=== PATIENT | male | born 1945 | race Caucasian/White ===

== ENCOUNTER → 2020-02-23 08:26 | Outpatient (BNVA) | payer OTHER, SELFPAY | PROVIDERS: Family Provider Family Medicine; PCP Family Medicine; Visit Provider Urology | DX: N13.5 Crossing vessel and stricture of ureter without hydronephrosis (principal); N52.1 Erectile dysfunction due to diseases classified elsewhere; N40.1 Benign prostatic hyperplasia with lower urinary tract symptoms | CPT/HCPCS: 81001 ==

== ENCOUNTER → 2020-06-21 15:55 | Outpatient (BNVA) | payer OTHER, SELFPAY | PROVIDERS: Family Provider Family Medicine; PCP Family Medicine; Visit Provider Dermatology | DX: D48.9 Neoplasm of uncertain behavior, unspecified (principal) | CPT/HCPCS: 88304 ==

== ENCOUNTER 2020-12-21 12:11 | Emergency (ER) | payer OTHER, SELFPAY ==
[2020-12-21 12:17] VITALS: BP 138/82; PULSE 61; RESP 16; TEMP 36.4; O2SAT 95; BMI 33.0
--- NOTE | 2020-12-21 13:33 | ECG_ITS ---
[facility] Test Date: 2020-12-21 Pat Name: Roverto Crawley Department: Room: Gender: Male Manager Medicare: : 1945 Requested By: Chandler Cheema Order Number: [id number] Rogelio MD: Francisco Carroll M.D. Measurements Intervals [place] Rate: 64 P: [place]: QRS: -39 QRSD: 97 T: 40 QT: 400 QTc: 413 Interpretive Statements Sinus bradycardia with a demand AV pacing ELECTRONIC VENTRICULAR PACEMAKER -- CONTOUR ANALYSIS BASED ON INTRINSIC RHYTHM MARKED LEFT AXIS DEVIATION [QRS AXIS < -30] Compared to ECG 02/02/2019 18:08:53 Sinus rhythm no longer present Electronically Signed On 12-22-2020 10:10:21 CDT by Francisco Carroll M.D. [id number]
[2020-12-21 13:59] LABS: Basophils % 0.3 %; Eosinophils # 0.1 10^3/uL (0.0-0.8); Eosinophils % 1.1 %; Hematocrit 44.4 % (42.0-52.0); Hemoglobin 14.8 g/dL (11.7-16.6); Lymphocytes # 2.7 10^3/uL (0.8-4.8); Lymphocytes % 29.1 %; Mean Corpuscular HGB Conc 33.3 g/dL (30.0-36.0); Mean Corpuscular Hemoglobin 30.6 pg (28.0-34.0); Mean Corpuscular Volume 91.9 fL (80-94); Mean Platelet Volume 10.1 fL (7.4-10.4); Monocytes # 1.1 10^3/uL (0.2-0.9); Monocytes % 11.9 %; Neutrophils # 5.37 10^3/uL (1.8-7.7); Neutrophils % 57.1 %; Nucleated Red Blood Cells % 0 %; Platelet Count 222 10^3/cmm (130-400); Red Blood Count 4.83 10^6/uL (4.1-5.3); White Blood Count 9.4 10^3/uL (4.0-10.0)
--- NOTE | 2020-12-21 14:12 | CT_ITS ---
WS: [id number] CT scan of the head, 12/21/2020 Clinical Data: leg weakness, dizziness Comparison: None. DLP: 1003.[address] scans at [facility] use at least one of these dose optimization techniques: automat ed exposure control; mA and/or kV adjustment per patient size (includes targeted exams where dose is matched to clinical indication); or iterative reconstruction. Findings: The ventricular system is minimally dilated without shift. No recent infarct or hemorrhage is seen. T here are no abnormal intracerebral masses. The cerebellum and brainstem are not remarkable. Bony windows of the skull and skull base show no fractures or erosions. The mastoid air cells, customer operations intern al auditory canals, sella turcica, intraorbital contents, and paranasal sinuses are unremarkable. CT/CT head wo con* [id number] Impression: Negative CT scan of the head
--- NOTE | 2020-12-21 14:12 | XR_ITS ---
WS: [id number] Portable AP upright chest, 12/21/2020 Clinical Data: weakness Comparison: Portable chest, 11/19/2017. Findings: No nodules, masses or effusions are seen. The heart is normal. The pulmonary vascularity is not increased. No pneumonia or pneumothorax is seen. The aortic arch and descending aorta show tortu osity. There is a permanent pacemaker unchanged in position. XR/XR chest 1V portable [id number] Impression: Atherosclerosis and prominent cardiac pacemaker.
[2020-12-21 14:22] LABS: Alanine Aminotransferase 21 U/L (0-41); Albumin Level 4.4 g/dL (3.5-5.2); Alkaline Phosphatase 83 IU/L (40-130); Anion Gap 15.1 (5-19); Aspartate Amino Transferase 22 U/L (0-40); Blood Urea Nitrogen 17 mg/dL (8-23); Calcium 8.8 mg/dL (8.5-10.5); Carbon Dioxide 25 mmol/L (22-29); Chloride 104 mmol/L (98-107); Globulin 2.4 g/dL (1.3-4.6); Glucose 92 mg/dL (65-115); Osmolality Calculated 291 mOsm/kg (285-295); Potassium 4.1 mmol/L (3.5-5.1); Sodium 140 mmol/L (136-145); Total Bilirubin 0.3 mg/dL (0.15-1.2); Total Protein 6.8 g/dL (6.6-8.7)
[2020-12-21 14:24] LABS: Add Urine Microscopic? NO; Charge for UA Resulting for Rev
[2020-12-21 14:37] LABS: Blood Urine Neg (Negative); Glucose Urine UA Norm (Normal); Ketones Urine Negative (Negative); Protein Urine Neg (Negative); Urine Appearance Clear (CLEAR); Urine Color Yellow (Yellow); pH Urine 5 (5-7)
[2020-12-21 14:38] LABS: Bilirubin Urine Neg (Negative); Leukocyte Esterase Urine Negative (Negative); Nitrate Urine Negative (Negative); Urobilinogen Urine Norm (Negative)
[2020-12-21 15:29] VITALS: PULSE 64; RESP 20; O2SAT 93
--- NOTE | 2020-12-21 15:44 | W.ED.DIZZY ---
HPI - Dizziness General: Chief Complaint: Dizziness Stated Complaint: dizzy, weakness, R hand numbness Time Seen by Provider: 12/21/20 13:56 History of Present Illness: HPI Narrative: 75-year-old male presents with some dizziness, being off balance. Patient reports that he has had some issues for about a month. The he thought maybe had a little bit of right-handed numbness today so he presented to be evaluated. Patient's dizziness seems to be more related when he stands up or closes his eyes. Patient states is more of just being off balance than actual vertigo. Associated symptoms: Denies chest pain, chills, nausea, palpitations or vomiting Review of Systems Const: Denies: fever(s) or chills Eyes: Denies: change in vision or blurry vision ENMT: Denies: throat pain Card: Denies: chest pain or palpitations Resp: Denies: dyspnea or productive cough GI: Denies: abdominal pain, nausea or vomiting : Denies: flank pain or difficulty urinating Skin/Breast: Denies: rash or pruritus Neuro: Reports: other (Please see HPI) Psych: Denies: anxiety Endo: Denies: polyuria PFSH ED PFSH: Medical History Atrial fibrillation BPH NOS w ur obs/LUTS Diabetes mellitus Elevated PSA (~08/13/20) Erectile dysfunction History of nonmelanoma skin cancer Hyperlipidemia Hypertension 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 Ureteral stricture Surgical History H/O hernia repair H/O spinal fusion History of knee replacement Family History Other CAD (coronary artery disease) Cancer Diabetes Stroke Social History Smoking and tobacco status: former smoker Alcohol intake: never Marital status: Physical Exam Const: COMMON NORMALS: no acute distress, average body habitus, patient oriented x3 and healthy appearing HENMT: COMMON NORMALS: normocephalic and atraumatic HEAD & SCALP: normocephalic and atraumatic Eye: COMMON NORMALS: Equal, round and reactive pupils present and EOMs intact bilaterally PUPIL: Yes Equal, round and reactive pupils present Neck/C-Spine: COMMON NORMALS: full ROM and supple Resp: COMMON NORMALS: normal respiratory effort, No retractions and clear to auscultation bilaterally AUSCULTATION: clear to auscultation bilaterally Cardio: COMMON NORMALS: regular rate and regular rhythm RATE: regular rate RHYTHM: regular rhythm GI: COMMON NORMALS: Normal to inspection, nondistended, normoactive bowel sounds present, Soft to palpation and non-tender PALPATION: Yes Soft to palpation Neuro: COMMON NORMALS: patient oriented x3, CN's II-XII intact bilaterally, moves all extremities and no focal motor deficits SPEECH: speech normal GAIT: Yes Normal gait present MOTOR EXAM: 5/5 motor strength present throughout Psych: COMMON NORMALS: Normal thought process present, cooperative, normal affect and speech normal SPEECH: Yes normal speech THOUGHT PROCESS: Normal thought process present Skin: COMMON NORMALS: no rashes or lesions noted GENERAL SKIN EXAM: no rashes or lesions noted Course Vital Signs: Vital signs: Vital Signs Temperature 97.5 F L 12/21/20 12:17 Pulse Rate 64 12/21/20 15:29 Respiratory Rate 20 H 12/21/20 15:29 Blood Pressure 138/82 12/21/20 12:17 Pulse Oximetry 93 12/21/20 15:29 MDM - Dizziness MDM Narrative: Medical decision making narrative: Patient symptoms have been going on for at least a month. He has no acute physical findings. Patient symptoms seem to be more with lack of proprioception versus actual vertigo. Discussed with him that need to follow-up with his primary care provider for further outpatient evaluation. Lab Data: Attestation: I reviewed the patient's lab results. Labs: Lab Results 12/21/20 12/21/20 12/21/20 Range/Units 13:42 13:42 13:42 WBC 9.4 (4.0-10.0) 10^3/ uL RBC 4.83 (4.1-5.3) 10^6/u L Hgb 14.8 (11.7-16.6) g/dL Hct 44.4 (42.0-52.0) % MCV 91.9 (80-94) fL MCH 30.6 (28.0-34.0) pg MCHC 33.3 (30.0-36.0) g/dL RDW 13.0 (12.1-15.1) % Plt Count 222 (130-400) 10^3/c mm MPV 10.1 (7.4-10.4) fL Neut % (Auto) 57.1 % Lymph % (Auto) 29.1 % [place] % (Auto) 11.9 % Eos % (Auto) 1.1 % Baso % (Auto) 0.3 % Neut # (Auto) 5.37 (1.8-7.7) 10^3/u L Lymph # (Auto) 2.7 (0.8-4.8) 10^3/u L [place] # (Auto) 1.1 H (0.2-0.9) 10^3/u L Eos # (Auto) 0.1 (0.0-0.8) 10^3/u L Baso # (Auto) 0.0 (0.0-0.1) 10^3/u L Nucleated RBC % (a uto) 0 % Nucleated RBCs # 0.0 /100WBC Sodium 140 (136-145) mmol/L Potassium 4.1 (3.5-5.1) mmol/L Chloride 104 (98-107) mmol/L Carbon Dioxide 25 (22-29) mmol/L Anion Gap 15.1 (5-19) BUN 17 (8-23) mg/dL Creatinine 1.0 (0.7-1.2) mg/dL GFR Calculation Not Reportable Glucose 92 (65-115) mg/dL Calculated Osmolal ity 291 (285-295) mOsm/k g Calcium 8.8 (8.5-10.5) mg/dL Magnesium 2.1 (1.7-2.3) mg/dL Total Bilirubin 0.3 (0.15-1.2) mg/dL AST 22 (0-40) U/L ALT 21 (0-41) U/L Alkaline Phosphata se 83 (40-130) IU/L Total Protein 6.8 (6.6-8.7) g/dL Albumin 4.4 (3.5-5.2) g/dL Globulin 2.4 (1.3-4.6) g/dL Urine Color (Yellow) Urine Appearance (CLEAR) Urine pH (5-7) Ur Specific Gravit y (1.005-1.030) Urine Protein (Negative) Urine Glucose (UA) (Normal) Urine Ketones (Negative) Urine Blood (Negative) Urine Nitrate (Negative) Urine Bilirubin (Negative) Urine Urobilinogen (Negative) mg/dL Ur Leukocyte Xenia ase (Negative) 12/21/20 Range/Units 14:17 WBC (4.0-10.0) 10^3/ uL RBC (4.1-5.3) 10^6/u L Hgb (11.7-16.6) g/dL Hct (42.0-52.0) % MCV (80-94) fL MCH (28.0-34.0) pg MCHC (30.0-36.0) g/dL RDW (12.1-15.1) % Plt Count (130-400) 10^3/c mm MPV (7.4-10.4) fL Neut % (Auto) % Lymph % (Auto) % [place] % (Auto) % Eos % (Auto) % Baso % (Auto) % Neut # (Auto) (1.8-7.7) 10^3/u L Lymph # (Auto) (0.8-4.8) 10^3/u L [place] # (Auto) (0.2-0.9) 10^3/u L Eos # (Auto) (0.0-0.8) 10^3/u L Baso # (Auto) (0.0-0.1) 10^3/u L Nucleated RBC % (a uto) % Nucleated RBCs # /100WBC Sodium (136-145) mmol/L Potassium (3.5-5.1) mmol/L Chloride (98-107) mmol/L Carbon Dioxide (22-29) mmol/L Anion Gap (5-19) BUN (8-23) mg/dL Creatinine (0.7-1.2) mg/dL GFR Calculation Glucose (65-115) mg/dL Calculated Osmolal ity (285-295) mOsm/k g Calcium (8.5-10.5) mg/dL Magnesium (1.7-2.3) mg/dL Total Bilirubin (0.15-1.2) mg/dL AST (0-40) U/L ALT (0-41) U/L Alkaline Phosphata se (40-130) IU/L Total Protein (6.6-8.7) g/dL Albumin (3.5-5.2) g/dL Globulin (1.3-4.6) g/dL Urine Color Yellow (Yellow) Urine Appearance Clear (CLEAR) Urine pH 5 (5-7) Ur Specific Gravit y 1.020 (1.005-1.030) Urine Protein Neg (Negative) Urine Glucose (UA) Norm (Normal) Urine Ketones Negative (Negative) Urine Blood Neg (Negative) Urine Nitrate Negative (Negative) Urine Bilirubin Neg (Negative) Urine Urobilinogen Norm (Negative) mg/dL Ur Leukocyte Xenia ase Negative (Negative) Imaging Data^: CXR: Attestation: I personally reviewed and interpreted this imaging study as follows: My impression: No acute findings Radiologist's impression: Negative chest x-ray CT Head: Radiologist's impression: Negative head CT EKG Data^: EKG 1: Attestation: I personally reviewed and interpreted this EKG as follows: EKG interpretation date: 12/21/20 EKG interpretation time: 13:53 Interpretation: Paced , no acute findins HR 64, non specific changes Discharge Plan Discharge Condition: Stable Prescriptions: No Action gabapentin 300 mg capsule 300 mg PO BEDTIME RF: 0 alendronate 70 mg tablet 70 mg PO Q7D RF: 0 apixaban 5 mg tablet 5 mg PO BID RF: 0 cholecalciferol (vitamin D3) 25 mcg (1,000 unit) capsule 1,000 unit PO DAILY RF: 0 rosuvastatin 20 mg tablet 10 mg PO DAILY RF: 0 tamsulosin 0.4 mg capsule 0.4 mg PO DAILY RF: 0 hydrochlorothiazide 25 mg tablet 25 mg PO DAILY RF: 0 valsartan 160 mg tablet 80 mg PO DAILY RF: 0 metformin 500 mg tablet 250 mg PO BID RF: 0 diltiazem HCl 120 mg capsule,extended release 24hr 120 mg PO DAILY RF: 0 furosemide 20 mg tablet 20 mg PO DAILY RF: 0 potassium chloride 20 mEq tablet,ER particles/crystals 10 meq PO DAILY RF: 0 metoprolol succinate 50 mg tablet extended release 24 hr 75 mg PO DAILY RF: 0 hydrocortisone 2.5 % Cream 1 applic TOPICAL BID PRN (Reason: SCALING ON FACE OR EARS) RF: 0 hydroxyzine HCl 10 mg Tablet 10 mg PO BID RF: 0 sodium fluoride-pot nitrate 1.1-5 % Paste 1 applic DENTAL DAILY RF: 0 benzoyl peroxide 2.5 % Cream 1 applic TOPICAL TID PRN (Reason: Acne) RF: 0 Discharge Orders: Discharge ED (Routine); Ordered 12/21/20 Ordered By: Chandler Cheema Referrals: Catrina Snyder [Primary Care Provider] - Discharge Diet: Usual diet Discharge Activity: Resume usual activity Patient Instructions: Dizziness (ED), Vertigo (ED) Activity Restrictions/Additional Instructions: Follow-up with your primary care provider for further evaluation and recheck of todays symptoms Coding Level of Care Code ED Recordings Librarian for Pily Aguirre
[2020-12-21 15:54] LABS: Magnesium 2.1 mg/dL (1.7-2.3)
[2020-12-21 16:25] VITALS: BP 104/71; PULSE 61; RESP 20; O2SAT 94
== END 2020-12-21 16:27 | disposition home or self-care (01) ==
PROVIDERS: Emergency Provider Student in an Organized Health Care Education/Training Program; PCP Psychiatry & Neurology Neurology
DX: R42 Dizziness and giddiness (principal); I48.91 Unspecified atrial fibrillation; E11.9 Type 2 diabetes mellitus without complications; E78.5 Hyperlipidemia, unspecified; I10 Essential (primary) hypertension; Z95.0 Presence of cardiac pacemaker; Z87.891 Personal history of nicotine dependence
CPT/HCPCS: 70450; 71045; 80053; 81003; 83735; 85025; 93005; 99283

== ENCOUNTER 2021-01-11 09:13 | Outpatient (RCR) | payer OTHER, SELFPAY | END 2021-02-01 23:59 | disposition home or self-care (01) | LOC: SPT 09:13 | PROVIDERS: PCP Psychiatry & Neurology Neurology; Referring Provider Family Medicine; Visit Provider Family Medicine | DX: I69.90 Unspecified sequelae of unspecified cerebrovascular disease (principal) | CPT/HCPCS: 97110; 97112; 97161 ==

== ENCOUNTER 2021-02-02 06:00 | Outpatient (RCR) | payer OTHER, SELFPAY | END 2021-03-04 23:59 | disposition home or self-care (01) | LOC: SPT 06:00 | PROVIDERS: PCP Psychiatry & Neurology Neurology; Referring Provider Family Medicine; Visit Provider Family Medicine | DX: I69.90 Unspecified sequelae of unspecified cerebrovascular disease (principal) | CPT/HCPCS: 97110; 97112 ==

== ENCOUNTER 2021-02-10 13:03 | Outpatient (CLI) | payer OTHER, SELFPAY ==
--- NOTE | 2021-02-10 | CT_ITS ---
WS: [id number] CTA HEAD AND NECK TECHNIQUE: Contrast enhanced CTA of the head and neck with coronal and sagittal reformatted images an d maximum intensity projection (MIP) images. NASCET criteria utilized. CLINICAL INFORMATION: CVA COMPARISON: None. DLP: 1449.[address] scans at [facility] use at least one of these dose optimization techniques: automat ed exposure control; mA and/or kV adjustment per patient size (includes targeted exams where dose is matched to clinical indication); or iterative reconstruction. FINDINGS: RIGHT: Right common carotid artery is patent. Mild calcified atheromatous disease right proximal ICA. No significant right ICA stenosis. Right ICA is patent to the skull base. LEFT: Left common carotid artery is patent. No significant left ICA stenosis. Left ICA is patent to t he skull base. INTRACRANIAL CTA: Both vertebral arteries are patent. Codominant and patent vertebral arteries bilaterally. Basilar art olivia is patent. Normal vascularity to the TORPEDOMAN'S MATE territory bilaterally. Persistent right TORPEDOMAN'S MATE. Cavernous carotid calcification. Patent anterior communicating artery. Hypoplastic right A1 segment. Normal vascularity to the JIM and MCA territories bilaterally. No evidence of flow-limiting stenosis or aneurysm. Lung apices are well aerated. 2 right thyroid nodules measuring up to 17 mm. Normal posterior nasopha rynx. Advanced spondylitic changes cervical spine with ankylosis C5-C7. Anterior hypertrophic changes . Normal visualized dural venous sinuses. CT/CT angio headneck* [id number] IMPRESSION: 1. No significant ICA stenosis bilaterally. Mild calcified atheromatous plaque right carotid bulb. Both ICAs are patent to the skull base. 2. Mild cavernous carotid calcification. No flow-limiting intracranial stenosi s. 3. Normal variant hypoplastic right A1 segment. 4. Codominant and patent vertebral arteries bilaterally. Persistent right feta l TORPEDOMAN'S MATE. 5. No other significant findings. 6. Right thyroid nodules. This can be followed up with ultrasound.
--- NOTE | 2021-02-10 | CT_ITS ---
WS: [id number] CT HEAD TECHNIQUE: Noncontrast CT of the head obtained from the skullbase to the vertex. CLINICAL INFORMATION: CVA COMPARISON: CT December 21, 2020 DLP: 1058.[address] scans at [facility] use at least one of these dose optimization techniques: automat ed exposure control; mA and/or kV adjustment per patient size (includes targeted exams where dose is matched to clinical indication); or iterative reconstruction. FINDINGS: No evidence of intracranial hemorrhage or mass effect. Ventricular system and basal cisterns are dunaway nt. Mild small vessel changes with mild parenchymal volume loss. No extra-axial fluid collections. No evidence of mass or mass effect. Normal duggan-white differentiation. Paranasal sinuses and mastoid air cells are well aerated. .Normal visualized soft tissues. CT/CT head wo con* [id number] IMPRESSION: 1. No evidence of intracranial hemorrhage or mass effect. 2. Mild small vessel changes. Mild parenchymal volume loss. 3. No acute intracranial findings.
[2021-02-10] MEDS: iohexol 350 mg/mL 100 mL Btl IV (14:14)
== END 2021-02-10 13:04 | disposition home or self-care (01) ==
LOC: RADWPI 13:07
PROVIDERS: PCP Psychiatry & Neurology Neurology; Visit Provider Family Medicine
DX: I63.9 Cerebral infarction, unspecified (principal); E04.2 Nontoxic multinodular goiter; I65.23 Occlusion and stenosis of bilateral carotid arteries
CPT/HCPCS: 70450; 70496; 70498; Q9967

== ENCOUNTER 2021-05-24 06:00 | Outpatient (RCR) | payer OTHER, SELFPAY | END 2021-06-04 23:59 | disposition home or self-care (01) | LOC: SPT 06:00 | PROVIDERS: PCP Psychiatry & Neurology Neurology; Referring Provider Family Medicine; Visit Provider Family Medicine | DX: M54.16 Radiculopathy, lumbar region (principal) | CPT/HCPCS: 97110; 97161 ==

== ENCOUNTER 2021-05-25 12:21 | Outpatient (CLI) | payer OTHER, SELFPAY ==
--- NOTE | 2021-05-25 12:30 | US_ITS ---
WS: [id number] ULTRASOUND THYROID TECHNIQUE: Ultrasound of the thyroid. CLINICAL INFORMATION: NODULE COMPARISON: None. FINDINGS: Thyroid: Right and left thyroid lobes are normal in size and echotexture. Isoechoic right thyroid nod ule in the mid thyroid measuring 1.9 x 1.6 x 2.2 cm. Additional nodule in the thyroid isthmus measuri ng 2.0 x 0.9 x 2.4 cm. No nodules in the left thyroid. Right thyroid lobe: 4.0 cm x 2.1 cm x 2.5 cm Left thyroid lobe: 2.8 cm x 1.5 cm x 1.1 cm. Isthmus: 0.6 mm. Cervical lymphadenopathy: None. US/US thyroid [id number] IMPRESSION: Isoechoic right thyroid nodule in the mid thyroid measuring 1.9 x 1.6 x 2.2 cm. Additional nodule in the thyroid isthmus measuring 2.0 x 0.9 x 2.4 cm. Recommen d further evaluation of the above 2 solid nodules with FNA.
== END 2021-05-25 12:22 | disposition home or self-care (01) ==
LOC: RAD 12:22
PROVIDERS: PCP Psychiatry & Neurology Neurology; Visit Provider Family Medicine
DX: E04.2 Nontoxic multinodular goiter (principal)
CPT/HCPCS: 76536

== ENCOUNTER 2021-06-05 06:00 | Outpatient (RCR) | payer OTHER, SELFPAY | END 2021-07-04 23:59 | disposition home or self-care (01) | LOC: SPT 06:00 | PROVIDERS: PCP Psychiatry & Neurology Neurology; Visit Provider Family Medicine | DX: M54.16 Radiculopathy, lumbar region (principal) | CPT/HCPCS: 97110 ==

== ENCOUNTER 2021-07-05 06:00 | Outpatient (RCR) | payer OTHER, SELFPAY | END 2021-08-04 23:59 | disposition home or self-care (01) | LOC: SPT 06:00 | PROVIDERS: PCP Psychiatry & Neurology Neurology; Visit Provider Family Medicine | DX: M54.16 Radiculopathy, lumbar region (principal) | CPT/HCPCS: 97110 ==

== ENCOUNTER → 2021-11-03 08:46 | Outpatient (BNVA) | payer OTHER, SELFPAY | PROVIDERS: PCP Psychiatry & Neurology Neurology; Visit Provider Internal Medicine Cardiovascular Disease | DX: Z95.0 Presence of cardiac pacemaker (principal) ==

== ENCOUNTER → 2021-11-13 13:41 | Outpatient (BNVA) | payer OTHER, SELFPAY | PROVIDERS: PCP Psychiatry & Neurology Neurology; Visit Provider Nurse Practitioner Family | DX: I10 Essential (primary) hypertension (principal); I48.11 Longstanding persistent atrial fibrillation; Z95.0 Presence of cardiac pacemaker; Z87.891 Personal history of nicotine dependence | CPT/HCPCS: 99213; 99214 ==

== ENCOUNTER 2021-11-15 08:13 | Outpatient (CLI) | payer OTHER, SELFPAY ==
--- NOTE | 2021-11-15 08:32 | CT_ITS ---
WS: [id number] CT CERVICAL SPINE HISTORY: CERVICAL RADICULOPATHY, limited range of motion. Numbness in both hands. TECHNIQUE: Contiguous 2.5 mm axial imaging performed through the entire cervical spine. Sagittal and coronal reformats also performed. All CT scans at [facility] use at least one of these dose o ptimization techniques: automated exposure control; mA and/or kV adjustment per patient size (include s targeted exams where dose is matched to clinical indication); or iterative reconstruction. DLP: 281.47 mGy.cm COMPARISON: None available. Mild straightening and slight reversal of the normal cervical lordosis. There is fusion across the di sc spaces of C5-6 and C6-7. This is a bony fusion. No hardware is present. Mild narrowing of the C7-T 1 disc space. Osteophytes throughout the cervical spine. Craniocervical junction is normally aligned. The odontoid is intact. The lateral masses are aligned. Facet joints are narrowed and sclerotic. C2-C3: Degenerative changes surrounding the odontoid tip. No fracture. Mild osteophytic ridging small osteophyte encroaching upon the LEFT lateral thecal sac and LEFT foramen. Bilateral facet joint arth ritis. Mild LEFT foraminal stenosis. C3-C4: Marked osteophytic ridging and facet joint arthritis. Resulting in mild central and bilateral foraminal stenosis, RIGHT greater than LEFT. C4-C5: Very small central disc protrusion and mild osteophytic ridging. No high-grade stenosis. C5-C6: Diffuse osteophytic ridging asymmetric to the RIGHT. There is mild encroachment into the subar ticular recess and proximal foramen. Mild central and RIGHT foraminal stenosis. C6-C7: Mild osteophytic ridging and mild RIGHT foraminal narrowing due to osteophyte disease. C7-T1: Diffuse osteophytic ridging and facet joint arthritis. Mild encroachment into the foramina. Lung apices are clear. CT/CT cervical spin wo con* [id number] IMPRESSION: 1. 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 2. Mild straightening of the normal cervical lordosis. 3. No fracture. 4. Mild LEFT foraminal stenosis at C2-3. 5. Mild central and bilateral foraminal stenosis at C3-4. 6. Mild central and RIGHT foraminal stenosis at C5-6. 7. Mild RIGHT foraminal stenosis at C6-7.
== END 2021-11-15 08:14 | disposition home or self-care (01) ==
LOC: RAD 08:21
PROVIDERS: PCP Psychiatry & Neurology Neurology; Visit Provider Family Medicine
DX: M54.12 Radiculopathy, cervical region (principal); M48.02 Spinal stenosis, cervical region; Z98.1 Arthrodesis status
CPT/HCPCS: 72125

== ENCOUNTER 2022-03-27 18:16 | Emergency (ER) | payer OTHER, MEDICARE, SELFPAY ==
--- NOTE | 2022-03-27 18:26 | ECG_ITS ---
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 Measurements Intervals [place] Rate: 61 P: 83 [place]: 187 QRS: -10 QRSD: 97 T: 25 QT: 431 QTc: 437 Interpretive Statements ELECTRONIC ATRIAL PACEMAKER INCOMPLETE RIGHT BUNDLE BRANCH BLOCK [90+ ms QRS DURATION, TERMINAL R IN V1/V2, 40+ ms S IN I/aVL/V4/V5/V6] ABNORMAL RHYTHM ECG Compared to ECG 12/21/2020 13:53:01 Incomplete right bundle-branch block now present Sinus bradycardia no longer present AV dual-paced complex(es) or rhythm no longer present Ventricular-paced complex(es) or rhythm no longer present Left-axis deviation no longer present Electronically Signed On 03-28-2022 0:17:03 CDT by Jett Rod M.D. [id number]
[2022-03-27 18:27] VITALS: BP 146/76; PULSE 63; RESP 18; TEMP 36.8; O2SAT 95; BMI 33.6
--- NOTE | 2022-03-27 18:41 | PC.NURSE ---
chest pain for a couple hours and shortness of breath began just prior to arrival. has a pacemaker. pt reports he can feel his heart skipping a beat and his pacemaker kick in. pt reports chest pain began at rest, while watching the news. describes pain as tightness. denies nausea, vomiting, diarrhea, fever. Reports hx afib. lung sounds clear bilat. bowel sounds present. abdomen soft and nontender to palpation.
--- NOTE | 2022-03-27 18:56 | PC.NURSE ---
report given to MORGAN Morocho
[2022-03-27 19:15] LABS: Basophils % 0.4 %; Eosinophils # 0.2 10^3/uL (0.0-0.8); Eosinophils % 1.9 %; Hematocrit 42.7 % (42.0-52.0); Lymphocytes # 2.9 10^3/uL (0.8-4.8); Lymphocytes % 31.5 %; Mean Corpuscular HGB Conc 32.8 g/dL (30.0-36.0); Mean Corpuscular Hemoglobin 30.8 pg (28.0-34.0); Mean Corpuscular Volume 94.1 fl (80-94); Mean Platelet Volume 9.8 fL (7.4-10.4); Monocytes % 10.6 %; Neutrophils # 5.08 10^3/uL (1.8-7.7); Nucleated Red Blood Cells % 0 %; Platelet Count 244 10^3/cmm (130-400); Red Blood Count 4.54 10^6/uL (4.1-5.3); White Blood Count 9.3 10^3/uL (4.0-10.0)
[2022-03-27 19:18] VITALS: BP 152/86; RESP 22; O2SAT 91
[2022-03-27 19:29] LABS: D Dimer 0.32 ug/mIFEU (0-0.59)
[2022-03-27 19:39] LABS: Troponin(5th) Baseline 12 ng/L (0-15)
[2022-03-27 19:42] LABS: Alanine Aminotransferase 20 U/L (0-41); Albumin Level 4.3 g/dL (3.5-5.2); Alkaline Phosphatase 88 U/L (40-130); Anion Gap 16.6 (5-19); Aspartate Amino Transferase 20 U/L (0-40); Blood Urea Nitrogen 17 mg/dL (8-23); Calcium 9.3 mg/dL (8.5-10.5); Carbon Dioxide 26 mmol/L (22-29); Chloride 102 mmol/L (98-107); Globulin 2.1 g/dL (1.3-4.6); Glucose 93 mg/dL (65-115); Osmolality Calculated 293 mOsm/kg (285-295); Potassium 3.6 mmol/L (3.5-5.1); Sodium 141 mmol/L (136-145); Total Bilirubin 0.3 mg/dL (0.15-1.2); Total Protein 6.4 g/dL (6.6-8.7)
[2022-03-27] MEDS: sodium chloride 0.9% 1,000 ML 999 ML IV (20:00)
[2022-03-27 20:01] VITALS: BP 165/98; PULSE 63; RESP 25; O2SAT 93
[2022-03-27 20:38] VITALS: BP 163/80; PULSE 65; RESP 20; O2SAT 95
--- NOTE | 2022-03-27 21:12 | ECG_ITS ---
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 Measurements Intervals [place] Rate: 65 P: 99 [place]: 176 QRS: -86 QRSD: 162 T: 84 QT: 494 QTc: 515 Interpretive Statements ELECTRONIC ATRIAL PACEMAKER ELECTRONIC VENTRICULAR PACEMAKER Compared to ECG 03/27/2022 18:26:04 Incomplete right bundle-branch block no longer present Electronically Signed On 03-28-2022 0:18:16 CDT by Jett Rod M.D. [id number]
--- NOTE | 2022-03-27 21:15 | W.ED.CHESTPA ---
HPI - Chest Pain General: Chief Complaint: Chest Pain Stated Complaint: Chest Pains Time Seen by Provider: 03/27/22 18:34 History of Present Illness: 77-year-old male presenting today with left-sided chest pain. Patient notes onset of pain 2 hours for arrival. Pain has been consistent. Also with intermittent lightheadedness. No prior history of coronary artery disease. Does have a history of atrial fibrillation for which he has a pacemaker. He denies fevers or chills. He does note some shortness of breath. Has a history of COPD. But does not feel like it is acting up. He denies pain or swelling in his lower extremities. Denies history of blood clots. Denies recent travel or recent surgeries. Review of Systems General: Reports: 10 or more systems reviewed and unremarkable except in HPI and below PFSH ED PFSH: Medical History Atrial fibrillation BPH NOS w ur obs/LUTS Diabetes mellitus Elevated PSA (~08/13/20) Erectile dysfunction History of nonmelanoma skin cancer Hyperlipidemia Hypertension 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 Ureteral stricture Surgical History H/O hernia repair H/O spinal fusion History of knee replacement Family History Other CAD (coronary artery disease) Cancer Diabetes Stroke Social History Smoking and tobacco status: former smoker Alcohol intake: never Marital status: Physical Exam Const: COMMON NORMALS: no acute distress, patient oriented x3 and alert GENERAL APPEARANCE: cooperative ORIENTATION/CONSCIOUSNESS: Yes awake, Yes oriented to person, Yes oriented to place and Yes oriented to time HENMT: COMMON NORMALS: normocephalic, atraumatic, external ears normal, Normal external nose present and moist oral mucous membranes HEAD & SCALP: normal to inspection, normocephalic and atraumatic NOSE: Normal external nose present GENERAL EAR: hearing grossly impaired EXTERNAL EAR: Yes external ears normal Eye: COMMON NORMALS: Equal, round and reactive pupils present, EOMs intact bilaterally, conjunctivae normal and no scleral icterus GENERAL EYE: appearance normal, both eyes and all related structures EYELID: eyelids normal CONJUNCTIVA: Yes conjunctivae normal SCLERA: sclerae normal PUPIL: Yes Equal, round and reactive pupils present Neck/C-Spine: COMMON NORMALS: full ROM, supple and no JVD GENERAL: Yes normal visual inspection Lymph: LYMPHATIC: no lymphadenopathy noted and no lymphedema noted Chest: COMMONS NORMALS: normal inspection of the chest Resp: COMMON NORMALS: normal respiratory effort, No retractions and No use of accessory muscles Cardio: COMMON NORMALS: no JVD, regular rate and regular rhythm RATE: regular rate RHYTHM: regular rhythm GI: COMMON NORMALS: Normal to inspection, nondistended, normoactive bowel sounds present : COMMON NORMALS: Yes no CVA tenderness BLADDER/KIDNEY EXAM: Yes no CVA tenderness Back/Pelvis: COMMON NORMALS: no CVA tenderness and thoracic and lumbar spine normal to inspection Extremity: COMMON NORMALS: normal to inspection, full ROM and capillary refill normal GENERAL: Yes normal exam except as noted Neuro: COMMON NORMALS: patient oriented x3, CN's II-XII intact bilaterally, moves all extremities, no focal motor deficits, no sensory deficits noted and gait normal SENSORIUM/ORIENTATION: Yes alert, Yes oriented to person, Yes oriented to place and Yes oriented to time Psych: COMMON NORMALS: mental status grossly normal, Normal thought process present, cooperative and normal affect THOUGHT PROCESS: Normal thought process present Skin: COMMON NORMALS: no rashes or lesions noted and no wounds GENERAL SKIN EXAM: no rashes or lesions noted Course Vital Signs: Vital signs: Vital Signs Temperature 98.2 F 03/27/22 18:27 Pulse Rate 65 03/27/22 20:38 Respiratory Rate 20 H 03/27/22 20:38 Blood Pressure 163/80 03/27/22 20:38 Pulse Oximetry 95 03/27/22 20:38 Oxygen Delivery Me thod 03/27/22 20:38 MDM - Chest Pain Medical Decision Making 77-year-old male presenting today with chest pain. Initial EKG without evidence of ST wave changes. Repeat EKG with evidence of ventricular capture pacemaker. Patient noting almost complete resolution of symptoms. Initial troponin and repeat troponin are within normal range. CBC and CMP are unremarkable. Chest x-ray is unremarkable. Recommended routine follow-up with patient's inspector watch train. Patient was given return precautions and recommended routine outpatient follow-up Lab Data : 03/27/22 19:03/27/22 19: Laboratory Results WBC 9.3 10^3/uL (4.0-10.0) 03/27/22: RBC 4.54 10^6/uL (4.1-5.3) 03/27/22 19: Hgb 14.0 g/dL (11.7-16.6) 03/27/22: Hct 42.7 % (42.0-52.0) 03/27/22: MCV 94.1 fl (80-94) H 03/27/22: MCH 30.8 pg (28.0-34.0) 03/27/22: MCHC 32.8 g/dL (30.0-36.0) 03/27/22: RDW 13.0 % (12.1-15.1) 03/27/22: Plt Count 244 10^3/cmm (130-400) 03/27/22: MPV 9.8 fL (7.4-10.4) 03/27/22 19: Neut % (Auto) 55.0 % 03/27/22: Lymph % (Auto) 31.5 % 03/27/22: Stanley % (Auto) 10.6 % 03/27/22: Eos % (Auto) 1.9 % 03/27/22: Baso % (Auto) 0.4 % 03/27/22: Neut # (Auto) 5.08 10^3/uL (1.8-7.7) 03/27/22: Lymph # (Auto) 2.9 10^3/uL (0.8-4.8) 03/27/22 19: Stanley # (Auto) 1.0 10^3/uL (0.2-0.9) H 03/27/22: Eos # (Auto) 0.2 10^3/uL (0.0-0.8) 03/27/22: Baso # (Auto) 0.0 10^3/uL (0.0-0.1) 03/27/22: Nucleated RBC % (auto) 0 % 03/27/22:01 Nucleated RBCs # 0.0 /100WBC 03/27/22 19:01 D-Dimer 0.32 ug/mIFEU (0-0.59) 03/27/22 19:01 Sodium 141 mmol/L (136-145) 03/27/22 19:01 Potassium 3.6 mmol/L (3.5-5.1) 03/27/22 19:01 Chloride 102 mmol/L (98-107) 03/27/22 19:01 Carbon Dioxide 26 mmol/L (22-29) 03/27/22 19:01 Anion Gap 16.6 (5-19) 03/27/22 19:01 BUN 17 mg/dL (8-23) 03/27/22 19:01 Creatinine 0.8 mg/dL (0.7-1.2) 03/27/22 19:01 GFR Calculation Not Reportable 03/27/22 19: Glucose 93 mg/dL (65-115) 03/27/22 19:01 Calculated Osmolality 293 mOsm/kg (285-295) 03/27/22 19:01 Calcium 9.3 mg/dL (8.5-10.5) 03/27/22 19:01 Total Bilirubin 0.3 mg/dL (0.15-1.2) 03/27/22 19:01 AST 20 U/L (0-40) 03/27/22 19:01 ALT 20 U/L (0-41) 03/27/22 19:01 Alkaline Phosphatase 88 U/L (40-130) 03/27/22 19:01 Troponin T Baseline 12 ng/L (0-15) 03/27/22 19: Troponin T 120 Minute 12.57 ng/L (0-15) 03/27/22 21:23 Total Protein 6.4 g/dL (6.6-8.7) L 03/27/22 19:01 Albumin 4.3 g/dL (3.5-5.2) 03/27/22 19: Globulin 2.1 g/dL (1.3-4.6) 03/27/22 19:01 Discharge Plan Discharge Patient Disposition: Home Clinical Impression: Chest pain Condition: Stable Prescriptions: No Action gabapentin 300 mg capsule 300 mg PO BEDTIME alendronate 70 mg tablet 70 mg PO Q7D Rx Instructions: TAKE ON SATURDAY. apixaban 5 mg tablet 5 mg PO BID cholecalciferol (vitamin D3) 25 mcg (1,000 unit) capsule 1,000 unit PO DAILY rosuvastatin 20 mg tablet 10 mg PO DAILY tamsulosin 0.4 mg capsule 0.4 mg PO DAILY Rx Instructions: TAKE APPROXIMATELY 30 MINUTES AFTER THE SAME MEAL EACH DAY. hydrochlorothiazide 25 mg tablet 25 mg PO DAILY valsartan 160 mg tablet 80 mg PO DAILY Rx Instructions: TAKE 1/2 TABLET DAILY metformin 500 mg tablet 250 mg PO BID Rx Instructions: TAKE 1/2 TABLET 2 TIMES DAILY diltiazem HCl 120 mg capsule,extended release 24hr 120 mg PO DAILY furosemide 20 mg tablet 20 mg PO DAILY potassium chloride 20 mEq tablet,ER particles/crystals 10 meq PO DAILY Rx Instructions: TAKE 1/2 TABLET DAILY metoprolol succinate 50 mg tablet extended release 24 hr 100 mg PO DAILY tramadol 50 mg tablet 50 mg PO Q6H PRN hydrocortisone 2.5 % Cream 1 applic TOPICAL BID PRN (Reason: SCALING ON FACE OR EARS) hydroxyzine HCl 10 mg Tablet 10 mg PO BID sodium fluoride-pot nitrate 1.1-5 % Paste 1 applic DENTAL DAILY Rx Instructions: USE ONCE DAILY TOOTHPASTE benzoyl peroxide 2.5 % Cream 1 applic TOPICAL TID PRN (Reason: Acne) Discharge Orders: Discharge ED (Routine); Ordered 03/27/22 Ordered By: Gary Bauman Referrals: Catrina Snyder [Primary Care Provider] - Discharge Diet: Advance as tolerated Discharge Activity: Resume usual activity Patient Instructions: Chest Pain (ED) Coding Level of Care Code ED Hazardous Materials Waste Technician for Chg Fwd Exam Comprehensive
[2022-03-27 21:58] LABS: Troponin 5 2HR 12.57 ng/L (0-15)
[2022-03-27 22:18] VITALS: BP 145/90; PULSE 69; RESP 20; TEMP 36.3; O2SAT 94
--- NOTE | 2022-03-27 22:28 | PC.NURSE ---
Discharge instructions reviewed with patient including no changes to medications and when to return. No c/o at time of discharge, patient ambulated to POV/, int dc'd
[2022-03-27 23:53] LABS: Troponin 5 2HR Delta 0.57 ABS# (0-10)
== END 2022-03-27 22:29 | disposition home or self-care (01) ==
PROVIDERS: Emergency Provider Emergency Medicine; PCP Psychiatry & Neurology Neurology
DX: R07.9 Chest pain, unspecified (principal); Z79.84 Long term (current) use of oral hypoglycemic drugs; E11.9 Type 2 diabetes mellitus without complications; E78.5 Hyperlipidemia, unspecified; I10 Essential (primary) hypertension; Z95.0 Presence of cardiac pacemaker; Z87.891 Personal history of nicotine dependence
CPT/HCPCS: 80053; 84484; 85025; 85378; 93005; 96360; 99285; J7030

== ENCOUNTER → 2022-04-20 09:20 | Outpatient (BNVA) | payer OTHER, SELFPAY | PROVIDERS: PCP Psychiatry & Neurology Neurology; Visit Provider Internal Medicine Cardiovascular Disease | DX: Z45.010 Encounter for checking and testing of cardiac pacemaker pulse generator [battery] (principal) | CPT/HCPCS: 93280 ==

== ENCOUNTER → 2022-05-14 13:19 | Outpatient (BNVA) | payer OTHER, SELFPAY | PROVIDERS: PCP Psychiatry & Neurology Neurology; Visit Provider Internal Medicine Cardiovascular Disease | DX: I48.11 Longstanding persistent atrial fibrillation (principal); Z79.01 Long term (current) use of anticoagulants; R07.9 Chest pain, unspecified; Z95.0 Presence of cardiac pacemaker; I10 Essential (primary) hypertension; E78.5 Hyperlipidemia, unspecified; Z87.891 Personal history of nicotine dependence | CPT/HCPCS: 99214 ==

== ENCOUNTER 2022-06-11 16:49 | Emergency (ER) | payer OTHER, SELFPAY ==
[2022-06-11 17:21] VITALS: BP 160/91; PULSE 65; RESP 18; TEMP 36.9; O2SAT 94
--- NOTE | 2022-06-11 17:52 | ED_ITS ---
HPI - Back Pain/Injury General: Chief Complaint: Back Pain/Injury Stated Complaint: Back and hip pain Time Seen by Provider: 06/11/22 17:51 History of Present Illness: 77-year-old male patient comes in today with some low back pain for the last 2 weeks. This afternoon about 2 hours prior to arrival to the ER patient bent over and felt a slip/pop in his low back. Since then patient has had difficulty with standing due to pain in the low back. Patient does have osteoporosis in the back. Patient appears nontoxic. Patient appears in moderate pain. Patient denies any fever or systemic symptoms. Associated symptoms: Deny nausea or vomiting Review of Systems General: Reports: 10 or more systems reviewed and unremarkable except in HPI and below Card: Denies: chest pain Resp: Denies: dyspnea GI: Denies: nausea, vomiting, diarrhea or constipation : Denies: difficulty urinating Musc: Reports: back pain Skin/Breast: Denies: rash PFSH ED PFSH: Medical History Atrial fibrillation BPH NOS w ur obs/LUTS Diabetes mellitus Elevated PSA (~08/13/20) Erectile dysfunction History of nonmelanoma skin cancer Hyperlipidemia Hypertension 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 Ureteral stricture Surgical History H/O hernia repair H/O spinal fusion History of knee replacement Family History Other CAD (coronary artery disease) Cancer Diabetes Stroke Social History Smoking and tobacco status: former smoker Alcohol intake: never Marital status: Physical Exam Const: COMMON NORMALS: alert HENMT: COMMON NORMALS: atraumatic HEAD & SCALP: atraumatic Neck/C-Spine: COMMON NORMALS: full ROM Chest: COMMONS NORMALS: normal palpation of entire chest wall Resp: COMMON NORMALS: normal respiratory effort Cardio: COMMON NORMALS: regular rate RATE: regular rate GI: COMMON NORMALS: non-tender : COMMON NORMALS: Yes no CVA tenderness BLADDER/KIDNEY EXAM: Yes no CVA tenderness Back/Pelvis: COMMON NORMALS: no CVA tenderness THORACIC SPINE/UPPER BACK: No thoracic spinal tenderness LUMBAR SPINE/LOWER BACK: No lumbar spinal tenderness and Yes paraspinal muscle tenderness Extremity: COMMON NORMALS: normal to inspection Neuro: SENSORIUM/ORIENTATION: Yes alert Skin: COMMON NORMALS: turgor normal GENERAL SKIN EXAM: turgor normal Course Vital Signs: Vital signs: Vital Signs Temperature 98.4 F 06/11/22 17:21 Pulse Rate 65 06/11/22 17:21 Respiratory Rate 18 06/11/22 17:21 Blood Pressure 160/91 06/11/22 17:21 Pulse Oximetry 94 06/11/22 17:21 MDM - Back Pain/Injury Medical Decision Making 77-year-old male patient comes in today for complaints of low back pain. On exam patient has no spinal tenderness on palpation. Patient does have some muscle tenderness worse on the right than the left. Patient can stand but has increased pain with standing. Differential diagnosis includes but not limited to fracture, strain, intervertebral disc disease, facet arthropathy. X-ray of the lumbar spine we do note degenerative changes but no obvious acute fractures. Reviewed exam with patient with recommendations for treatment with Celebrex for the next 10 days for pain and inflammation. I did review patient to monitor for bleeding since he is on apixaban. Patient reported understanding and agreed to plan. Hydrocodone as needed for severe pain. Patient reported understanding of care plan need for follow-up or return to the ER for worsening symptoms. Labs Radiology Impressions Lumbar Spine X-Ray 06/11/22 17:58 IMPRESSION: 1. Multilevel moderate to severe disc space narrowing throughout the spine with productive degenerative endplate changes. 2. Scattered vascular calcifications. Discharge Plan Discharge Patient Disposition: Home Clinical Impression: Lumbar arthropathy Condition: Stable Prescriptions: New celecoxib 100 mg capsule 100 mg PO BID Qty: 20 0RF hydrocodone-acetaminophen 5-325 mg tablet 1 tab PO Q8H PRN (Reason: pain (scale score 7-10)) Qty: 10 0RF No Action gabapentin 300 mg capsule 300 mg PO BEDTIME alendronate 70 mg tablet 70 mg PO Q7D Rx Instructions: TAKE ON SATURDAY. apixaban 5 mg tablet 5 mg PO BID cholecalciferol (vitamin D3) 25 mcg (1,000 unit) capsule 1,000 unit PO DAILY rosuvastatin 20 mg tablet 10 mg PO DAILY tamsulosin 0.4 mg capsule 0.4 mg PO DAILY Rx Instructions: TAKE APPROXIMATELY 30 MINUTES AFTER THE SAME MEAL EACH DAY. hydrochlorothiazide 25 mg tablet 25 mg PO DAILY valsartan 160 mg tablet 80 mg PO DAILY Rx Instructions: TAKE 1/2 TABLET DAILY metformin 500 mg tablet 250 mg PO BID Rx Instructions: TAKE 1/2 TABLET 2 TIMES DAILY diltiazem HCl 120 mg capsule,extended release 24hr 120 mg PO DAILY metoprolol succinate 50 mg tablet extended release 24 hr 100 mg PO DAILY donepezil 5 mg tablet 5 mg PO DAILY hydrocortisone 2.5 % Cream 1 applic TOPICAL BID PRN (Reason: SCALING ON FACE OR EARS) hydroxyzine HCl 10 mg Tablet 10 mg PO BID sodium fluoride-pot nitrate 1.1-5 % Paste 1 applic DENTAL DAILY Rx Instructions: USE ONCE DAILY TOOTHPASTE benzoyl peroxide 2.5 % Cream 1 applic TOPICAL TID PRN (Reason: Acne) Discharge Orders: Discharge ED (Routine); Ordered 06/11/22 Ordered By: Damien Srinivasan Referrals: Catrina Snyder [Primary Care Provider] - Discharge Diet: Usual diet Discharge Activity: Increase activity as tolerated Patient Instructions: Back Pain (ED), Opioid Safety Activity Restrictions/Additional Instructions: Use medication as directed. Take Celebrex twice a day for pain and inflammation for the next 10 days. Use hydrocodone as needed for severe pain 1 tablet every 8 hours. Drink plenty of water with medication. Follow-up with primary care in 3 to 5 days for recheck. Use a walker for ambulation. Maintain activity to no rmal as much as possible. Return to ER for fever greater than 100.4, uncontrolled pain, loss of bowel or bladder control. Coding Level of Care Code ED Ground Products Director for Pily Fwd Exam Comprehensive
--- NOTE | 2022-06-11 17:58 | XRR_ITS ---
PROCEDURE INFORMATION: Exam: XR Lumbosacral Spine Exam date and time: 06/11/2022 6:28 PM Age: 77 years old Clinical indication: Low back pain; Additional info: Back pain, osteoporosis TECHNIQUE: Imaging protocol: Radiologic exam of the lumbosacral spine. Views: 2 or 3 views. COMPARISON: CT abdomen pelvis w con* [id number] 11/10/2018 9:25 AM FINDINGS: Bones/joints: Multilevel moderate to severe disc space narrowing throughout the spine with productive degenerative endplate changes. Soft tissues: Unremarkable. Vasculature: Scattered vascular calcifications. XR/XR lumbar spine 2-3V* [id number] IMPRESSION: 1. Multilevel moderate to severe disc space narrowing throughout the spine with productive degenerative endplate changes. 2. Scattered vascular calcifications.
[2022-06-11] MEDS: dexamethasone 10 mg/mL INJ IM (18:25)
[2022-06-11] MEDS: ketorolac 30 mg/mL INJ 15 MG IM (18:26)
[2022-06-11] MEDS: HYDROcodone-acetaminophen 5-325 mg Tablet 1 TAB PO (18:26)
== END 2022-06-11 19:02 | disposition home or self-care (01) ==
PROVIDERS: Emergency Provider Nurse Practitioner Family; PCP Psychiatry & Neurology Neurology
DX: M47.896 Other spondylosis, lumbar region (principal); Z79.01 Long term (current) use of anticoagulants
CPT/HCPCS: 72100; 96372; 99284; J1100; J1885

== ENCOUNTER → 2022-06-19 14:26 | Outpatient (BNVA) | payer OTHER, SELFPAY | PROVIDERS: PCP Family Medicine; Visit Provider Urology | DX: N40.1 Benign prostatic hyperplasia with lower urinary tract symptoms (principal); N13.5 Crossing vessel and stricture of ureter without hydronephrosis; N21.0 Calculus in bladder; N52.1 Erectile dysfunction due to diseases classified elsewhere; Z80.42 Family history of malignant neoplasm of prostate; R30.0 Dysuria | CPT/HCPCS: 51741; 51798; 52000; 81003; 99204 ==

== ENCOUNTER 2022-06-25 06:46 | Day surgery (SDC) | payer OTHER, SELFPAY ==
[2022-06-21 10:08] VITALS: BMI 33.2
--- NOTE | 2022-06-21 10:28 | P.ANESASSM_ITS ---
Pre-Anesthetic Assessment Height/Weight: Height 1.7 m Weight 96.162 kg Operation Date: 06/25/22 08:20 Proposed Procedures p Cystolitholapaxy 75801,N21.0(Not Applicable) - Samir Stein MD Familial anesthetic complications: None Social No alcohol and No tobacco Exam alert, oriented x 3, clear to auscultation bilaterally and regular rate & rhythm Airway Mallampati: Class III Dentition: partials Pulmonary Chronic Obstructive Pulmonary Disease CV/HEM Atrial Fibrillation, Arrythmia and Hypertension pacemaker Patient went to ER in March with chest pains. EKG and pacer were evaluated. He followed up with Dr. Carroll in May and Glen ordered a stress test/perfusion test. This test has not been completed. None reported Hepatic None reported GI None reported Metabolic Diabetes Mellitus and Hyperlipidemia Neuropsych Transient Ischemic Attack (2-3 years ago) Anesthetic Plan ASA status: 3 Anesthesia: General Risk of > 500 ml blood loss (7ml/kg in children): No Medications/Allergies Home Medications Medication Instructions Recorded Confirmed Last Taken Type alendronate 70 mg tablet 70 mg PO Q7D 11/04/19 06/21/22 06/20/22 07:00 History apixaban 5 mg tablet 5 mg PO BID 11/04/19 06/21/22 06/20/22 07:00 History cholecalciferol (vitamin D3) 25 1,000 unit PO DAILY 11/04/19 06/21/22 06/20/22 18:00 History mcg (1,000 unit) capsule diltiazem HCl 120 mg 120 mg PO DAILY 11/04/19 06/21/22 06/21/22 07:00 History capsule,extended release 24 hr gabapentin 300 mg capsule 300 mg PO BEDTIME 11/04/19 06/21/22 06/21/22 07:00 History hydrochlorothiazide 25 mg tablet 25 mg PO DAILY 11/04/19 06/21/22 06/20/22 18:30 History metformin 500 mg tablet 250 mg PO BID 11/04/19 06/21/22 06/21/22 07:00 History rosuvastatin 20 mg tablet 10 mg PO DAILY 11/04/19 06/21/22 06/20/22 18:00 History tamsulosin 0.4 mg capsule 0.4 mg PO DAILY 11/04/19 06/21/22 06/20/22 22:30 History valsartan 160 mg tablet 80 mg PO DAILY 11/04/19 06/21/22 06/20/22 18:30 History benzoyl peroxide 2.5 % topical 1 applic topical TID PRN Acne 12/21/20 06/21/22 12/21/20 History cream hydrocortisone 2.5 % topical cream 1 applic topical BID PRN SCALING 12/21/20 06/21/22 12/21/20 History ON FACE OR EARS hydroxyzine HCl 10 mg tablet 10 mg PO DAILY 12/21/20 06/21/22 06/20/22 22:30 History sodium fluoride 1.1 %-potassium 1 applic dental DAILY 12/21/20 06/21/22 06/20/22 22:00 History nitrate 5 % dental paste metoprolol succinate 50 mg 100 mg PO DAILY 11/13/21 06/21/22 06/21/22 07:00 History tablet,extended release 24 hr donepezil 5 mg tablet 10 mg PO DAILY 05/14/22 06/21/22 06/20/22 22:30 History hydrocodone 5 mg-acetaminophen 325 1 tab PO Q8H PRN pain (scale score 06/11/22 06/21/22 06/20/22 19:00 Rx mg tablet 7-10) #10 tabs Allergies Allergy/AdvReac Type Severity Reaction Status Date / Time No Known Allergies Allergy Verified 06/21/22 09:52 [facility] Anesthesia Medical History Atrial fibrillation BPH NOS w ur obs/LUTS Diabetes mellitus Elevated PSA (~08/13/20) Erectile dysfunction History of nonmelanoma skin cancer Hyperlipidemia Hypertension 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 Ureteral stricture Surgical History H/O hernia repair H/O spinal fusion History of knee replacement Family History Other CAD (coronary artery disease) Cancer Diabetes Stroke Social History Smoking and tobacco status: former smoker Alcohol intake: never Marital status: Data Anesthesia Cardiac Studies: No Data to Display
[2022-06-21 10:43] LABS: Basophils # 0.1 10^3/uL (0.0-0.1); Basophils % 0.6 %; Eosinophils # 0.1 10^3/uL (0.0-0.8); Eosinophils % 0.8 %; Hematocrit 47.9 % (42.0-52.0); Hemoglobin 16.1 g/dL (11.7-16.6); Lymphocytes # 3.3 10^3/uL (0.8-4.8); Lymphocytes % 23.1 %; Mean Corpuscular HGB Conc 33.6 g/dL (30.0-36.0); Mean Corpuscular Hemoglobin 30.9 pg (28.0-34.0); Mean Corpuscular Volume 91.9 fl (80-94); Mean Platelet Volume 9.9 fL (7.4-10.4); Monocytes # 1.8 10^3/uL (0.2-0.9); Neutrophils # 8.32 10^3/uL (1.8-7.7); Nucleated Red Blood Cells % 0 %; Platelet Count 230 10^3/cmm (130-400); Red Blood Count 5.21 10^6/uL (4.1-5.3); Red Cell Distribution Width 13.7 % (12.1-15.1); White Blood Count 14.1 10^3/uL (4.0-10.0)
[2022-06-21 11:03] LABS: Anion Gap 12.6 (5-19); Blood Urea Nitrogen 23 mg/dL (8-23); Calcium 9.5 mg/dL (8.5-10.5); Carbon Dioxide 30 mmol/L (22-29); Chloride 99 mmol/L (98-107); Glucose 99 mg/dL (65-115); Osmolality Calculated 290 mOsm/kg (285-295); Potassium 3.6 mmol/L (3.5-5.1); Sodium 138 mmol/L (136-145)
--- NOTE | 2022-06-25 04:21 | P.HPUD_ITS ---
Surgery/Procedure H&P Update DATE OF PROCEDURE: June 25, 2022 DATE H&P PERFORMED: 06/19/22 H&P UPDATE INFORMATION: I have reviewed H&P completed within last 30 days, I have examined patient prior to procedure, No changes to prior documentation and H&P is in [facility] EMR on date indicated PLANNED PROCEDURE: Operation Date: 06/25/22 08:20 Proposed Procedures p Cystolitholapaxy 25723,N21.0(Not Applicable) - Samir Stein MD
[2022-06-25 07:00] VITALS: BP 161/89; PULSE 90; RESP 18; TEMP 36.6; O2SAT 95
[2022-06-25] MEDS: sodium chloride 0.9% 1,000 ML 30 ML IV (07:12)
[2022-06-25 07:13] LABS: Glucose Point of Care 101 mg/dL (70-110)
--- NOTE | 2022-06-25 07:26 | P.OP_ITS ---
Operative Report Date of procedure: June 25, 2022 Pre-op diagnosis: Bladder stone Post-op diagnosis: Bladder stone Procedure done: 1. Cystolitholapaxy >2.5 cm Implants: None Specimens removed/disposition: Stone fragments Pathology: Stone fragments Surgeon: Sarita Estimated blood loss: Minimal Urine output: Not measured Complications: None Findings: Anesthesia: General Condition: Stable Disposition: PACU Intraoperative findings: * Stone measuring about 2 and half to 3 cm in size. Easily fragmented 365 ?m thulium superpulse laser fiber. * All fragments removed. * Bladder in good shape at the completion of the procedure Brief History: Mr. Crawley is a very pleasant 77-year-old white male who recently presented to the clinic with complaints of lower urinary tract symptoms including hesitancy, intermittency, dysuria primarily at the completion of voiding. No retention, RUTIs blood in the urine. Outpatient cystoscopy revealed a stone measuring about 2 and half to 3 cm in size that would explain all of his symptoms. He is admitted now for cystolitholapaxy. Procedure: After routine preoperative evaluation examination and obtaining of informed consent he was taken to the operating suite on 06/25/2022 where general anesthesia was administered without difficulty after appropriate timeout was performed, SCDs confirmed to be functioning, preoperative antibiotics adm inistered, beta-ember protocol confirmed. Prepped and draped in usual sterile fashion in dorsolithotomy position paying careful attention to avoiding pressure points. 20 [place] Citizen cystoscope with 30 degree lens was introduced into the urethra meatus and advanced into the bladder without difficulty. The bladder was systematically examined. The stone was confirmed. The stone was then fragmented with a 365 ?m thulium superpulse laser fiber into small enough fragments that were then flushed from the bladder with an Ellik evacuator. Final inspection revealed no significant bladder trauma, no remaining stones and the procedure was completed. The bladder was trained. He tolerated procedure well without complications and was awakened in the operating room and returned to the recovery room in stable condition. PLANS: 1. Anticipate discharge from outpatient surgery today 2. Confirm adequate emptying before discharge 3. Follow-up in 6 months with [facility]. I encouraged him to call if his preoperative symptoms had not dramatically improved. 4. He is to continue the TAMSULOSIN daily dose
[2022-06-25] MEDS: levofloxacin-dextrose 5 % 500 MG/100 ML PREMIX 100 MG IV (07:35)
[2022-06-25 08:07] VITALS: BP 131/84; PULSE 71; RESP 20; TEMP 36.7; O2SAT 93
[2022-06-25 08:12] VITALS: BP 124/93; PULSE 70; RESP 18; O2SAT 93
[2022-06-25 08:17] VITALS: BP 125/77; PULSE 71; RESP 18; TEMP 36.7; O2SAT 95
[2022-06-25 08:25] VITALS: BP 116/80; PULSE 72; RESP 18; TEMP 36.7; O2SAT 95
--- NOTE | 2022-06-25 08:28 | P.ANESUD_ITS ---
Pre-Anesthetic Update Pre-Anesthetic Assessment: Date of Surgery/Procedure: 06/25/22 Preop Brionna gnosis: Stone Proposed Procedure: Operation Date: 06/25/22 08:20 Proposed Procedures p Cystolitholapaxy 12844,N21.0(Not Applicable) - Samir Stein MD Any changes to Pre-Anesthetic Assessment?: No Last Intake: Intake Last Liquid Date 06/24/22 Last Liquid Time 22:00 Last Solid Date 06/24/22 Last Solid Time 22:00 Vitals: Temperature 98.1 F 06/25/22 08:17 Temperature Source Temporal Artery S can 06/25/22 08:17 Pulse Rate 71 06/25/22 08:17 Respiratory Rate 18 06/25/22 08:17 Blood Pressure 125/77 06/25/22 08:17 Blood Pressure Samira n 93 06/25/22 08:17 Pulse Oximetry 95 06/25/22 08:17 Oxygen Delivery Me thod 06/25/22 08:17 Oxygen Flow Rate 6 06/25/22 08:07 Exam: Pre-Anes Outpt Exam: alert, oriented x 3, clear to auscultation bilaterally and regular rate & rhythm Cardiac Studies: No Data to Display
[2022-06-25 08:42] VITALS: BP 112/73; PULSE 69; RESP 18; TEMP 36.7; O2SAT 95
--- NOTE | 2022-06-25 15:19 | ANE.PACU2 ---
Inpatient post-anesthesia follow up: Airway intact: Yes Vital signs: Temperature 98.1 F Pulse Rate 69 Respiratory Rate 18 Blood Pressure 112/73 Pulse Oximetry 95 Oxygen Delivery Me thod Room Air Oxygen Flow Rate 6 Fraction of Inspir ed Oxygen Hydration adequate: Yes Nausea and vomiting: No Pain level: 2 Mental status: Baseline
[2022-06-30 11:17] LABS: Stone Source BLADDER
== END 2022-06-25 08:52 | disposition home or self-care (01) ==
PROVIDERS: Anesthesiology; PCP Family Medicine; Visit Provider Urology
PROC: 0TCB8ZZ Extirpation of Matter from Bladder, Via Natural or Artificial Opening Endoscopic (ICD-10-PCS; CPT 52318; principal; 2022-06-25 08:10)
DX: N21.0 Calculus in bladder (principal); J44.9 Chronic obstructive pulmonary disease, unspecified; I48.91 Unspecified atrial fibrillation; I10 Essential (primary) hypertension; Z95.0 Presence of cardiac pacemaker; E11.9 Type 2 diabetes mellitus without complications; E78.5 Hyperlipidemia, unspecified; Z86.73 Personal history of transient ischemic attack (TIA), and cerebral infarction without residual deficits; N40.1 Benign prostatic hyperplasia with lower urinary tract symptoms; N13.8 Other obstructive and reflux uropathy; Z87.891 Personal history of nicotine dependence
CPT/HCPCS: 52318; 36416; 80048; 82365; 82962; 85025; 88300; 88305; J1100; J1956; J2405; J2704; J3010; J7030

== ENCOUNTER 2022-08-10 10:45 | Emergency (ER) | payer OTHER, SELFPAY ==
[2022-08-10 11:04] VITALS: TEMP 37.2; BMI 32.8
--- NOTE | 2022-08-10 11:13 | XR_ITS ---
WS: [id number] Portable AP upright chest, 08/10/2022 Clinical Data: cough Comparison: Portable chest, 12/21/2020 Findings: No nodules, masses or effusions are seen. The heart is normal. The pulmonary vascularity is not increased. No pneumonia or pneumothorax is seen. The aortic arch and descending thoracic aorta s how calcification and tortuosity. There is a slight dextroscoliosis. There is a permanent cardiac pac emaker unchanged. XR/XR chest 1V portable 10015 Impression: Atherosclerosis and permanent cardiac pacemaker.
--- NOTE | 2022-08-10 11:20 | ECG_ITS ---
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 Measurements Intervals [place] Rate: 66 P: 59 MN: 198 QRS: -6 QRSD: 101 T: 31 QT: 379 QTc: 398 Interpretive Statements SINUS RHYTHM INCOMPLETE RIGHT BUNDLE BRANCH BLOCK POSSIBLE ANTERIOR MYOCARDIAL INFARCTION , OF INDETERMINATE AGE Compared to ECG 03/27/2022 21:12:50 Incomplete right bundle-branch block now present Myocardial infarct finding now present Atrial-paced complex(es) or rhythm no longer present Ventricular-paced complex(es) or rhythm no longer present Electronically Signed On 08-10-2022 16:52:10 LEARNING AND DEVELOPMENT CONSULTANT by Rahel Issa M.D. [id number]
--- NOTE | 2022-08-10 12:04 | W.ED.URI ---
Documented by User: BELKIS Bush-C 08/10/22 12:17 HPI - URI/Sore Throat General: Chief Complaint: Upper Respiratory Infection Stated Complaint: congestion Time Seen by Provider: 08/10/22 10:50 History of Present Illness: Patient reports that approximately 10 days ago he started having nasal congestion and drainage worse on the left side nostril. He reports that he never had a fever or chills. He reports that he had a lot of postnasal drainage and was having a cough but he was coughing up clear sputum. He reports that this is persisted and now today his sputum is yellow looking and since he has COPD he wants to make sure that this is not worsening. He did take a home COVID test today which she said was negative. Associated symptoms: Reports nasal congestion; Deny abdominal pain, chills, chest pain, fever(s), nausea or vomiting Review of Systems Const: Denies: fever(s), chills or body aches ENMT: Reports: throat pain, nasal discharge, nasal congestion and post nasal drip Card: Reports: other (Some chest tightness with deep inspiration); Denies: chest pain, palpitations or irregular heart rhythm Resp: Reports: dyspnea (Some shortness of breath with activity) and productive cough (Yellow sputum) GI: Denies: abdominal pain, nausea or vomiting : Denies: flank pain, difficulty urinating, dysuria, urinary frequency, urinary urgency or urinary hesitancy PFSH ED PFSH: Medical History Atrial fibrillation BPH NOS w ur obs/LUTS Diabetes mellitus Elevated PSA (~08/13/20) Erectile dysfunction History of nonmelanoma skin cancer Hyperlipidemia Hypertension 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 Ureteral stricture Surgical History H/O hernia repair H/O spinal fusion History of knee replacement Family History Other CAD (coronary artery disease) Cancer Diabetes Stroke Social History Smoking and tobacco status: former smoker Alcohol intake: never Marital status: Physical Exam Const: COMMON NORMALS: no acute distress, patient oriented x3 and alert HENMT: FACE & SINUS: sinus tenderness maxillary NOSE: Normal nares present and Abnormal mucous membranes and turbinates present boggy TYMPANIC MEMBRANE: TM normal on the right and TM abnormal TM laterality: left Details: bulging and fluid behind TM THROAT: uvula midline and postnasal drainage Resp: COMMON NORMALS: normal respiratory effort, No use of accessory muscles and clear to auscultation bilaterally AUSCULTATION: clear to auscultation bilaterally Cardio: COMMON NORMALS: regular rate and regular rhythm RATE: regular rate RHYTHM: regular rhythm OTHER: Pacemaker Neuro: COMMON NORMALS: patient oriented x3, moves all extremities and no focal motor deficits SENSORIUM/ORIENTATION: Yes alert Course Vital Signs: Vital signs: Vital Signs Temperature 98.9 F 08/10/22 11:04 Pulse Rate 70 08/10/22 13:01 Respiratory Rate 16 08/10/22 13:01 Blood Pressure 128/81 08/10/22 13:01 Pulse Oximetry 95 08/10/22 13:01 MDM - URI/Sore Throat Medical Decision Making Consider differentials upper respiratory infection, pneumonia, COPD exacerbation, influenza, COVID-19 Given hat this has been going on for 10 days and patient is not febrile did not swab patient for influenza and he reports a negative COVID-19 home test. Chest x-ray does not show any acute cardiopulmonary changes. EKG done and reviewed with Dr. Rodriguez no acute changes. Patient physical exam is benign. Respirations are even and unlabored. His SPO2 is 97% on room air he is in no acute distress. Patient has had ongoing nasal congestion with postnasal drainage he has some pressure feeling behind his ears with fluid behind his left TM. We will go ahead and treat patient to cover for sinusitis, however this would also cover for an early developing pneumonia and this chronic COPD patient. Advised him of possible benefits and side effects of medications provided today. Follow-up with primary care provider next week. Return to the ER for new or worsening symptoms Lab Data Radiology Impressions Chest X-Ray 08/10/22 11:13 Impression: Atherosclerosis and permanent cardiac pacemaker. Discharge Plan Discharge Patient Disposition: Home Clinical Impression: Acute maxillary sinusitis Condition: Stable Prescriptions: New amoxicillin 875 mg tablet 875 mg PO BID 10 Days Qty: 20 0RF prednisone 20 mg tablet 40 mg PO DAILY 5 Days Qty: 10 0RF albuterol sulfate 90 mcg/actuation HFA aerosol inhaler 2 inh inhalation Q6H PRN (Reason: shortness of breath or wheezing) Qty: 6.7 0RF No Action gabapentin 300 mg capsule 300 mg PO BEDTIME alendronate [Fosamax] 70 mg tablet 70 mg PO Q7D Rx Instructions: TAKE ON SATURDAY. apixaban 5 mg tablet 5 mg PO BID cholecalciferol (vitamin D3) 25 mcg (1,000 unit) capsule 1,000 unit PO DAILY rosuvastatin 20 mg tablet 10 mg PO DAILY tamsulosin 0.4 mg capsule 0.4 mg PO DAILY Rx Instructions: TAKE APPROXIMATELY 30 MINUTES AFTER THE SAME MEAL EACH DAY. hydrochlorothiazide 25 mg tablet 25 mg PO DAILY valsartan 160 mg tablet 80 mg PO DAILY Rx Instructions: TAKE 1/2 TABLET DAILY metformin 500 mg tablet 250 mg PO BID Rx Instructions: TAKE 1/2 TABLET 2 TIMES DAILY diltiazem HCl [Cardizem CD] 120 mg capsule,extended release 24hr 120 mg PO DAILY metoprolol succinate 50 mg tablet extended release 24 hr 100 mg PO DAILY donepezil 5 mg tablet 10 mg PO DAILY hydrocortisone 2.5 % Cream 1 applic TOPICAL BID PRN (Reason: SCALING ON FACE OR EARS) hydroxyzine HCl 10 mg Tablet 10 mg PO DAILY sodium fluoride-pot nitrate 1.1-5 % Paste 1 applic DENTAL DAILY Rx Instructions: USE ONCE DAILY TOOTHPASTE benzoyl peroxide 2.5 % Cream 1 applic TOPICAL TID PRN (Reason: Acne) hydrocodone-acetaminophen 5-325 mg tablet 1 tab PO Q8H PRN (Reason: pain (scale score 7-10)) Qty: 10 0RF Discharge Orders: Discharge ED (Routine); Ordered 08/10/22 Ordered By: Loretta Almonte Referrals: Blanche Nelson MD [Primary Care Provider] - Discharge Diet: Usual diet Discharge Activity: Increase activity as tolerated Patient Instructions: Sinusitis (ED) Activity Restrictions/Additional Instructions: Take medications as prescribed. You may use the albuterol inhaler every 4-6 hours as needed for shortness of breath or wheezing. I recommend sinus rinses and gargling with warm salt water. Follow-up with your primary care provider next week. Return to the ER for any new or worsening symptoms. Coding Level of Care Code ED Level Vial Setter for g Fwd Exam Detailed Documented by User: Pastor Rodriguez DO 08/10/22 16:47 HPI - URI/Sore Throat General: Chief Complaint: Upper Respiratory Infection Stated Complaint: congestion Time Seen by Provider: 08/10/22 10:50 PFSH ED PFSH: Medical History Atrial fibrillation BPH NOS w ur obs/LUTS Diabetes mellitus Elevated PSA (~08/13/20) Erectile dysfunction History of nonmelanoma skin cancer Hyperlipidemia Hypertension 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 Ureteral stricture Surgical History H/O hernia repair H/O spinal fusion History of knee replacement Family History Other CAD (coronary artery disease) Cancer Diabetes Stroke Social History Smoking and tobacco status: former smoker Alcohol intake: never Marital status: Course Vital Signs: Vital signs: Vital Signs Temperature 98.9 F 08/10/22 11:04 Pulse Rate 70 08/10/22 13:01 Respiratory Rate 16 08/10/22 13:01 Blood Pressure 128/81 08/10/22 13:01 Pulse Oximetry 95 08/10/22 13:01 MDM - URI/Sore Throat Medical Decision Making Consider differentials upper respiratory infection, pneumonia, COPD exacerbation, influenza, COVID-19 Given hat this has been going on for 10 days and patient is not febrile did not swab patient for influenza and he reports a negative COVID-19 home test. Chest x-ray does not show any acute cardiopulmonary changes. EKG done and reviewed with Dr. Rodriguez no acute changes. Patient physical exam is benign. Respirations are even and unlabored. His SPO2 is 97% on room air he is in no acute distress. Patient has had ongoing nasal congestion with postnasal drainage he has some pressure feeling behind his ears with fluid behind his left TM. We will go ahead and treat patient to cover for sinusitis, however this would also cover for an early developing pneumonia and this chronic COPD patient. Advised him of possible benefits and side effects of medications provided today. Follow-up with primary care provider next week. Return to the ER for new or worsening symptoms Chart reviewed and patient discussed with midlevel. Agree with assessment and plan. Lab Data Radiology Impressions Chest X-Ray 08/10/22 11:13 Impression: Atherosclerosis and permanent cardiac pacemaker. Discharge Plan Discharge Patient Disposition: Home Clinical Impression: Acute maxillary sinusitis Condition: Stable Prescriptions: New amoxicillin 875 mg tablet 875 mg PO BID 10 Days Qty: 20 0RF prednisone 20 mg tablet 40 mg PO DAILY 5 Days Qty: 10 0RF albuterol sulfate 90 mcg/actuation HFA aerosol inhaler 2 inh inhalation Q6H PRN (Reason: shortness of breath or wheezing) Qty: 6.7 0RF No Action gabapentin 300 mg capsule 300 mg PO BEDTIME alendronate [Fosamax] 70 mg tablet 70 mg PO Q7D Rx Instructions: TAKE ON SATURDAY. apixaban 5 mg tablet 5 mg PO BID cholecalciferol (vitamin D3) 25 mcg (1,000 unit) capsule 1,000 unit PO DAILY rosuvastatin 20 mg tablet 10 mg PO DAILY tamsulosin 0.4 mg capsule 0.4 mg PO DAILY Rx Instructions: TAKE APPROXIMATELY 30 MINUTES AFTER THE SAME MEAL EACH DAY. hydrochlorothiazide 25 mg tablet 25 mg PO DAILY valsartan 160 mg tablet 80 mg PO DAILY Rx Instructions: TAKE 1/2 TABLET DAILY metformin 500 mg tablet 250 mg PO BID Rx Instructions: TAKE 1/2 TABLET 2 TIMES DAILY diltiazem HCl [Cardizem CD] 120 mg capsule,extended release 24hr 120 mg PO DAILY metoprolol succinate 50 mg tablet extended release 24 hr 100 mg PO DAILY donepezil 5 mg tablet 10 mg PO DAILY hydrocortisone 2.5 % Cream 1 applic TOPICAL BID PRN (Reason: SCALING ON FACE OR EARS) hydroxyzine HCl 10 mg Tablet 10 mg PO DAILY sodium fluoride-pot nitrate 1.1-5 % Paste 1 applic DENTAL DAILY Rx Instructions: USE ONCE DAILY TOOTHPASTE benzoyl peroxide 2.5 % Cream 1 applic TOPICAL TID PRN (Reason: Acne) hydrocodone-acetaminophen 5-325 mg tablet 1 tab PO Q8H PRN (Reason: pain (scale score 7-10)) Qty: 10 0RF Discharge Orders: Discharge ED (Routine); Ordered 08/10/22 Ordered By: Loretta Almonte Referrals: Blanche Nelson MD [Primary Care Provider] - Discharge Diet: Usual diet Discharge Activity: Increase activity as tolerated Patient Instructions: Sinusitis (ED) Activity Restrictions/Additional Instructions: Take medications as prescribed. You may use the albuterol inhaler every 4-6 hours as needed for shortness of breath or wheezing. I recommend sinus rinses and gargling with warm salt water. Follow-up with your primary care provider next week. Return to the ER for any new or worsening symptoms. Coding Level of Care Code ED Level Vial Setter for Pily Fwd Exam Detailed
[2022-08-10 13:01] VITALS: BP 128/81; PULSE 70; RESP 16; O2SAT 95
== END 2022-08-10 13:02 | disposition home or self-care (01) ==
PROVIDERS: Emergency Provider Nurse Practitioner Family; PCP Family Medicine
DX: J01.00 Acute maxillary sinusitis, unspecified (principal); Z79.84 Long term (current) use of oral hypoglycemic drugs; Z87.891 Personal history of nicotine dependence; E11.9 Type 2 diabetes mellitus without complications; E78.5 Hyperlipidemia, unspecified; I10 Essential (primary) hypertension; Z95.0 Presence of cardiac pacemaker
CPT/HCPCS: 71045; 93005; 99284

== ENCOUNTER → 2022-08-23 08:19 | Outpatient (BNVA) | payer OTHER, SELFPAY | PROVIDERS: PCP Family Medicine; Visit Provider Internal Medicine Cardiovascular Disease | DX: Z45.010 Encounter for checking and testing of cardiac pacemaker pulse generator [battery] (principal) | CPT/HCPCS: 93296 ==

== ENCOUNTER 2022-09-14 08:07 | Outpatient (CLI) | payer OTHER, SELFPAY ==
--- NOTE | 2022-09-14 | ECG_ITS ---
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 Interpretive Statements NAME OF STUDY: LEXISCAN SESTAMIBI STRESS TEST INDICATION: Chest Pain, PROCEDURE: At the baseline, the EKG revealed normal sinus rhythm with a poor R wave progression. The baseline heart was 2 5 bpm with a blood pressue of 142/82 mm of Hg Lexiscan was infused over a period of 20 seconds. A total of 0.4 milligrams of Lexiscan was infused. The stress phase was continued for a total of 5 minutes. Heart rate at the end of the stress phase was 63 bpm with a blood pressure 111/63 mm of Hg. The EKG at the peak infusion revealed no significant changes. Episodes of A sensed, V paced rhythm were noted during the stress and recovery phase Sestamibi was injected 20 seconds after the Lexiscan infusion. Heart rate at the end of the recovery phase was 63 bpm with a blood pressure of 127/64 mm of Hg. CONCLUSION: 1. No significant EKG changes with the LexiScan infusion 2. No LexiScan induced chest pain or cardiac arrhythmia 3. Normal blood pressure and heart rate response 4. Sestamibi/sestamibi perfusion scan pending; see separate report. Electronically Signed On 09-15-2022 14:20:46 QUALITY ASSURANCE ANALYST by Francisco Carroll M.D. [id number]
[2022-09-14 08:22] VITALS: BMI 32.8
--- NOTE | 2022-09-14 08:22 | NMCV_ITS ---
NM kiki perf SPECT r/s* [id number] Roverto Crawley Age: 77 Gender: M : 1945 Exam Date: 09/14/2022 08:52 Ordering Phys: Francisco Carroll MD ([email or web address]) Technologist: JEFFREY Cabrera Exam Location: [facility] Indications: CHEST PAIN STRESS TEST Please see separate stress test report in [facility] for full findings IMAGE PROTOCOL Rest/Stress 1 Lexiscan Day Radiopharmaceutical Dose (mCi) Administration Site Administered by Rest: Tc-99m 10.7 IV JEFFREY Cabrera Sestamibi Stress:Tc-99m 33.0 IV JEFFREY Nam Sestamibi Rest: 14-Sep-2022 60 Discovery 630 Stress: 14-Sep-2022 30 Discovery 630 0.4mg Lexiscan. Images obtained in supine and prone position. SPECT RESULTS Technical Quality: Excellent Raw Data Analysis: Normal Image Corrections: No attenuation or motion correction applied Summed Stress Score: 10 Summed Rest Score: 8 Summed Difference Score: 4 PERFUSION FINDINGS Moderate area of moderately decreased tracer uptake was noted in the mid and apical inferior, mid inferolateral, mid inferoseptal, apical lateral and mid anteroseptal regions. Subtle area of reversibility was noted in the inferolateral, apical and inferoseptal regions. FUNCTIONAL RESULTS (calculated via Gated SPECT) Stress Image LV EF (%): 76 Stress EDV (mL):86 TID: 1.04 Stress ESV (mL):21 FUNCTIONAL FINDINGS: Segmental wall motion analysis revealing no gross wall motion abnormalities Transient ischemic dilatation ratio was within normal limits IMPRESSIONS 1. Myocardial perfusion imaging revealing moderate area of moderately decreased persistent decreased tracer uptake in the inferior, inferolateral, inferoseptal and apical regions. Subtle area of reversibility was noted in the inferolateral, apical and inferoseptal regions suggesting myocardial scarring with possible bashir-infarction ischemia in the distribution of the left circumflex artery/right coronary artery, with the supine imaging. These findings were inconsistent with the prone imaging. The reliability of this finding is questionable. 2. Normal LV ejection fraction of 76%. 3. LV wall motion analysis revealing no gross wall motion abnormalities. 4. Normal LV volume Clinical correlation is recommended. No similar previous studies are available for comparison Dr Francisco Carroll MD FACC (Electronically Signed) Final Date: 14 September 2022 15:19 S
[2022-09-14] MEDS: regadenoson 0.4 Mg/5 ml Syringe IVP (09:39)
[2022-09-14 09:52] VITALS: BP 127/64; PULSE 62
== END 2022-09-14 08:08 | disposition home or self-care (01) ==
LOC: CDL 08:08
PROVIDERS: PCP Family Medicine; Visit Provider Internal Medicine Cardiovascular Disease
DX: R07.9 Chest pain, unspecified (principal)
CPT/HCPCS: 36415; 78452; 93017; 96374; A9500; J2785

== ENCOUNTER → 2022-11-19 13:30 | Outpatient (BNVA) | payer OTHER, SELFPAY | PROVIDERS: PCP Family Medicine; Visit Provider Internal Medicine Cardiovascular Disease | DX: R94.39 Abnormal result of other cardiovascular function study (principal); I48.11 Longstanding persistent atrial fibrillation; I10 Essential (primary) hypertension; E78.5 Hyperlipidemia, unspecified; Z95.0 Presence of cardiac pacemaker; Z87.891 Personal history of nicotine dependence; Z79.01 Long term (current) use of anticoagulants | CPT/HCPCS: 99214 ==

== ENCOUNTER 2022-12-04 05:54 | Outpatient (CLI) | payer OTHER, SELFPAY ==
[2022-12-04] VITALS (13 sets, daily range): BP systolic 107–155; BP diastolic 60–95; PULSE 60–65; RESP 16–18; TEMP 36.3; O2SAT 93–95; BMI 33.0
[2022-12-04] MEDS: diphenhydrAMINE 50 mg Capsule PO (06:13)
[2022-12-04] MEDS: aspirin 325 mg Tablet PO ×2 (06:13→10:32)
[2022-12-04 06:31] LABS: Basophils % 0.4 %; Eosinophils # 0.1 10^3/uL (0.0-0.8); Eosinophils % 1.5 %; Hematocrit 43.7 % (42.0-52.0); Hemoglobin 14.6 g/dL (11.7-16.6); Lymphocytes # 2.3 10^3/uL (0.8-4.8); Lymphocytes % 29.7 %; Mean Corpuscular HGB Conc 33.4 g/dL (30.0-36.0); Mean Corpuscular Hemoglobin 30.4 pg (28.0-34.0); Mean Platelet Volume 9.7 fL (7.4-10.4); Monocytes % 12.4 %; Neutrophils # 4.36 10^3/uL (1.8-7.7); Neutrophils % 55.6 %; Nucleated Red Blood Cells % 0 %; Platelet Count 196 10^3/cmm (130-400); Red Cell Distribution Width 13.6 % (12.1-15.1); White Blood Count 7.8 10^3/uL (4.0-10.0)
[2022-12-04 06:31] LABS: Glucose Point of Care 93 mg/dL (70-110)
[2022-12-04 06:56] LABS: Anion Gap 14.7 (5-19); Blood Urea Nitrogen 16 mg/dL (8-23); Calcium 9.6 mg/dL (8.5-10.5); Carbon Dioxide 27 mmol/L (22-29); Chloride 104 mmol/L (98-107); Glucose 103 mg/dL (65-115); Osmolality Calculated 295 mOsm/kg (285-295); Potassium 3.7 mmol/L (3.5-5.1); Sodium 142 mmol/L (136-145)
--- NOTE | 2022-12-04 06:58 | P.HPUD_ITS ---
Surgery/Procedure H&P Update DATE OF PROCEDURE: December 04, 2022 DATE H&P PERFORMED: 11/19/22 H&P UPDATE INFORMATION: I have reviewed H&P completed within last 30 days, I have examined patient prior to procedure and No changes to prior documentation PREOP DIAGNOSIS: ASHD PRIMARY INDICATION FOR PROCEDURE: Chest pain/abnormal Myocardial perfusion imaging/atrial fibrillation/hypertension/dyslipidemia PLANNED PROCEDURE: Operation Date: 12/04/22 07:00 Proposed Procedures p [facility] w/-w/o [id number],R94.39(Left) - Francisco Carroll MD PATIENT REASSESSED PRIOR TO SEDATION, WITH NO CHANGE NOTED: Yes PHYSICAL EXAM: alert, oriented x 3, clear to auscultation bilaterally and regula r rate & rhythm AIRWAY EVAL/ANESTHESIA PLAN: normal airway, see other exam findings, ASA III, Monitored Anesthesia, Local Anesthesia, Risks, benefits & alternatives of sedation and/or procedure discussed and Patient agrees to continue as planned
--- NOTE | 2022-12-04 07:00 | XACV_ITS ---
Exam Room: 2 Ht: 170 cm Wt: 96 kg BSA: 2.16 m2 Gender: Male : 1945 Any Known Allergies: No known allergies Exam Priority: Routine Procedure(s): Procedure Description: Diagnostic procedure Procedure Description: PCI procedure Procedure Description: Left Heart Catheterization Procedure Description: Left ventriculography Procedure Description: PTCA Procedure Description: Coronary Angiography [place] MASTERS; Diagnostic Cath Status: Elective Diagnostic Findings * The left main is a medium caliber vessel with no significant stenotic lesions. * The left anterior descending artery is a medium caliber vessel which was found to have mild diffuse intimal irregularities with no significant stenotic lesions. The artery appears to wrap around the LV apex minimally. It gives of a high diagonal branch which was found to have around 50% ostial narrowing. At the mid segment of this artery, there was a 80% segmental stenosis. The distal artery was found to have minimal intimal irregularities. * The left circumflex artery is a medium caliber vessel which was found to have minimal intimal irregularities proximally. The mid circumflex artery, right after the first obtuse marginal branch was found to have around 50% eccentric tubular narrowing. The distal artery appears to trifurcate and was found to have diffuse intimal irregularities with no significant stenotic lesions.. * The right coronary artery is a medium caliber vessel which there was found to have minimal intimal irregularities in the proximal and mid segment. No significant stenotic lesions were noted. PCI Status: Elective PCI LVEF Assessed: Yes PCI Indication: New Onset Angina <= 2 months Interventional Findings * Guide support was relatively poor. The first diagonal underwent plain old balloon angioplasty in the mid portion as well as the ostium. An adequate angiographic result was obtained. Stenting was not performed. Decision for PCI with Surgical Consult: No PCI for Multi-vessel Disease: No Conclusions 1. 77-year-old white male with multiple risk factors for coronary artery disease, presenting with increasing episodes of chest pain. He had a Myocardial perfusion imaging which revealed areas of fixed defects with very small areas of reversible defect. In view of the patient's ongoing symptoms and risk factors, in order to further evaluate the coronary status, a cardiac catheterization was recommended. Patient underwent left heart catheterization with left and right coronary angiogram and LV angiogram today. The findings are as follows.. 2. 1. Normal left main. 2. Mild diffuse intimal irregularities in the left and descending artery. High-grade lesion in the mid segment of the first diagonal branch. It appears to be a small to medium caliber vessel. 3. Moderate eccentric narrowing in the mid circumflex artery. 4. Mild diffuse disease in the other vessels. 5. Normal LV ejection fraction of 65%. LVEDP of 22 mmHg. 3. I reviewed the cardiac catheterization data with the Dr. Schmid. Considering the patient's ongoing symptoms it was thought to be appropriate to consider PCI of the diagonal artery lesion. At this point, Dr. Schmid took over further management of this patient. Diagnostic RX Recommendation: PCI w/o planned CABG Ventriculography Ejection Fraction: 65.0 % LV EDP: 22 mmHg Left Ventriculography Findings: * The LV gram was performed in the SALMON projection. The LV cavity appears to be of normal size. There is mild hypokinesia of the apical inferior wall segment. No filling defects are noted. No severe mitral valve prolapse. Mild mitral regurgitation was noted. The LVEDP was 22 mmHg. The LV ejection fraction was around 65%. Pressures Phase:Rest AO : 90 / 64 ( 78 ) @ 8:34:00 AM 100 / 56 ( 75 ) @ 8:36:00 AM 120 / 56 ( 84 ) @ 8:45:00 AM 120 / 56 ( 83 ) @ 8:45:00 AM 130 / 58 ( 83 ) @ 9:31:00 AM 97 / 63 ( 83 ) @ 9:45:00 AM LV : 134 / 0 / 22 @ 8:42:00 AM 119 / -7 / 15 @ 8:43:00 AM 121 / -8 / 12 @ 8:45:00 AM Valves Phase:DefaultPhase AV : 0.0 @ 8:56:10 AM 0.0 @ 8:56:10 AM AV Mean Gradient: 0.0 @ 8:56:10 AM Clinical Evaluation EBL: 5mL-10mL Procedural Details Procedure Consent Obtained. Admit Source: Out Patient. Pre-Procedure Time Out. Identified patient by full name and date of as verbalized by the patient/guarantor. Does the consent match the physician's order: Yes. Accurate & Complete Informed Consent: Yes. Inpatient/Outpatient History & Physical on Chart: Yes. If H&P is completed, is and addenduem needed: No; If yes, is the addendum complete: N/A. Visualize and Verify Site with Patient/Guarantor: N/A. Relevant Radiology Images available: Yes. The risks, benefits, and alternatives of sedation and/or procedure were discussed by physician. The patient agrees to continue. Procedure started. [facility] Clinical Fraility Score: 3: Managing Well. 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 Chest Pain Symptom Assessment: Typical Angina Symptoms. Correct patient, site and procedure confirmed by cath team. Current diagnosis: Chest Pain, Abnormal stress test. PERRLA. Strong, equal hand production potter bilaterally. Lungs clear x 5 lobes. IV Site on Arrival: 20 gauge in the right forearm. IV Fluids: 0.9% NaCl at 75ml/hr. 0 mL infused prior to equipment operator/laborer. Pre Procedural Pulses: bilateral radial was 3+. Pre Procedural Pulses: right dorsalis pedis was 1+. Pre Procedural Pulses: right posterior tibial was 1+. Pre Procedural Pulses: left posterior tibial was Doppled. Pre Procedural Pulses: left dorsalis pedis was Doppled. Oxygen started at 2liters/min via nasal canula. right radial was prepped with chloroprep then draped in the usual sterile fashion. right groin was prepped with chloroprep then draped in the usual sterile fashion. Physician notified. Baseline sample Acquired. HR: 90 BPM. Physician arrived. Physician scrubbed in. Immediate Pre-Procedure Time Out. Correct Patient: Yes; Correct Procedure: Yes; Correct Site: Yes; Correct Patient Position: Yes; Correct Supplies: Yes; Dried Flammable Prep: Yes; Blood Products Available: No;. Lidocaine 1% infiltrated to the right radial. Arterial access obtained. A 5 puerto rican Eliel catheter in over wire. Multiple views taken of left coronary artery. Catheter redirected to the RCA. Catheter removed over the exchange wire. A 5 puerto rican JR4 catheter in over wire. Multiple views taken of right coronary artery. Catheter removed over the exchange wire. A 5 pu[place]ican Angled Pig catheter in over wire. EDP Sample taken: LV 134/-1,22; HR: 67 BPM; SpO2: 92%. LV gram performed in SALMON @ 10 mL/second for a total of 30 mL. EDP Sample taken: LV 119/-8,15; HR: 63 BPM; SpO2: 94%. Pullback taken: LV 121/-9,12; AO 120/56(84); Mean: 0mmHg, Peak to Peak: 0mmHg, SEP: 14sec/min; HR: 66 BPM; SpO2: 94%. Dr. Schmid arrived to lab to review cine films. Physician scrubbed out. Dr. Schmid called back to lab to review cine films. Patient reprepped and redraped. Inventory: second radial pack, heparinized saline bags X 2, exchange wire, hand control. Dr. Schmid scrubbed in to perform intervention. 6fr radial sheath exchanged for new 6fr femoral sheath over access wire into right radial artery. 6 puerto [place]ican CLS 3 guide catheter was inserted over the wire. [place] guidewire was advanced through the guide catheter to lesion in the diaganol. Guidewire advanced across lesion. Balloon inserted to lesion in the mid 1st diaganol. Inflation number : 1 A AB MINI TREK 2.00X12 RX BALLOON was prepped and advanced across the 1st Diag , then inflated to 8 LAUREN for 0:32 seconds. Inflation number: 2 The AB MINI TREK 2.00X12 RX BALLOON was reinflated across the 1st Diag, to 8 LAUREN for 0:30 seconds. Inflation number: 3 The AB MINI TREK 2.00X12 RX BALLOON was reinflated across the 1st Diag, to 8 LAUREN for 0:31 seconds. Angiography performed, checking results. Balloon out. Guide catheter out. Post Procedure: Pulses reassessed and unchanged. PERRLA. Strong, equal hand production potter bilaterally. No VTE prophylaxis required. A TR Band was successful obtaining hemostatsis at the Right Radial artery insertion site. Post-op diagnosis: CAD. Complications: None. Estimated blood loss: 5mL-10mL. Responsiveness - Normal response to verbal stimuli; alert and oriented, PERRLA. Airway - Unaffected, no intervention required; spontaneous ventilation. Circulation: W/N/L, pulses unchanged. Nausea/Vomiting: No. Procedure completed. Medication's Wasted: Lidocaine 1% = 2 mL. Medication's Wasted: Nitro = 49.8 mg. Medication's Wasted: Heparin = 2000 units. Medication's Wasted: Other = Fentanyl 75 mcg. Medication's Wasted: Other = Versed 1 mg. Total IV fluids: 75 mL. Patient transferred by wheelchair to 1st floor. Vital chart was stopped. Access Site Site: Right Radial artery Sheath Size: 6 Fr Hemostasis Method: TR Band Hemostasis Success: Successful Procedure Medications Start: 7:16 AM Stop: 7:16 AM Medication: Versed 1 mg and Fentanyl 25 mcg Route: I.V. Start: 7:16 AM Stop: 7:16 AM Medication: Fentanyl Amount: 25 mcg Route: I.V. Start: 7:24 AM Stop: 7:24 AM Medication: Versed Amount: 1 mg Route: I.V. Start: 7:25 AM Stop: 7:25 AM Medication: Verapamil Amount: 5 mg Route: I.A. Start: 7:25 AM Stop: 7:25 AM Medication: Nitrogylcerin Amount: 200 mcg Route: I.A. Start: 7:36 AM Stop: 7:36 AM Medication: Heparin Amount: 5000 units Route: I.V. Start: 8:16 AM Stop: 8:16 AM Medication: Versed 1 mg and Fentanyl 25 mcg Route: I.V. Start: 8:27 AM Stop: 8:27 AM Medication: Versed Amount: 1 mg Route: I.V. Start: 8:45 AM Stop: 8:45 AM Medication: Versed Amount: 1 mg Route: I.V. I, the attending physician, have reviewed and verified all procedure medications. Yes, all medications given per verbal order History/Risk Factors Hypertension: Yes Dyslipidemia: Yes Peripheral Arterial Disease (PAD): No Myocardial Infarction (DE): No Obesity: No Renal Disease: No Tobacco Use: Former Prior Interventions PCI: No CABG: No Valve Surgery: No Report Signatures Diagnostic Workflow Finalized by Dr Francisco Carroll MD [facility] on 12/05/2022 01:30 AM Interventional Workflow Finalized by Dr. Martell Schmid MD on 12/04/2022 09:24 AM
[2022-12-04] MEDS: tamsulosin 0.4 mg Capsule PO (10:33)
[2022-12-04] MEDS: atorvastatin 40 mg Tablet PO (10:33)
[2022-12-04] MEDS: losartan 50 mg Tablet 25 MG PO (10:33)
[2022-12-04] MEDS: metoprolol succinate ER (24 HR) 50 mg Tablet 100 MG PO (10:34)
[2022-12-04] MEDS: dilTIAZem ER (24HR) 120 mg Capsule PO (10:34)
[2022-12-04] MEDS: hydroCHLOROthiazide 25 mg Tablet PO (10:34)
[2022-12-04] MEDS: donepezil 5 MG Tablet 10 MG PO (10:36)
[2022-12-04] MEDS: sodium chloride 0.9% 1,000 ML 100 ML IV (10:41)
[2022-12-04] MEDS: cyanocobalamin 1,000 mcg Tablet 1000 MCG PO (10:47)
--- NOTE | 2022-12-04 14:31 | PC.NURSE ---
TR band removed at 13:52. After TR band removal, small soft bruising approximately 3cm wide noted. Proximal to puncture site. light pressure held.
--- NOTE | 2022-12-04 19:06 | PC.NURSE ---
Received bedside report from MORGAN Barber. Patient resting in bed watching tv. S/p C with right radial access. Dressing in place remains c,d,i with no s/s of bleeding or hematoma formation observed. Patient denies pain to site. Discussed plan for tonight. Patient verbalized complete understanding. No distress observed. Will continue to monitor.
[2022-12-04] MEDS: gabapentin 300 mg Capsule PO (20:28)
[2022-12-05] VITALS (7 sets, daily range): BP systolic 129–142; BP diastolic 76–91; PULSE 60–70; RESP 16–22; TEMP 36.8; O2SAT 90–97
--- NOTE | 2022-12-05 08:40 | PM.PN ---
Subjective Subjective: This patient was admitted to the hospital the yesterday following the cardiac catheterization and PCI. His coronary angiogram revealed a high-grade lesion in the ostium and mid segment of the first diagonal artery. Patient underwent a plain old balloon angioplasty of these lesions by Dr. Schmid. He had an uneventful postprocedure course. Currently he is remaining stable with no specific complaints. Has not had any bleeding or hematoma at the radial arterial point of site. The vital signs remained stable. Medications: Medication Review Details: Current Medications Hydrocodone Bitart/Acetaminophen (Hydrocodone-Acetaminophen 5-325 Mg Tablet) 1 tab PO Q8H PRN PRN Reason: pain (scale score 7-10) Albuterol Sulfate (Albuterol 2.5 Mg/3 Ml Neb) 2.5 mg INHALATION Q6H.RESP PRN PRN Reason: shortness of breath or wheezing Aspirin (Aspirin 81 Mg Ec Tablet) 81 mg PO DAILY [facility] Atorvastatin Calcium (Atorvastatin 40 Mg Tablet) 40 mg PO DAILY [facility] Last Admin: 12/04/22 10:33 Dose: 40 mg Cyanocobalamin (Cyanocobalamin 1,000 Mcg Tablet) 1,000 mcg PO DAILY [facility] Last Admin: 12/04/22 10:47 Dose: 1,000 mcg Diltiazem HCl (Diltiazem Er (24hr) 120 Mg Capsule) 120 mg PO DAILY [facility] Last Admin: 12/04/22 10:34 Dose: 120 mg Donepezil HCl (Donepezil 5 Mg Tablet) 10 mg PO DAILY [facility] Last Admin: 12/04/22 10:36 Dose: 10 mg Gabapentin (Gabapentin 300 Mg Capsule) 300 mg PO BEDTIME [facility] Last Admin: 12/04/22 20:28 Dose: 300 mg Hydrochlorothiazide (Hydrochlorothiazide 25 Mg Tablet) 25 mg PO DAILY [facility] Last Admin: 12/04/22 10:34 Dose: 25 mg Hydrocortisone (Hydrocortisone 2.5% Cream 28 Gm) 1 applic TOPICAL BID PRN PRN Reason: SCALING ON FACE OR EARS Losartan Potassium (Losartan 50 Mg Tablet) 25 mg PO DAILY [facility] Last Admin: 12/04/22 10:33 Dose: 25 mg Metformin HCl (Metformin 500 Mg Tablet) 250 mg PO BID [facility] Last Admin: 12/04/22 16:27 Dose: Not Given Metoprolol Succinate (Metoprolol Succinate Er (24 Hr) 50 Mg Tablet) 100 mg PO DAILY [facility] Last Admin: 12/04/22 10:34 Dose: 100 mg Naloxone HCl (Naloxone 0.4 Mg/Ml Sdv) 0.1 mg IVP Q2M PRN PRN Reason: RESPIRATORY RATE < 8/MIN Nitroglycerin (Nitroglycerin 0.4 Mg Sublingual Tablet) 0.4 mg SUBLINGUAL Q5M PRN PRN Reason: CHEST PAIN Non-Formulary Medication (Alendronate [Fosamax]) 70 mg PO Q7D [facility] Last Admin: 12/04/22 10:40 Dose: Not Given Non-Formulary Medication (Benzoyl Peroxide) 1 applic TOPICAL TID PRN PRN Reason: Acne Non-Formulary Medication (Hydroxyzine Hcl) 10 mg PO DAILY [facility] Last Admin: 12/04/22 10:40 Dose: Not Given Non-Formulary Medication (Sodium Fluoride-Pot Nitrate) 1 applic DENTAL DAILY [facility] Last Admin: 12/04/22 10:39 Dose: Not Given Tamsulosin HCl (Tamsulosin 0.4 Mg Capsule) 0.4 mg PO DAILY [facility] Last Admin: 12/04/22 10:33 Dose: 0.4 mg Temazepam (Temazepam 15 Mg Capsule) 15 mg PO BEDTIME PRN PRN Reason: INSOMNIA Vitals/I&O/Wt Last Vital Signs Temp 98.2 F 12/05/22 07:18 Pulse 63 12/05/22 07:18 Resp 16 12/05/22 07:18 BP 135/89 12/05/22 07:18 Pulse Ox 94 12/05/22 07:18 O2 Del Method Room Air 12/05/22 07:18 12/04/22 12/05/22 12/05/22 22:59 06:59 14:59 Intake Total 1240 / 1480 Balance 1240 / 1480 Weight last 48 hrs Weight 211 lb Physical Exam Narrative: GENERAL: The patient is alert and oriented times three. Not in any acute distress. HEENT: No significant pallor, icterus or lymphadenopathy.Oral cavity: There are no mucous membrane lesions. NECK: Trachea appears to be central. No masses noted. No JVD or thyromegaly appreciated. RESPIRATORY: Chest is symmetrical. No intercostals muscle retraction or any accessory muscle activation. There is no chest wall tenderness. Breath sounds are heard bilaterally. No rales or rhonchi heard. No evidence of any consolidation. BREASTS: Deferred. HEART: The heart sounds are normal. No S3 or S4. No significant murmurs. No pericardial rub ABDOMEN: No vessel pulsations or distention. No tenderness. No organomegaly appreciated. Bowel sounds are normally heard. : Deferred. RECTAL: Deferred. LYMPHATIC: No lymphadenopathy noted in the neck. EXTREMITIES: No hematoma bleeding at the right radial arterial puncture site. Good distal pulses MUSCULOSKELETAL: No acute joint deformities or swelling SKIN: There are no significant rashes or ecchymosis NEUROPSYCHIATRIC: The patient is alert and oriented x3. Appears to be in a good mood. No tremors or rigidity noted. Data 12/04/22 06:24 12/04/22 06:24 A&P Assessment and plan (1) Atherosclerotic heart disease of [place] coronary artery with other forms of angina pectoris: The cardiac catheterization revealed high-grade lesions in the first diagonal branch of the left anterior descending artery, at its ostium and in the midsegment. There is an eccentric 50% tubular lesion in the mid circumflex. Mild disease noted in the other vessels. Patient underwent PCI of the diagonal lesions by plain old balloon angioplasty. Currently remaining stable. (2) Atrial fibrillation: Patient is intermittent atrial fibrillation. Eliquis is on hold. This may be restarted tomorrow. 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 (4) Hypertension: Blood pressure is under control. May continue on the current medications. Qualifiers: Hypertension type: essential hypertension Qualified Code(s): I10 - Essential (primary) hypertension (5) Hyperlipidemia: Continue the statin. (6) Pacemaker: The pacemaker function was found to be appropriate. Continue on the current treatment Plan We will do a BMP today to evaluate the kidney function. Patient may be discharged home today. [facility] within the next 1 to 2 weeks. Patient will be seen by in the office as scheduled Patient is advised to continue the medications as mentioned above. The importance of compliance to diet, medications and exercise were discussed. In the event of the patient developing chest pain ,unusual palpitations or any new symptoms, is advised to contact me or come to the hospital. Attestations Medical Necessity Statement*: Discharge home today Coding Level of Care Code 76654 Diagnoses Atherosclerotic heart disease of [place] coronary artery with other forms of angina pectoris I25.118 Atrial fibrillation I48.11 Atrial fibrillation type: longstanding persistent Tachy-brandon syndrome I49.5 Hypertension I10 Hypertension type: essential hypertension Hyperlipidemia E78.5 Pacemaker Z95.0
--- NOTE | 2022-12-05 08:54 | ECG_ITS ---
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 Measurements Intervals Fisher Rate: 65 P: 150 NH: 175 QRS: -23 QRSD: 106 T: -33 QT: 377 QTc: 393 Interpretive Statements ELECTRONIC ATRIAL PACEMAKER LOW QRS VOLTAGE [QRS DEFLECTION < 0.5/1.0 mV IN LIMB/CHEST LEADS] INCOMPLETE RIGHT BUNDLE BRANCH BLOCK [90+ ms QRS DURATION, TERMINAL R IN V1/V2, 40+ ms S IN I/aVL/V4/V5/V6] POSSIBLE ANTERIOR MYOCARDIAL INFARCTION , OF INDETERMINATE AGE [30 ms Q WAVE IN V3/V4, OR R < 0.2 mV IN V4] Compared to ECG 08/10/2022 11:20:13 Low QRS voltage now present Sinus rhythm no longer present Myocardial infarct finding still present Electronically Signed On 12-05-2022 14:25:32 CDT by Martell Schmid M.D. [id number]
[2022-12-05] MEDS: metoprolol succinate ER (24 HR) 50 mg Tablet 100 MG PO (09:13)
[2022-12-05] MEDS: tamsulosin 0.4 mg Capsule PO (09:13)
[2022-12-05] MEDS: dilTIAZem ER (24HR) 120 mg Capsule PO (09:13)
[2022-12-05] MEDS: hydroCHLOROthiazide 25 mg Tablet PO (09:14)
[2022-12-05] MEDS: donepezil 5 MG Tablet 10 MG PO (09:14)
[2022-12-05] MEDS: losartan 50 mg Tablet 25 MG PO (09:14)
[2022-12-05] MEDS: atorvastatin 40 mg Tablet PO (09:14)
[2022-12-05] MEDS: aspirin 81 mg EC Tablet PO (09:14)
[2022-12-05 09:48] LABS: Anion Gap 15.1 (5-19); Blood Urea Nitrogen 15 mg/dL (8-23); Calcium 9.3 mg/dL (8.5-10.5); Carbon Dioxide 27 mmol/L (22-29); Chloride 106 mmol/L (98-107); Glucose 197 mg/dL (65-115); Osmolality Calculated 304 mOsm/kg (285-295); Potassium 4.1 mmol/L (3.5-5.1); Sodium 144 mmol/L (136-145)
--- NOTE | 2022-12-05 10:35 | PC.CHAP ---
Pastoral Care Encounter/Spiritual Assessment Type of Contact [] Declined terrazzo tile setter visit [] Patient/Family/Request visit [] Outpatient visit [] Follow-up visit [] Physician referral [] Code/Alert [x] Routine visit [] Staff referral [] Actively dying [] Patient sleeping [x] Family support [] [] Out of room [] Palliative care [] [] Receiving care in room [] Pre-surgical visit [] Trauma [] Long length of stay [] ICU visit [] Other: Relational/Emotional Strength [x] Patient feels connected with others/family/visitors/staff [] Distress [] Loneliness/isolation [] Abandonment Spirituality of Patient x[x] Person of Patricia [] Attends Jain of their Patricia [x] Believes in Prayer [] Reads Bible or Mandaen materials [] There are Spiritual issues to be addressed Director Consumer Interventions [x] Prayer [x] Active listening [x] Non-anxious presence [] Spiritual/emotional support [] Crisis/trauma care [] Spiritual counseling [] Bereavement support [] Provided bereavement packet [] Provided Bible/devotional materials [] Provided toy/stuffed animal, coloring book to patient or family member [] Provided Communion [] Anointing/[place] [] Salvation [x] Completed spiritual assessment [] Other: Impact on Illness or Injury [] Angry [] Fearful [] Anxious [] Often cries [] Exhaustion [] Unable to work [] Unable to attend samaritan [] Unable to walk/stand [] Unable to read [] Unable to drive [] Unable to eat/drink [] Unable to sleep [] Unable to be with family [] Patient intubated [] Other: Summary Time spent with patient 10 min
[2022-12-05] MEDS: cyanocobalamin 1,000 mcg Tablet 1000 MCG PO (10:40)
== END 2022-12-05 12:50 | disposition home or self-care (01) ==
LOC: CCL 05:55 → CSU 12-05 08:39
PROVIDERS: Internal Medicine Cardiovascular Disease; PCP Family Medicine; Visit Provider Internal Medicine Cardiovascular Disease
DX: R94.39 Abnormal result of other cardiovascular function study (principal); I25.118 Atherosclerotic heart disease of native coronary artery with other forms of angina pectoris; I48.11 Longstanding persistent atrial fibrillation; I49.5 Sick sinus syndrome; Z95.0 Presence of cardiac pacemaker; I10 Essential (primary) hypertension; E78.5 Hyperlipidemia, unspecified
CPT/HCPCS: 36415; 36416; 80048; 82962; 85025; 92920; 93005; 93458; 96361; 96365; 96376; 99152; 99153; C1725; C1769; C1887; C1894; J1644; J2250; J3010; J3490; J7030; Q0163; Q9967

== ENCOUNTER → 2022-12-17 12:29 | Outpatient (BNVA) | payer OTHER, SELFPAY | PROVIDERS: PCP Family Medicine; Visit Provider Nurse Practitioner Family | DX: I25.118 Atherosclerotic heart disease of native coronary artery with other forms of angina pectoris (principal); Z87.891 Personal history of nicotine dependence; I10 Essential (primary) hypertension | CPT/HCPCS: 36415; 80048; 99214 ==

== ENCOUNTER 2023-01-01 11:53 | Outpatient (CLI) | payer OTHER, SELFPAY ==
--- NOTE | 2023-01-01 11:58 | XR_ITS ---
WS: [id number] Exam: XR KUB [id number] Date/Time of Exam: 01/01/2023 12:22 PM Reason For Exam: STONES Comparison 02/23/2019. No bowel obstruction or free air. No calcifications seen in the region of the kidneys. No sign of org an enlargement. Bilateral nonspecific pelvic calcifications. Degenerative change and spondylosis of t he lumbar spine. XR/XR KUB [id number] IMPRESSION: 1. No acute abdominal finding.
== END 2023-01-01 11:54 | disposition home or self-care (01) ==
LOC: RAD 11:54
PROVIDERS: PCP Family Medicine; Visit Provider Urology
DX: N21.0 Calculus in bladder (principal); N40.1 Benign prostatic hyperplasia with lower urinary tract symptoms; N13.8 Other obstructive and reflux uropathy; N13.5 Crossing vessel and stricture of ureter without hydronephrosis; N52.1 Erectile dysfunction due to diseases classified elsewhere; Z79.899 Other long term (current) drug therapy; Z80.42 Family history of malignant neoplasm of prostate
CPT/HCPCS: 51741; 51798; 74018; 99213

== ENCOUNTER → 2023-02-04 10:19 | Outpatient (BNVA) | payer OTHER, SELFPAY | PROVIDERS: PCP Family Medicine; Visit Provider Internal Medicine Cardiovascular Disease | DX: I25.118 Atherosclerotic heart disease of native coronary artery with other forms of angina pectoris (principal); I10 Essential (primary) hypertension; E78.5 Hyperlipidemia, unspecified; Z95.0 Presence of cardiac pacemaker; Z87.891 Personal history of nicotine dependence | CPT/HCPCS: 99214 ==

== ENCOUNTER → 2023-03-14 09:59 | Outpatient (BNVA) | payer OTHER, SELFPAY | PROVIDERS: PCP Family Medicine; Visit Provider Internal Medicine Cardiovascular Disease | DX: Z45.010 Encounter for checking and testing of cardiac pacemaker pulse generator [battery] (principal) | CPT/HCPCS: 93296 ==

== ENCOUNTER 2023-05-28 12:11 | Outpatient (RCR) | payer OTHER, SELFPAY | END 2023-06-04 23:59 | disposition home or self-care (01) | LOC: SPT 12:11 | PROVIDERS: PCP Family Medicine; Visit Provider Family Medicine | DX: R26.0 Ataxic gait (principal) | CPT/HCPCS: 97110; 97161; 97530 ==

== ENCOUNTER 2023-06-05 06:00 | Outpatient (RCR) | payer OTHER, SELFPAY | END 2023-07-04 23:59 | disposition home or self-care (01) | LOC: SPT 06:00 | PROVIDERS: PCP Family Medicine; Visit Provider Family Medicine | DX: R26.0 Ataxic gait (principal) | CPT/HCPCS: 97110; 97530 ==

== ENCOUNTER 2023-07-05 06:00 | Outpatient (RCR) | payer OTHER, SELFPAY | END 2023-07-23 23:59 | disposition home or self-care (01) | LOC: SPT 06:00 | PROVIDERS: PCP Family Medicine; Visit Provider Family Medicine | DX: R26.0 Ataxic gait (principal) | CPT/HCPCS: 97110 ==

== ENCOUNTER → 2023-09-18 15:57 | Outpatient (BNVA) | payer OTHER, SELFPAY | PROVIDERS: PCP Family Medicine; Visit Provider Internal Medicine | DX: Z45.010 Encounter for checking and testing of cardiac pacemaker pulse generator [battery] (principal) | CPT/HCPCS: 93296 ==

== ENCOUNTER → 2023-12-12 14:30 | Outpatient (BNVA) | payer OTHER, SELFPAY | PROVIDERS: PCP Family Medicine; Visit Provider Internal Medicine Cardiovascular Disease | DX: R07.9 Chest pain, unspecified (principal); R06.02 Shortness of breath; Z95.0 Presence of cardiac pacemaker; I48.11 Longstanding persistent atrial fibrillation; I25.118 Atherosclerotic heart disease of native coronary artery with other forms of angina pectoris; I10 Essential (primary) hypertension; E78.2 Mixed hyperlipidemia; Z87.891 Personal history of nicotine dependence | CPT/HCPCS: 93005; 99214 ==

== ENCOUNTER 2023-12-18 07:44 | Outpatient (CLI) | payer OTHER, SELFPAY ==
[2023-12-18 08:03] VITALS: BMI 29.7
--- NOTE | 2023-12-18 08:09 | ECG_ITS ---
[facility] Test Date: 2023-12-18 Pat Name: Roverto Crawley Department: Room: Gender: Male Hospital Staff Pharmacist: Milly Delarosa : 1945 Requested By: Francisco Carroll Order Number: [id number] Rogelio MD: Francisco Carroll M.D. Interpretive Statements NAME OF STUDY: LEXISCAN SESTAMIBI STRESS TEST INDICATION: Chest Pain, PROCEDURE: At the baseline, the EKG revealed normal sinus rhythm with a poor R wave progression. Some nonspecific T wave changes. The baseline heart was 60 bpm with a blood pressue of 137/74 mm of Hg Lexiscan was infused over a period of 20 seconds. A total of 0.4 milligrams of Lexiscan was infused. The stress phase was continued for a total of 5 minutes. Heart rate at the end of the stress phase was 66 bpm with a blood pressure 106/57 mm of Hg. The EKG at the peak infusion revealed no significant changes. Sestamibi was injected 20 seconds after the Lexiscan infusion. Heart rate at the end of the recovery phase was 60 bpm with a blood pressure of 103/59 mm of Hg. CONCLUSION: 1. No significant EKG changes with the LexiScan infusion 2. No LexiScan induced chest pain or cardiac arrhythmia 3. Normal blood pressure and heart rate response 4. Sestamibi/sestamibi perfusion scan pending; see separate report. Electronically Signed On 12-21-2023 13:19:43 CDT by Francisco Carroll M.D. [id number]
--- NOTE | 2023-12-18 08:10 | NMCV_ITS ---
NM kiki perf SPECT r/s* [id number] Roverto Crawley Age: 78 Gender: M : 1945 Exam Date: 12/18/2023 08:48 Ordering Phys: Francisco Carroll MD ([email or web address]) Technologist: JEFFREY Cabrera Exam Location: [facility] Indications: CORONARY ANGIOPLASTY STATUS STRESS TEST [facility] for [facility] IMAGE PROTOCOL Rest/Stress 1 Lexiscan Day Radiopharmaceutical Dose (mCi) Administration Site Administered by Rest: Tc-99m 10.7 IV JEFFREY Nam Sestamibi Stress:Tc-99m 32.5 IV JEFFREY Nam Sestamibi Rest: 18-Dec-2023 60 Discovery 630 Stress: 18-Dec-2023 30 Discovery 630 0.4mg Lexiscan. Images obtained in supine and prone position. SPECT RESULTS Technical Quality: Excellent Raw Data Analysis: Normal Image Corrections: No attenuation or motion correction applied Summed Stress Score: 7 Summed Rest Score: 2 Summed Difference Score: 5 PERFUSION FINDINGS Moderate area of minimal to moderately decreased tracer uptake involving the basal mid and apical inferior, mid inferolateral and mid inferoseptal regions. Some reversibility was noted in all this region FUNCTIONAL RESULTS (calculated via Gated SPECT) Stress Image LV EF (%): 90 Stress EDV (mL):78 TID: 1.16 Stress ESV (mL):8 FUNCTIONAL FINDINGS: Segmental wall motion analysis revealing no gross wall motion abnormalities. The transient ischemic dilatation ratio was very slightly elevated to 1.16 IMPRESSIONS 1. Myocardial perfusion imaging revealing moderate area of minimal to moderately decreased tracer uptake involving the inferior, inferolateral and inferoseptal regions with some reversibility, suggesting myocardial scarring with ischemia in the distribution of the right coronary artery/circumflex artery. The elevated transient ischemic dilatation ratio also may suggest endocardial ischemia. 2. Normal LV ejection fraction of 90%. 3. LV wall motion analysis revealing no gross wall motion abnormalities. 4. Normal LV volume 5. Comparison with the previous study from 09/14/2022 is difficult, because the differences in technical quality Dr Francisco Carroll MD [facility] (Electronically Signed) Final Date: 19 Dec 2023 17:55 S
[2023-12-18] MEDS: regadenoson 0.4 Mg/5 ml Syringe 0.400000000000000022 MG IVP (09:29)
[2023-12-18 09:38] VITALS: BP 103/59; PULSE 60
== END 2023-12-18 07:45 | disposition home or self-care (01) ==
LOC: CDL 07:45
PROVIDERS: PCP Family Medicine; Visit Provider Internal Medicine Cardiovascular Disease
DX: Z98.61 Coronary angioplasty status (principal)
CPT/HCPCS: 36415; 78452; 93017; 96374; A9500; J2785

== ENCOUNTER 2024-01-14 11:57 | Emergency (ER) | payer OTHER, MEDICARE, SELFPAY ==
[2024-01-14 12:04] VITALS: BP 97/58; PULSE 71; RESP 17; TEMP 36.4; O2SAT 92; BMI 28.6
--- NOTE | 2024-01-14 13:19 | XRR_ITS ---
PROCEDURE INFORMATION: Exam: XR Lumbosacral Spine Exam date and time: 01/14/2024 1:47 PM Age: 78 years old Clinical indication: Low back pain; Patient HX: Back pain, difficulty walking TECHNIQUE: Imaging protocol: Radiologic exam of the lumbosacral spine. Views: 2 or 3 views. COMPARISON: CR (PELVIS, ) 06/11/2022 6:28 PM FINDINGS: Bones/joints: There are moderate degenerative changes of the sacroiliac joints. Mild osteoarthritis of the right hip joint, as manifested by decreased joint space, subchondral sclerosis, and marginal osteophyte formation. Mild osteoarthritis of the left hip joint, as manifested by decreased joint space, subchondral sclerosis, and marginal osteophyte formation. Moderate multilevel degenerative changes of the spine, as manifested by multilevel anterior osteophytes and multilevel decrease in intervertebral disc space. The facet joints demonstrate moderate degenerative narrowing and sclerosis. The spinal canal is patent. There is no evidence of acutely displaced skeletal fractures. There is no evidence of joint dislocation. No aggressive osseous lesions. Soft tissues: No acute soft tissue findings. Gastrointestinal tract: Nonobstructive bowel gas pattern. XR/XR lumbar spine 2-3V* [id number] IMPRESSION: Moderate degenerative changes without acute skeletal pathology.
--- NOTE | 2024-01-14 13:33 | ED_ITS ---
HPI - Back Pain/Injury General: Chief Complaint: Extremity Injury, Lower Stated Complaint: Hip pains Time Seen by Provider: 01/14/24 13:02 Source: patient Mode of arrival: ambulatory (with help of a cane) Limitations: no limitations History of Present Illness: Patient is a nice 78-year-old male presents to ED today with complaint of lower back pain. He states pain has been present over the past 3 weeks or so however just a few days ago he was lifting something and immediately noticed worsening pain. He states pain is centered to his lower back without radiation into his buttocks or lower extremity. He is not complaining of numbness, tingling, loss of sensation to the extremities. He has not noticed any color or temperature changes. He is not having hip pain. He is ambulatory here with the help of a cane. Patient states he does have a history of osteoporosis and is concerned about a lumbar compression fracture. He is not complaining of saddle anesthesia. He is reporting normal urinary and bowel habits. MD elicited complaint: back pain Onset (ago): week(s) Timing: constant Severity: moderate Location: lumbar spine Radiation: none Exacerbating factors: walking Relieving factors: immobilization Associated symptoms: Reports difficulty walking (secondary to the pain in his back); Deny abdominal pain, chills, dysuria, fatigue, fever(s) or hematuria Work related injury: No Review of Systems Const: Denies: fever(s), chills, body aches, fatigue or malaise Card: Denies: chest pain Resp: Denies: dyspnea GI: Denies: abdominal pain : Denies: flank pain, dysuria or hematuria Musc: Reports: back pain; Denies: neck pain, extremity pain, extremity swelling or joint pain Skin/Breast: Denies: rash Neuro: Reports: difficulty walking (secondary to the pain in his back); Denies: headache(s), numbness in extremities, weakness in extremities or sensory changes PFSH ED PFSH: Medical History History of nonmelanoma skin cancer BPH NOS w ur obs/LUTS Diabetes mellitus Pacemaker Hyperlipidemia Type 2 diabetes mellitus Hypertension Ureteral stricture Elevated PSA (~08/13/20) Erectile dysfunction Tachy-brandon syndrome Atrial fibrillation Surgical History H/O hernia repair H/O spinal fusion History of knee replacement Family History Mother , 80's No problems noted. Father , 80's No problems noted. Other CAD (coronary artery disease) Cancer Diabetes Stroke Social History Smoking and tobacco/nicotine status: former use of tobacco/nicotine Alcohol intake: never Substance/Drug Use: never Household members: spouse Marital status: service: Yes Current occupational status: retired Physical Exam Const: COMMON NORMALS: no acute distress, patient oriented x3, no limitations, healthy appearing and alert Neck/C-Spine: COMMON NORMALS: no JVD Resp: COMMON NORMALS: normal respiratory effort and clear to auscultation bilaterally AUSCULTATION: clear to auscultation bilaterally Cardio: COMMON NORMALS: no JVD, regular rate and regular rhythm RATE: regular rate RHYTHM: regular rhythm GI: COMMON NORMALS: Normal to inspection, nondistended, normoactive bowel sounds present, Soft to palpation and no masses PALPATION: Yes Soft to palpation : COMMON NORMALS: Yes no CVA tenderness BLADDER/KIDNEY EXAM: Yes no CVA tenderness Back/Pelvis: COMMON NORMALS: no CVA tenderness THORACIC SPINE/UPPER BACK: No thoracic spinal tenderness LUMBAR SPINE/LOWER BACK: Yes lumbar spinal tenderness, No paraspinal muscle tenderness, No paraspinal muscle spasm and Yes straight leg raise negative bilaterally PELVIS: Yes buttocks normal and No sciatic notch tenderness SACRUM: no tenderness COCCYX: no tenderness Extremity: COMMON NORMALS: capillary refill normal, no clubbing, cyanosis or edema and no pedal edema NARRATIVE EXTREMITY EXAM: normal pedal pulses GENERAL: Yes normal exam except as noted Neuro: COMMON NORMALS: patient oriented x3, moves all extremities, no focal motor deficits and no sensory deficits noted SENSORIUM/ORIENTATION: Yes alert Skin: COMMON NORMALS: no rashes or lesions noted GENERAL SKIN EXAM: no rashes or lesions noted Course Vital Signs: Vital signs: Vital Signs Temperature 97.5 F L 01/14/24 12:04 Pulse Rate 71 01/14/24 12:04 Respiratory Rate 17 01/14/24 12:04 Blood Pressure 97/58 01/14/24 12:04 Pulse Oximetry 92 01/14/24 12:04 Oxygen Delivery Me thod Room Air 01/14/24 12:04 MDM - Back Pain/Injury Medical Decision Making Patient has no acute neurologic deficits. Lumbar XR is unremarkable and unchanged when compared to previous. Patient is requesting a prescription for Diclofenac as his significant other will sometimes take this with good relief of her pain. This is reasonable. He also has Tramadol at home. He states he normally only takes one tablet a day. Instructed he can take one tablet up to every 6 hours as needed for his discomfort. [facility]. Return ED precautions given. Differential Diagnosis Likely lumbar radiculopathy, sciatica, strain of lumbar region and AAA Medical Records I reviewed the patient's medical records. XR interpretation done by ED provider, pending radiology final review Discharge Plan Discharge Patient Disposition: Home Clinical Impression: Low back pain Qualifiers: Chronicity: acute Back pain laterality: midline Sciatica presence: without sciatica Qualified Code(s): M54.50 - Low back pain, unspecified Condition: Stable Prescriptions: New diclofenac sodium 50 mg tablet,delayed release (DR/EC) 50 mg PO Q12H PRN (Reason: pain) Qty: 20 0RF No Action gabapentin 300 mg capsule 300 mg PO BEDTIME alendronate [Fosamax] 70 mg tablet 70 mg PO Q7D Rx Instructions: TAKE ON SATURDAY. cholecalciferol (vitamin D3) 25 mcg (1,000 unit) capsule 1,000 unit PO DAILY rosuvastatin 20 mg tablet 10 mg PO DAILY tamsulosin 0.4 mg capsule 0.4 mg PO DAILY Rx Instructions: TAKE APPROXIMATELY 30 MINUTES AFTER THE SAME MEAL EACH DAY. hydrochlorothiazide 25 mg tablet 25 mg PO DAILY metformin 500 mg tablet 250 mg PO BID Rx Instructions: TAKE 1/2 TABLET 2 TIMES DAILY diltiazem HCl [Cardizem CD] 120 mg capsule,extended release 24hr 120 mg PO DAILY metoprolol succinate 50 mg tablet extended release 24 hr 100 mg PO DAILY donepezil 5 mg tablet 10 mg PO DAILY finasteride 5 mg tablet 5 mg PO DAILY Plavix 75 mg tablet 75 mg PO DAILY Qty: 30 3RF nitroglycerin 0.4 mg tablet, sublingual 0.4 mg sublingual Q5M PRN (Reason: chest pain) 30 Days Qty: 30 3RF Rx Instructions: until response; do not exceed 3 doses per episode isosorbide mononitrate 30 mg tablet extended release 24 hr 30 mg PO DAILY Qty: 90 3RF hydrocortisone 2.5 % Cream 1 applic TOPICAL BID PRN (Reason: SCALING ON FACE OR EARS) hydroxyzine HCl 10 mg Tablet 10 mg PO DAILY sodium fluoride-pot nitrate 1.1-5 % Paste 1 applic DENTAL DAILY Rx Instructions: USE ONCE DAILY TOOTHPASTE benzoyl peroxide 2.5 % Cream 1 applic TOPICAL TID PRN (Reason: Acne) hydrocodone-acetaminophen 5-325 mg tablet 1 tab PO Q8H PRN (Reason: pain (scale score 7-10)) Qty: 10 0RF Discharge Orders: Discharge ED (Routine); Ordered 01/14/24 Ordered By: Natalie Garcia Referrals: Blanche Nelson MD [Primary Care Provider] - Activity Restrictions/Additional Instructions: As we discussed I would like [facility] You may take the pre scribed medication as directed to see if this will help with your back discomfort. You may also begin taking your Tramadol up to every 6 hours as needed. Coding Level of Care Code ED Volunteer Recruiter for Pily Aguirre
== END 2024-01-14 14:19 | disposition home or self-care (01) ==
PROVIDERS: Emergency Provider Physician Assistant; PCP Family Medicine
DX: M54.50 Low back pain, unspecified (principal); Z79.02 Long term (current) use of antithrombotics/antiplatelets; Z79.84 Long term (current) use of oral hypoglycemic drugs; Z87.891 Personal history of nicotine dependence; E11.9 Type 2 diabetes mellitus without complications; Z95.0 Presence of cardiac pacemaker; E78.5 Hyperlipidemia, unspecified; I10 Essential (primary) hypertension
CPT/HCPCS: 72100; 99283

== ENCOUNTER 2024-04-22 11:27 | Emergency (ER) | payer OTHER, SELFPAY ==
[2024-04-22 11:30] VITALS: BP 155/95; PULSE 71; RESP 18; TEMP 36.8; O2SAT 96; BMI 30.2
--- NOTE | 2024-04-22 11:35 | XRR_ITS ---
PROCEDURE INFORMATION: Exam: XR Left Shoulder Exam date and time: 04/22/2024 11:48 AM Age: 79 years old Clinical indication: Injury or trauma; Fall; Blunt trauma (contusions or hematomas); Shoulder; Left TECHNIQUE: Imaging protocol: Radiologic exam of the left shoulder. Views: 2 or more views. COMPARISON: CR XR chest 1V portable [id number] 08/10/2022 11:35 AM FINDINGS: Bones/joints: The bones appear osteopenic. No obvious acute fracture identified. No traumatic subluxation is seen. There are mild chronic degenerative changes. Generated for cardiac pacemaker partially obscures the scapula. Soft tissues: No pathologic soft tissue calcifications are seen. XR/XR shoulder LT min 2V* [id number] IMPRESSION: No acute findings.
--- NOTE | 2024-04-22 11:35 | XRR_ITS ---
PROCEDURE INFORMATION: Exam: XR Left Knee Exam date and time: 04/22/2024 11:51 AM Age: 79 years old Clinical indication: Injury or trauma; Fall; Blunt trauma; Knee; Left TECHNIQUE: Imaging protocol: Radiologic exam of the left knee. Views: 3 views. COMPARISON: CR XR knee LT 3V* [id number] 10/02/2018 3:10 PM FINDINGS: Bones/joints: Status post left knee arthroplasty. Femoral and tibial components of left knee prosthesis are in satisfactory position. No acute osseous abnormality identified and no gross evidence of hardware loosening compared to the prior exam of 10/02/2018. Soft tissues: No soft tissue gas or radiodense soft tissue foreign body. XR/XR knee LT 3V* [id number] IMPRESSION: No acute abnormality detected.
--- NOTE | 2024-04-22 11:35 | CT_ITS ---
WS: [id number] CT HEAD NONCONTRAST HISTORY: fall, head injury TECHNIQUE: Contiguous axial imaging performed through the brain in 2.5 mm imaging. Bone and soft tiss ue windows. Sagittal and coronal reformats reviewed. All CT scans at [facility] use at least one of these dose optimization techniques: automated exposure control; mA and/or kV adjustment per pa tient size (includes targeted exams where dose is matched to clinical indication); or iterative recon struction. DLP: 1162.78 mGy.cm COMPARISON: 02/10/2021 No acute intracranial hemorrhage, midline shift or mass effect. Mild atrophy and small vessel disease. No progression since the study from 2020. No lacunar infarcts. Ventricles: Normal size with no hydrocephalus. No inferior displacement of the cerebellar tonsils. Paranasal sinuses: As visualized are clear. Mastoid air cells: Well pneumatized. Calvarium and scalp: No acute fracture. Mild soft tissue edema centered over the LEFT orbit. Mild subluxation of the LEFT mandibular condyle from the TM joint. No fracture identified. CT/CT head wo con* [id number] IMPRESSION: 1. No acute intracranial hemorrhage or edema. 2. Mild atrophy and small vessel ischemic disease. 3. Minimal soft tissue injury over the LEFT globe. 4. Mild subluxation of the LEFT mandibular head from the TM joint. May not be acute.
--- NOTE | 2024-04-22 11:35 | XRR_ITS ---
PROCEDURE INFORMATION: Exam: XR Left Hip Exam date and time: 04/22/2024 11:52 AM Age: 79 years old Clinical indication: Injury or trauma; Fall; Blunt trauma (contusions or hematomas); Left; Hip; Additional info: Fall, left hip pain. With pelvis TECHNIQUE: Imaging protocol: Radiologic exam of the left hip. Views: 2 or 3 views hip with pelvis when performed. COMPARISON: CT abdomen pelvis w con* 11/10/2018 FINDINGS: Bones/joints: No acute fracture or other acute osseous abnormality of the left hip is identified. Small trochanteric enthesophytes are incidentally noted. No obvious acute pelvic fracture detected. Soft tissues: Unremarkable. XR/XR hip LT 2-3V wo/w pel* [id number] IMPRESSION: No acute findings.
--- NOTE | 2024-04-22 12:27 | W.ED.FALL ---
HPI - Fall General: Chief Complaint: Fall Stated Complaint: [facility]--[facility] on entire left side Time Seen by Provider: 04/22/24 11:33 History of Present Illness: 79-year-old man with history of diabetes, pacemaker, hyperlipidemia, type 2 diabetes on Plavix who was taking a family member to a doctor's appointment and when he was going to get in the car he lost his balance and fell onto his left side. He hit his left head. Has an abrasion of by his left eye where his glasses were. He says he has a headache. No neck pain. No chest pain. He has some left shoulder pain. Left knee pain. He is still able to walk. No obvious deformities. No shortness of breath. No abdominal pain. No nausea or vomiting. No loss of consciousness. No altered mental status. No focal motor deficits. Related Data Home Medications Medication Instructions Recorded Confirmed alendronate 70 mg tablet (Fosamax) 70 mg PO Q7D 11/04/19 01/01/23 cholecalciferol (vitamin D3) 25 1,000 unit PO DAILY 11/04/19 01/01/23 mcg (1,000 unit) capsule diltiazem HCl 120 mg 120 mg PO DAILY 11/04/19 01/01/23 capsule,extended release 24 hr (Cardizem CD) gabapentin 300 mg capsule 300 mg PO BEDTIME 11/04/19 01/01/23 hydrochlorothiazide 25 mg tablet 25 mg PO DAILY 11/04/19 01/01/23 metformin 500 mg tablet 250 mg PO BID 11/04/19 01/01/23 rosuvastatin 20 mg tablet 10 mg PO DAILY 11/04/19 01/01/23 tamsulosin 0.4 mg capsule 0.4 mg PO DAILY 11/04/19 01/01/23 benzoyl peroxide 2.5 % topical 1 applic topical TID PRN Acne 12/21/20 01/01/23 cream hydrocortisone 2.5 % topical cream 1 applic topical BID PRN SCALING 12/21/20 01/01/23 ON FACE OR EARS hydroxyzine HCl 10 mg tablet 10 mg PO DAILY 12/21/20 01/01/23 sodium fluoride 1.1 %-potassium 1 applic dental DAILY 12/21/20 01/01/23 nitrate 5 % dental paste metoprolol succinate 50 mg 100 mg PO DAILY 11/13/21 01/01/23 tablet,extended release 24 hr donepezil 5 mg tablet 10 mg PO DAILY 05/14/22 01/01/23 finasteride 5 mg tablet 5 mg PO DAILY 01/01/23 01/01/23 Previous Rx's Medication Instructions Recorded hydrocodone 5 mg-acetaminophen 325 1 tab PO Q8H PRN pain (scale score 06/11/22 mg tablet 7-10) #10 tabs clopidogrel 75 mg tablet (Plavix) 75 mg PO DAILY #30 tabs 12/17/22 nitroglycerin 0.4 mg sublingual 0.4 mg sublingual Q5M PRN chest 12/12/23 tablet pain 30 days #30 tabs isosorbide mononitrate 30 mg 30 mg PO DAILY #90 tabs 01/07/24 tablet,extended release 24 hr diclofenac sodium 50 mg 50 mg PO Q12H PRN pain #20 tabs 01/14/24 tablet,delayed release Allergies Allergy/AdvReac Type Severity Reaction Status Date / Time atorvastatin Allergy ALGY-Rash Verified 12/12/23 14:00 metronidazole Allergy ALGY-Rash Verified 12/12/23 14:00 pravastatin Allergy Unknown Verified 12/12/23 14:00 Review of Systems Narrative: Constitutional symptoms: Negative except as documented in HPI. Skin symptoms: Negative except as documented in HPI. Eye symptoms: Negative except as documented in HPI. ENMT symptoms: Negative except as documented in HPI. Respiratory symptoms: Negative except as documented in HPI. Cardiovascular symptoms: Negative except as documented in HPI. Gastrointestinal symptoms: Negative except as documented in HPI. Genitourinary symptoms: Negative except as documented in HPI. Musculoskeletal symptoms: Negative except as documented in HPI. Neurologic symptoms: Negative except as documented in HPI. Psychiatric symptoms: Negative except as documented in HPI. Endocrine symptoms: Negative except as documented in HPI. PFSH ED PFSH: Medical History History of nonmelanoma skin cancer BPH NOS w ur obs/LUTS Diabetes mellitus Pacemaker Hyperlipidemia Type 2 diabetes mellitus Hypertension Ureteral stricture Elevated PSA (~08/13/20) Erectile dysfunction Tachy-brandon syndrome Atrial fibrillation Surgical History H/O hernia repair H/O spinal fusion History of knee replacement Family History Mother , 80's No problems noted. Father , 80's No problems noted. Other CAD (coronary artery disease) Cancer Diabetes Stroke Social History Smoking and tobacco/nicotine status: former use of tobacco/nicotine Alcohol intake: never Substance/Drug Use: never Household members: spouse Marital status: service: Yes Current occupational status: retired Physical Exam Narrative: EXAM NARRATIVE: General: Alert, no acute distress. Skin: Warm, dry. Abrasion on the left orthodox area Head: Normocephalic, atraumatic. Neck: Supple, trachea midline. Eye: Extraocular movements are intact. Ears, nose, mouth and throat: mucosa moist. Cardiovascular: Regular, Normal peripheral perfusion. Respiratory: Lungs are clear to auscultation, respirations are non-labored, breath sounds are equal, Symmetrical chest wall expansion. Gastrointestinal: Soft, Nontender, Non distended Musculoskeletal: Normal ROM, no deformity. Neurological: Alert and oriented, No focal neurological deficit observed. Psychiatric: Cooperative, appropriate mood & affect. Course Vital Signs: Vital signs: Vital Signs Temperature 98.3 F 04/22/24 11:30 Pulse Rate 60 04/22/24 12:41 Respiratory Rate 18 04/22/24 11:30 Blood Pressure 137/79 04/22/24 12:41 Pulse Oximetry 93 04/22/24 12:41 Oxygen Delivery Me thod Room Air 04/22/24 12:41 MDM - Fall Medical Decision Making CT head: No acute intracranial process. no intracranial hemorrhage, no evidence of infarct. no evidence of acute fracture.This was reviewed and interpreted by myself the ER physician. X-ray of the shoulder: No fractures. No dislocations. Pacemaker is in place. No infiltrate on the lung. This was reviewed and interpreted by myself the emergency room physician. I also reviewed the radiology report. X-ray of the left hip and pelvis: Nothing acute. This was reviewed and interpreted by myself the emergency room physician. I also reviewed the radiology report. X-ray of the left knee: Knee replacement intact. No acute findings. This was reviewed and interpreted by myself the emergency room physician. I also reviewed the radiology report. Assessment and plan: Fall Head injury Shoulder strain Knee injury - Discharged home - Discussed plan with patient. Answered any questions. - Evaluation and treatment of this problem were appropriate in the emergency setting. Lab Data Radiology Impressions Head CT 04/22/24 11:35 IMPRESSION: 1. No acute intracranial hemorrhage or edema. 2. Mild atrophy and small vessel ischemic disease. 3. Minimal soft tissue injury over the LEFT globe. 4. Mild subluxation of the LEFT mandibular head from the TM joint. May not be acute. Hip/Pelvis X-Ray 04/22/24 11:35 IMPRESSION: No acute findings. Knee X-Ray 04/22/24 11:35 IMPRESSION: No acute abnormality detected. Shoulder X-Ray 04/22/24 11:35 IMPRESSION: No acute findings. All radiology interpretation(s) finalized by discharge Discharge Plan Discharge Patient Disposition: Home Clinical Impression: Fall, Closed head injury, Injury of shoulder, left, Knee injury Condition: Stable Prescriptions: No Action gabapentin 300 mg capsule 300 mg PO BEDTIME alendronate [Fosamax] 70 mg tablet 70 mg PO Q7D Rx Instructions: TAKE ON SATURDAY. cholecalciferol (vitamin D3) 25 mcg (1,000 unit) capsule 1,000 unit PO DAILY rosuvastatin 20 mg tablet 10 mg PO DAILY tamsulosin 0.4 mg capsule 0.4 mg PO DAILY Rx Instructions: TAKE APPROXIMATELY 30 MINUTES AFTER THE SAME MEAL EACH DAY. hydrochlorothiazide 25 mg tablet 25 mg PO DAILY metformin 500 mg tablet 250 mg PO BID Rx Instructions: TAKE 1/2 TABLET 2 TIMES DAILY diltiazem HCl [Cardizem CD] 120 mg capsule,extended release 24hr 120 mg PO DAILY metoprolol succinate 50 mg tablet extended release 24 hr 100 mg PO DAILY donepezil 5 mg tablet 10 mg PO DAILY finasteride 5 mg tablet 5 mg PO DAILY Plavix 75 mg tablet 75 mg PO DAILY Qty: 30 3RF nitroglycerin 0.4 mg tablet, sublingual 0.4 mg sublingual Q5M PRN (Reason: chest pain) 30 Days Qty: 30 3RF Rx Instructions: until response; do not exceed 3 doses per episode isosorbide mononitrate 30 mg tablet extended release 24 hr 30 mg PO DAILY Qty: 90 3RF hydrocortisone 2.5 % Cream 1 applic TOPICAL BID PRN (Reason: SCALING ON FACE OR EARS) hydroxyzine HCl 10 mg Tablet 10 mg PO DAILY sodium fluoride-pot nitrate 1.1-5 % Paste 1 applic DENTAL DAILY Rx Instructions: USE ONCE DAILY TOOTHPASTE benzoyl peroxide 2.5 % Cream 1 applic TOPICAL TID PRN (Reason: Acne) hydrocodone-acetaminophen 5-325 mg tablet 1 tab PO Q8H PRN (Reason: pain (scale score 7-10)) Qty: 10 0RF diclofenac sodium 50 mg tablet,delayed release (DR/EC) 50 mg PO Q12H PRN (Reason: pain) Qty: 20 0RF Discharge Orders: Discharge ED (Routine); Ordered 04/22/24 Ordered By: Marisel Delaney Referrals: Blanche Nelson MD [Primary Care Provider] - Discharge Diet: Usual diet Discharge Activity: Increase activity as tolerated Patient Instructions: Fall Prevention for Older Adults (ED) Activity Restrictions/Additional Instructions: Thank you for choosing [facility] for your healthcare needs today. Please realize this is an emergency room and that we are providing you with a medical screening exam and this may not be complete and all inclusive of all the testing and or work up that you may need to determine your ailment or severity of your illness. You have been screened and evaluated and felt safe for discharge. Health conditions do change or evolve sometimes and as such it is important that you follow up with your Primary Doctor to be re checked, 3-5 days is a general good time frame for follow up. You are always welcome to return to the ED for re assessment if your symptoms are worsening or you have new concerns Coding Level of Care Code ED Mathematics Improvement Teacher for Pily Aguirre
[2024-04-22 12:41] VITALS: BP 137/79; PULSE 60; O2SAT 93
[2024-04-22 13:20] VITALS: BP 148/94; PULSE 60; O2SAT 95
== END 2024-04-22 13:29 | disposition home or self-care (01) ==
PROVIDERS: Emergency Provider Emergency Medicine; PCP Family Medicine
DX: S00.81XA Abrasion of other part of head, initial encounter (principal); S89.92XA Unspecified injury of left lower leg, initial encounter; Z79.84 Long term (current) use of oral hypoglycemic drugs; Z79.02 Long term (current) use of antithrombotics/antiplatelets; Z87.891 Personal history of nicotine dependence; E11.9 Type 2 diabetes mellitus without complications; Z95.0 Presence of cardiac pacemaker; I10 Essential (primary) hypertension; E78.5 Hyperlipidemia, unspecified; W01.0XXA Fall on same level from slipping, tripping and stumbling without subsequent striking against object, initial encounter; Y92.531 Health care provider office as the place of occurrence of the external cause
CPT/HCPCS: 70450; 73030; 73502; 73562; 99284

== ENCOUNTER → 2024-06-09 10:41 | Outpatient (BNVA) | payer OTHER, SELFPAY | PROVIDERS: PCP Family Medicine; Visit Provider Nurse Practitioner Family | DX: I25.118 Atherosclerotic heart disease of native coronary artery with other forms of angina pectoris (principal); R94.39 Abnormal result of other cardiovascular function study; Z95.0 Presence of cardiac pacemaker; I10 Essential (primary) hypertension; E78.5 Hyperlipidemia, unspecified; Z87.891 Personal history of nicotine dependence | CPT/HCPCS: 99214 ==

== ENCOUNTER → 2024-06-10 09:17 | Outpatient (BNVA) | payer OTHER, SELFPAY ==
--- NOTE | 2024-06-17 20:03 | PM.CONSULT ---
Providers/Reason For Consult Consulting Physician/Specialty*: KINGSLEY Carroll MD/cardiology Reason for Consult*: Patient with unstable anginal symptoms/history of ASHD Attending Physician: Francisco Carroll MD Primary Care Provider: Blanche Nelson MD History of Present Illness History of Present Illness Roverto Crawley is a 79 year old male with a history of atherosclerotic heart disease and a recent abnormal Myocardial perfusion imaging, he is presenting with complaints of increasing episodes of chest pain since this afternoon. Apparently the patient has been in his baseline state of health up until this afternoon when he had episodes of chest pain starting around 2:00. He had a sharp/heavy pain in the mid substernal region, with intensity of 10/10, each episodes lasting for 1 to 2 minutes. These episodes were occurring at 5 minutes interval. After the third episode, he is took 1 sublingual nitro. The pain somewhat eased off. Since he started having the pain again, an ambulance was called in. In the ambulance, he was given 2 more sublingual nitro. By the time he came to the emergency room, most of the severe chest pain have subsided. He continues to have the tight feeling in the chest. Medications/Allergies Home Medications Medication Instructions Recorded Confirmed Last Taken Type alendronate 70 mg tablet (Fosamax) 70 mg PO Q7D 11/04/19 06/09/24 11/28/22 09:00 History cholecalciferol (vitamin D3) 25 1,000 unit PO DAILY 11/04/19 06/09/24 12/03/22 09:00 History mcg (1,000 unit) capsule diltiazem HCl 120 mg 120 mg PO DAILY 11/04/19 06/09/24 12/04/22 05:00 History capsule,extended release 24 hr (Cardizem CD) gabapentin 300 mg capsule 300 mg PO BEDTIME 11/04/19 06/09/24 12/03/22 21:00 History hydrochlorothiazide 25 mg tablet 25 mg PO DAILY 11/04/19 06/09/24 12/04/22 05:00 History metformin 500 mg tablet 250 mg PO BID 11/04/19 06/09/24 12/04/22 05:00 History rosuvastatin 20 mg tablet 10 mg PO DAILY 11/04/19 06/09/24 12/03/22 21:00 History tamsulosin 0.4 mg capsule 0.4 mg PO DAILY 11/04/19 06/09/24 12/03/22 21:00 History benzoyl peroxide 2.5 % topical 1 applic topical TID PRN Acne 12/21/20 06/09/24 06/18/22 History cream hydrocortisone 2.5 % topical cream 1 applic topical BID PRN SCALING 12/21/20 06/09/24 12/21/20 History ON FACE OR EARS hydroxyzine HCl 10 mg tablet 10 mg PO DAILY 12/21/20 06/09/24 12/03/22 21:00 History sodium fluoride 1.1 %-potassium 1 applic dental DAILY 12/21/20 06/09/24 06/20/22 22:00 History nitrate 5 % dental paste metoprolol succinate 50 mg 100 mg PO DAILY 11/13/21 06/09/24 12/04/22 05:00 History tablet,extended release 24 hr donepezil 5 mg tablet 10 mg PO DAILY 05/14/22 06/09/24 12/03/22 21:00 History hydrocodone 5 mg-acetaminophen 325 1 tab PO Q8H PRN pain (scale score 06/11/22 06/09/24 06/24/22 Rx mg tablet 7-10) #10 tabs clopidogrel 75 mg tablet (Plavix) 75 mg PO DAILY #30 tabs 12/17/22 06/09/24 Unknown Rx finasteride 5 mg tablet 5 mg PO DAILY 01/01/23 06/09/24 Unknown History nitroglycerin 0.4 mg sublingual 0.4 mg sublingual Q5M PRN chest 12/12/23 06/09/24 Unknown Rx tablet pain 30 days #30 tabs isosorbide mononitrate 30 mg 30 mg PO DAILY #90 tabs 01/07/24 06/09/24 Unknown Rx tablet,extended release 24 hr diclofenac sodium 50 mg 50 mg PO Q12H PRN pain #20 tabs 01/14/24 06/09/24 Unknown Rx tablet,delayed release Allergies Allergy/AdvReac Type Severity Reaction Status Date / Time atorvastatin Allergy ALGY-Rash Verified 06/09/24 10:44 metronidazole Allergy ALGY-Rash Verified 06/09/24 10:44 pravastatin Allergy Unknown Verified 06/09/24 10:44 PFSH Acute PFSH: Medical History History of nonmelanoma skin cancer BPH NOS w ur obs/LUTS Diabetes mellitus Pacemaker Hyperlipidemia Type 2 diabetes mellitus Hypertension Ureteral stricture Elevated PSA (~08/13/20) Erectile dysfunction Tachy-brandon syndrome Atrial fibrillation Surgical History H/O hernia repair H/O spinal fusion History of knee replacement Family History Mother , 80's No problems noted. Father , 80's No problems noted. Other CAD (coronary artery disease) Cancer Diabetes Stroke Social History Smoking and tobacco/nicotine status: former use of tobacco/nicotine Alcohol intake: never Substance/Drug Use: never Household members: spouse Marital status: service: Yes Current occupational status: retired Data Other data: EKG from today A paced, V sensed rhythm. No acute ST-T changes Myocardial perfusion imaging on 12/18/2023 1. Myocardial perfusion imaging revealing moderate area of minimal to moderately decreased tracer uptake involving the inferior, inferolateral and inferoseptal regions with some reversibility, suggesting myocardial scarring with ischemia in the distribution of the right coronary artery/circumflex artery. The elevated transient ischemic dilatation ratio also may suggest endocardial ischemia. 2. Normal LV ejection fraction of 90%. 3. LV wall motion analysis revealing no gross wall motion abnormalities. 4. Normal LV volume 5. Comparison with the previous study from 09/14/2022 is difficult, because the differences in technical quality Cardiac catheterization 5-23 2. 1.? Normal left main. 2.? Mild diffuse intimal irregularities in the left and descending artery.? High-grade lesion in the mid segment of the first diagonal branch.? It appears to be a small to medium caliber vessel. 3. Moderate eccentric narrowing in the mid circumflex artery. 4.? Mild diffuse disease in the other vessels. 5.? Normal LV ejection fraction of 65%.? LVEDP of 22 mmHg. Coding Level of Care Code Acute Code for Chg Fwd
== END ==
PROVIDERS: PCP Family Medicine; Visit Provider Internal Medicine Cardiovascular Disease
DX: Z45.018 Encounter for adjustment and management of other part of cardiac pacemaker (principal)
CPT/HCPCS: 93296

== ENCOUNTER 2024-06-17 15:52 | Inpatient (IN) | payer OTHER, SELFPAY ==
[2024-06-17] VITALS (12 sets, daily range): BP systolic 102–153; BP diastolic 64–95; PULSE 58–77; RESP 16–17; TEMP 37; O2SAT 92–97; BMI 28.6; BMI 30.5
--- NOTE | 2024-06-17 16:00 | XRR_ITS ---
PROCEDURE INFORMATION: Exam: XR Chest Exam date and time: 06/17/2024 4:26 PM Age: 79 years old Clinical indication: Cough and dyspnea; Additional info: Dyspnea/cough TECHNIQUE: Imaging protocol: Radiologic exam of the chest. Views: 1 view. COMPARISON: CR XR chest 1V portable [id number] 08/10/2022 11:35 AM FINDINGS: Tubes, catheters and devices: Left subclavian pacer is in stable position. Lungs: Unremarkable. No consolidation. Pleural spaces: Unremarkable. No pleural effusion. No pneumothorax. Heart/Mediastinum: Stable cardiomediastinal silhouette. Vasculature: Atherosclerotic aortic calcifications. Bones/joints: Unremarkable. XR/XR chest 1V portable [id number] IMPRESSION: No acute cardiopulmonary findings.
--- NOTE | 2024-06-17 16:00 | ECG_ITS ---
[employer] [employer] Test Date: 2024-06-17 Pat Name: Roverto Crawley Department: Room: Gender: Male Research Programmer: : [id number] Requested By: Pastor Mondragon Order Number: [id number] Rogelio MD: Francisco Carroll M.D. Measurements Intervals [place] Rate: 66 P: 0 MN: 0 QRS: -88 QRSD: 148 T: 85 QT: 470 QTc: 493 Interpretive Statements ELECTRONIC VENTRICULAR PACEMAKER. Possible underlying atrial fibrillation ABNORMAL RHYTHM ECG Compared to ECG 12/12/2023 14:35:06 Atrial-paced complex(es) or rhythm no longer present Electronically Signed On 06-18-2024 21:37:13 CHEMISTS by Francisco Carroll M.D. [id number]
--- NOTE | 2024-06-17 16:04 | ED_ITS ---
HPI - Chest Pain 2 General: Chief Complaint: Chest Pain Stated Complaint: chest pain Time Seen by Provider: 06/17/24 15:58 History of Present Illness: 79-year-old male presents emergency room complaining of chest pain. Patient has known history of coronary disease earlier today and episode of chest pain improved a little bit after given nitro then worsening Delaney called EMS they gave him 2 more nitro he states has improved significantly but he feels a pressure sensation there. He tells me he is scheduled to have angiogram done later this month based on the stress test from a year ago. Reviewing chart and appears patient had a Lexiscan sestamibi stress test in December of this year that showed some areas of reversibility. He has not had any intervention since th His last intervention was in December 2022. 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 According to the notes in the chart patient has been having escalating chest discomfort for last couple of months and december after the most recent stress test she was given isosorbide mononitrate despite this he still having symptoms. Associated symptoms: Deny abdominal pain, dyspnea or fever(s) Related Data Home Medications Medication Instructions Recorded Confirmed alendronate 70 mg tablet (Fosamax) 70 mg PO Q7D 11/04/19 06/18/24 cholecalciferol (vitamin D3) 25 1,000 unit PO DAILY 11/04/19 06/18/24 mcg (1,000 unit) capsule gabapentin 300 mg capsule 300 mg PO BEDTIME 11/04/19 06/18/24 hydrochlorothiazide 25 mg tablet 25 mg PO QAM 11/04/19 06/18/24 metformin 500 mg tablet 250 mg PO BID 11/04/19 06/18/24 rosuvastatin 20 mg tablet 10 mg PO DAILY 11/04/19 06/18/24 tamsulosin 0.4 mg capsule 0.4 mg PO DAILY 11/04/19 06/18/24 hydroxyzine HCl 10 mg tablet 10 mg PO BID PRN Anxiety 12/21/20 06/18/24 donepezil 5 mg tablet 10 mg PO BEDTIME 05/14/22 06/18/24 finasteride 5 mg tablet 5 mg PO DAILY 01/01/23 06/18/24 diltiazem HCl 300 mg capsule,24 300 mg PO QAM 06/18/24 06/18/24 hr,extended release (Tiazac) metoprolol succinate 100 mg 100 mg PO DAILY 06/18/24 06/18/24 tablet,extended release 24 hr tramadol 50 mg tablet 50 mg PO Q6H PRN Pain 06/18/24 06/18/24 Previous Rx's Medication Instructions Recorded clopidogrel 75 mg tablet (Plavix) 75 mg PO DAILY #30 tabs 12/17/22 nitroglycerin 0.4 mg sublingual 0.4 mg sublingual Q5M PRN chest 12/12/23 tablet pain 30 days #30 tabs isosorbide mononitrate 30 mg 30 mg PO DAILY #90 tabs 01/07/24 tablet,extended release 24 hr aspirin 81 mg tablet,delayed 81 mg PO DAILY 30 days #30 tabs 06/19/24 release Allergies Allergy/AdvReac Type Severity Reaction Status Date / Time atorvastatin Allergy ALGY-Rash Verified 06/09/24 10:44 metronidazole Allergy ALGY-Rash Verified 06/09/24 10:44 pravastatin Allergy Unknown Verified 06/09/24 10:44 Review of Systems 2 Const: Denies: fever(s) or chills Card: Reports: chest pain Resp: Denies: dyspnea GI: Denies: abdominal pain : Denies: dysuria, urinary frequency or urinary urgency Musc: Denies: neck pain or back pain Skin/Breast: Denies: rash PFSH ED 2 PFSH: Medical History History of nonmelanoma skin cancer BPH NOS w ur obs/LUTS Diabetes mellitus Pacemaker Hyperlipidemia Type 2 diabetes mellitus Hypertension Ureteral stricture Elevated PSA (~08/13/20) Erectile dysfunction Tachy-brandon syndrome Atrial fibrillation Surgical History H/O hernia repair H/O spinal fusion History of knee replacement Family History Mother , 80's No problems noted. Father , 80's No problems noted. Other CAD (coronary artery disease) Cancer Diabetes Stroke Social History Smoking and tobacco/nicotine status: former use of tobacco/nicotine Alcohol intake: never Substance/Drug Use: never Household members: spouse Marital status: service: Yes Current occupational status: retired Physical Exam 2 Const: COMMON NORMALS: no acute distress GENERAL APPEARANCE: cooperative and comfortable ORIENTATION/CONSCIOUSNESS: Yes awake, Yes oriented to person, Yes oriented to place and Yes oriented to time HENMT: COMMON NORMALS: normocephalic, atraumatic and hearing grossly normal bilaterally HEAD & SCALP: normocephalic and atraumatic Resp: COMMON NORMALS: normal respiratory effort, No retractions, No use of accessory muscles and clear to auscultation bilaterally AUSCULTATION: clear to auscultation bilaterally Cardio: COMMON NORMALS: regular rate, regular rhythm and No murmurs present (Cardio) RATE: regular rate RHYTHM: regular rhythm GI: COMMON NORMALS: Soft to palpation and No hepatosplenomegaly present A USCULTATION: Yes normoactive bowel sounds PALPATION: Yes Soft to palpation, No Tenderness to palpation present (GI), No Guarding due to palpation present (GI) and Yes No hepatosplenomegaly present Extremity: COMMON NORMALS: normal to inspection, capillary refill normal, no clubbing, cyanosis or edema, no calf tenderness and no pedal edema Neuro: SENSORIUM/ORIENTATION: Yes oriented to person, Yes oriented to place and Yes oriented to time Skin: COMMON NORMALS: no rashes or lesions noted GENERAL SKIN EXAM: no rashes or lesions noted Course 2 Vital Signs: Vital signs: Vital Signs Temperature 98.7 F 06/19/24 12:25 Pulse Rate 78 06/19/24 12:25 Respiratory Rate 20 H 06/19/24 12:25 Blood Pressure 141/91 06/19/24 12:25 Pulse Oximetry 98 06/19/24 12:25 Oxygen Delivery Me thod Room Air 06/19/24 07:44 MDM - Chest Pain Medical Decision Making Discussed with cardiology and hospitalist. Patient recently had abnormal stress test December 2023. And he is scheduled for a angiogram per his report. Cardiology has agreed to see him and admit him consult cardiology. Orders written. Medical Records I reviewed the patient's medical records. Lab Data I reviewed the patient's lab results. 06/19/24 05:15 06/19/24 05:15 Radiology Impressions Chest X-Ray 06/17/24 16:00 IMPRESSION: No acute cardiopulmonary findings. Laboratory Results WBC 9.63 10^3/uL (3.29-11.43) 06/17/24 15:59 RBC 4.61 10^6/uL (3.85-5.65) 06/17/24 15:59 Hgb 14.00 g/dL (11.27-16.99) 06/17/24 15:59 Hct 42.9 % (37-53) 06/17/24 15:59 MCV 93.1 fl (82-101) 06/17/24 15:59 MCH 30.4 pg (27-33) 06/17/24 15:59 MCHC 32.6 g/dL (30-55) 06/17/24 15:59 RDW 13.4 % (12.1-15.1) 06/17/24 15:59 Plt Count 208 10^3/cmm (157-399) 06/17/24 15:59 MPV 10.0 fL (7.4-10.4) 06/17/24 15:59 Neut % (Auto) 63.0 % 06/17/24 15:59 Lymph % (Auto) 23.9 % 06/17/24 15:59 [place] % (Auto) 11.3 % 06/17/24 15:59 Eos % (Auto) 0.9 % 06/17/24 15:59 Baso % (Auto) 0.3 % 06/17/24 15:59 Neut # (Auto) 6.06 10^3/uL (1.8-7.7) 06/17/24 15:59 Lymph # (Auto) 2.3 10^3/uL (0.8-4.8) 06/17/24 15:59 [place] # (Auto) 1.1 10^3/uL (0.2-0.9) H 06/17/24 15:59 Eos # (Auto) 0.1 10^3/uL (0.0-0.8) 06/17/24 15:59 Baso # (Auto) 0.0 10^3/uL (0.0-0.1) 06/17/24 15:59 Nucleated RBC % (auto) 0 % 06/17/24 15:59 Nucleated RBCs # 0.0 /100WBC 06/17/24 15:59 Sodium 145 mmol/L (136-145) 06/17/24 15:59 Potassium 4.0 mmol/L (3.5-5.1) 06/17/24 15:59 Chloride 107 mmol/L (98-107) 06/17/24 15:59 Carbon Dioxide 31 mmol/L (22-29) H 06/17/24 15:59 Anion Gap 11.0 (5-19) 06/17/24 15:59 BUN 18 mg/dL (8-23) 06/17/24 15:59 Creatinine 1.1 mg/dL (0.7-1.2) 06/17/24 15:59 GFR Calculation Not Reportable 06/17/24 15:59 Glucose 94 mg/dL (65-115) 06/17/24 15:59 Calculated Osmolality 302 mOsm/kg (285-295) H 06/17/24 15:59 Calcium 9.1 mg/dL (8.5-10.5) 06/17/24 15:59 Total Bilirubin 0.5 mg/dL (0.15-1.2) 06/17/24 15:59 AST 18 U/L (0-40) 06/17/24 15:59 ALT 14 U/L (0-41) 06/17/24 15:59 Alkaline Phosphatase 98 U/L (40-130) 06/17/24 15:59 Troponin T Baseline 12 ng/L (0-15) 06/17/24 15:59 Troponin T 120 Minute 10.04 ng/L (0-15) 06/17/24 17:37 Delta Troponin T -1.96 ABS# (0-10) L 06/17/24 17:37 Total Protein 6.6 g/dL (6.6-8.7) 06/17/24 15:59 Albumin 4.3 g/dL (3.5-5.2) 06/17/24 15:59 Globulin 2.3 g/dL (1.3-4.6) 06/17/24 15:59 Urine Color Yellow (Yellow) 06/17/24 17:19 Urine Appearance Clear (CLEAR) 06/17/24 17:19 Urine pH 6.0 (5-7) 06/17/24 17:19 Ur Specific [place] 1.022 (1.005-1.030) 06/17/24 17:19 Urine Protein Negative (Negative) 06/17/24 17:19 Urine Glucose (UA) Negative (Normal) 06/17/24 17:19 Urine Ketones Trace (Negative) 06/17/24 17:19 Urine Blood Negative (Negative) 06/17/24 17:19 Urine Nitrate Negative (Negative) 06/17/24 17:19 Urine Bilirubin Negative (Negative) 06/17/24 17:19 Urine Urobilinogen 2.0 mg/dL (Negative) H 06/17/24 17:19 Ur Leukocyte Esterase Negative (Negative) 06/17/24 17:19 Urine RBC 0-2 /hpf (0-2) 06/17/24 17:19 Urine WBC 0-5 /hpf (0-5) 06/17/24 17:19 Ur Squamous Epith Cells 0-5 /hpf (0-5) 06/17/24 17:19 Calcium Oxalate Crystal 0-4 /hpf H 06/17/24 17:19 Amorphous Sediment Not Reportable 06/17/24 17:19 Urine Bacteria None seen /hpf (NONE) 06/17/24 17:19 Hyaline Casts 8.26 /lpf 06/17/24 17:19 All radiology interpretation(s) finalized by discharge Discharge Plan Discharge Patient Disposition: Admitted As Inpatient Admit Provider: Hannah Rodgers Clinical Impression: Unstable angina, Atrial fibrillation, Abnormal cardiovascular stress test, Atherosclerotic heart disease of [place] coronary artery with other forms of angina pectoris Condition: Stable Discharge Diet: Cardiac Discharge Activity: Increase activity as tolerated Coding Level of Care Code ED Infrastructure Security Architect for Pily Aguirre
[2024-06-17 16:09] LABS: Basophils % 0.3 %; Eosinophils # 0.1 10^3/uL (0.0-0.8); Eosinophils % 0.9 %; Hematocrit 42.9 % (37-53); Lymphocytes # 2.3 10^3/uL (0.8-4.8); Lymphocytes % 23.9 %; Mean Corpuscular HGB Conc 32.6 g/dL (30-55); Mean Corpuscular Hemoglobin 30.4 pg (27-33); Mean Corpuscular Volume 93.1 fl (82-101); Monocytes # 1.1 10^3/uL (0.2-0.9); Monocytes % 11.3 %; Neutrophils # 6.06 10^3/uL (1.8-7.7); Nucleated Red Blood Cells % 0 %; Platelet Count 208 10^3/cmm (157-399); Red Blood Count 4.61 10^6/uL (3.85-5.65); Red Cell Distribution Width 13.4 % (12.1-15.1); White Blood Count 9.63 10^3/uL (3.29-11.43)
[2024-06-17] MEDS: aspirin 81 mg Chew Tablet 324 MG PO (16:20)
[2024-06-17 16:27] LABS: Alanine Aminotransferase 14 U/L (0-41); Albumin Level 4.3 g/dL (3.5-5.2); Alkaline Phosphatase 98 U/L (40-130); Aspartate Amino Transferase 18 U/L (0-40); Blood Urea Nitrogen 18 mg/dL (8-23); Calcium 9.1 mg/dL (8.5-10.5); Carbon Dioxide 31 mmol/L (22-29); Chloride 107 mmol/L (98-107); Creatinine Clr Calc Pharmacy 55.1991; Globulin 2.3 g/dL (1.3-4.6); Glucose 94 mg/dL (65-115); Osmolality Calculated 302 mOsm/kg (285-295); Sodium 145 mmol/L (136-145); Total Bilirubin 0.5 mg/dL (0.15-1.2); Total Protein 6.6 g/dL (6.6-8.7)
[2024-06-17 16:38] LABS: Troponin(5th) Baseline 12 ng/L (0-15)
--- NOTE | 2024-06-17 17:46 | P.HP_ITS ---
Providers/Chief Complaint 2 Primary Care Provider: Francisco Carroll MD Chief Complaint: chest pain History of Present Illness Patient is an 79-year-old male presenting with tightness in the chest. The patient has a history of coronary artery disease, for which he has been medically managed. The patient recently had a stress test in December 2023 that showed evidence of ischemia in the distribution of the right coronary artery and potential circumflex artery involvement. He was subsequently prescribed isosorbide mononitrate at 30 mg daily, which initially provided relief but is now less effective presenting today with chief complaint of chest pain. Patient is stating that he started experiencing chest pain around 2 PM when he was at rest watching television. He describing his pain as pressure-like sensation radiating towards his right arm associate with shortness of breath and dizziness. His symptoms improved with use of sublingual nitroglycerin. Patient at the time my evaluation is chest pain-free, he is not complaining of any chest pain I have discontinued nitroglycerin drip ordered. Patient's creatinine is normal I will put him on therapeutic Lovenox on aspirin and Plavix. Dr. Carroll consulted. Review of Systems 2 Const: Denies: fever(s) Eyes: Denies: change in vision ENMT: Denies: throat pain Card: Reports: chest pain Resp: Reports: dyspnea GI: Denies: abdominal pain Neuro: Reports: dizziness Medications/Allergies Home Medications Medication Instructions Recorded Confirmed Last Taken Type alendronate 70 mg tablet (Fosamax) 70 mg PO Q7D 11/04/19 06/09/24 11/28/22 09:00 History cholecalciferol (vitamin D3) 25 1,000 unit PO DAILY 11/04/19 06/09/24 12/03/22 09:00 History mcg (1,000 unit) capsule diltiazem HCl 120 mg 120 mg PO DAILY 11/04/19 06/09/24 12/04/22 05:00 History capsule,extended release 24 hr (Cardizem CD) gabapentin 300 mg capsule 300 mg PO BEDTIME 11/04/19 06/09/24 12/03/22 21:00 History hydrochlorothiazide 25 mg tablet 25 mg PO DAILY 11/04/19 06/09/24 12/04/22 05:00 History metformin 500 mg tablet 250 mg PO BID 11/04/19 06/09/24 12/04/22 05:00 History rosuvastatin 20 mg tablet 10 mg PO DAILY 11/04/19 06/09/24 12/03/22 21:00 History tamsulosin 0.4 mg capsule 0.4 mg PO DAILY 11/04/19 06/09/24 12/03/22 21:00 History benzoyl peroxide 2.5 % topical 1 applic topical TID PRN Acne 12/21/20 06/09/24 06/18/22 History cream hydrocortisone 2.5 % topical cream 1 applic topical BID PRN SCALING 12/21/20 06/09/24 12/21/20 History ON FACE OR EARS hydroxyzine HCl 10 mg tablet 10 mg PO DAILY 12/21/20 06/09/24 12/03/22 21:00 History sodium fluoride 1.1 %-potassium 1 applic dental DAILY 12/21/20 06/09/24 06/20/22 22:00 History nitrate 5 % dental paste metoprolol succinate 50 mg 100 mg PO DAILY 11/13/21 06/09/24 12/04/22 05:00 History tablet,extended release 24 hr donepezil 5 mg tablet 10 mg PO DAILY 05/14/22 06/09/24 12/03/22 21:00 History hydrocodone 5 mg-acetaminophen 325 1 tab PO Q8H PRN pain (scale score 06/11/22 06/09/24 06/24/22 Rx mg tablet 7-10) #10 tabs clopidogrel 75 mg tablet (Plavix) 75 mg PO DAILY #30 tabs 12/17/22 06/09/24 Unknown Rx finasteride 5 mg tablet 5 mg PO DAILY 01/01/23 06/09/24 Unknown History nitroglycerin 0.4 mg sublingual 0.4 mg sublingual Q5M PRN chest 12/12/23 06/09/24 Unknown Rx tablet pain 30 days #30 tabs isosorbide mononitrate 30 mg 30 mg PO DAILY #90 tabs 01/07/24 06/09/24 Unknown Rx tablet,extended release 24 hr diclofenac sodium 50 mg 50 mg PO Q12H PRN pain #20 tabs 01/14/24 06/09/24 Unknown Rx tablet,delayed release Allergies Allergy/AdvReac Type Severity Reaction Status Date / Time atorvastatin Allergy ALGY-Rash Verified 06/09/24 10:44 metronidazole Allergy ALGY-Rash Verified 06/09/24 10:44 pravastatin Allergy Unknown Verified 06/09/24 10:44 PFSH Acute 2 PFSH: Medical History History of nonmelanoma skin cancer BPH NOS w ur obs/LUTS Diabetes mellitus Pacemaker Hyperlipidemia Type 2 diabetes mellitus Hypertension Ureteral stricture Elevated PSA (~08/13/20) Erectile dysfunction Tachy-brandon syndrome Atrial fibrillation Surgical History H/O hernia repair H/O spinal fusion History of knee replacement Family History Mother , 80's No problems noted. Father , 80's No problems noted. Other CAD (coronary artery disease) Cancer Diabetes Stroke Social History Smoking and tobacco/nicotine status: former use of tobacco/nicotine Alcohol intake: never Substance/Drug Use: never Household members: spouse Marital status: service: Yes Current occupational status: retired Vitals/I&O/Wt Last Vital Signs Temp 98.6 F 06/17/24 16:01 Pulse 77 06/17/24 16:01 Resp 16 06/17/24 16:01 BP 110/64 06/17/24 16:01 Pulse Ox 93 06/17/24 16:01 O2 Del Method Room Air 06/17/24 16:01 Weight last 48 hrs Weight 83.007 kg Physical Exam 2 Narrative: Paced rhythm Currently awake and alert No active chest pain S1, S2 at the bedside On room air Pleasant and cooperative GCS 15 Appears stated age Euvolemic Data 06/17/24 15:59 06/17/24 15:59 A&P Assessment and plan (1) Chest pain: Qualifiers: Chest pain type: other chest pain Qualified Code(s): R07.89 - Other chest pain (2) Unstable angina: (3) Pacemaker: (4) Atrial fibrillation: Qualifiers: Atrial fibrillation type: longstanding persistent Qualified Code(s): I 48.11 - Longstanding persistent atrial fibrillation (5) Atherosclerotic heart disease of tangirnaq coronary artery with other forms of angina pectoris: Plan Unstable angina Established atherosclerotic coronary disease Positive stress test To keep patient n.p.o. from midnight Dr. Carroll consulted Patient will need an angiogram Currently on ACS protocol however troponins are not significantly high Patient symptoms are typical of angina Currently on heparin drip continue dual antiplatelet therapy History of A-fib: Continue AV katherine blocking agent Patient has a pacemaker for tachybradycardia syndrome Not on Eliquis secondary to history of bleed Only take Plavix Considering positive stress test in RCA territory and drop in blood pressure I would not give him more nitroglycerin at this point he is chest pain free I will reduce his AV katherine blocking agent down to only metoprolol for now hold Cardizem, hydrochlorothiazide, Imdur and use morphine for chest pain if he gets any recurrent symptoms overnight Dyslipidemia: Continue statins Full code N.p.o. after midnight Insulin with sliding scale on consistent carb diet until midnight then n.p.o. DVT prophylaxis covered with heparin Attestations 2 Medical Necessity Statement*: Anticipating discharge within 48 hours Diagnoses Other chest pain R07.89 Chest pain type: other chest pain Unstable angina I20.0 Pacemaker Z95.0 Longstanding persistent atrial fibrillation I48.11 Atrial fibrillation type: longstanding persistent Atherosclerotic heart disease of tangirnaq coronary artery with other forms of angina pectoris I25.118
--- NOTE | 2024-06-17 17:56 | ECG_ITS ---
[facility] Date: 2024-06-17 Pat Name: Roverto Crawley Department: Room: Gender: Male Digital Cartographer: : 1945 Requested By: Pastor Mondragon Order Number: [id number] Rogelio MD: Francisco Carroll M.D. Measurements Intervals [place] Rate: 60 P: 104 LA: 203 QRS: -39 QRSD: 100 T: 13 QT: 408 QTc: 408 Interpretive Statements ELECTRONIC ATRIAL PACEMAKER LEFT AXIS DEVIATION [QRS AXIS < -30] Compared to ECG 06/17/2024 15:58:48 Left-axis deviation now present Ventricular-paced complex(es) or rhythm no longer present Electronically Signed On 06-21-2024 21:06:06 ORNAMENT STAPLER by Francisco Carroll M.D. [id number]
[2024-06-17 18:02] LABS: Bilirubin Urine Negative (Negative); Blood Urine Negative (Negative); Glucose Urine UA Negative (Normal); Ketones Urine Trace (Negative); Leukocyte Esterase Urine Negative (Negative); Nitrate Urine Negative (Negative); Protein Urine Negative (Negative); Specific Gravity, Urine 1.022 (1.005-1.030); Urine Appearance Clear (CLEAR); Urine Color Yellow (Yellow)
[2024-06-17 18:07] LABS: Add Urine Microscopic? YES; Bacteria Urine None Seen /hpf; Hyaline Casts Urine 8.26 /lpf; RBC Urine 0-2 /hpf (0-2); Squamous Epithelial Cell Urine 0-5 /hpf (0-5); WBC Urine 0-5 /hpf (0-5)
[2024-06-17 18:17] LABS: UA Slide Review UA Slide Review Perf
[2024-06-17 18:18] LABS: Add Urine Culture? No; Calcium Oxalate Crystals Urine 0-4 /hpf
[2024-06-17 18:19] LABS: Troponin 5 2HR 10.04 ng/L (0-15); Troponin 5 2HR Delta -1.96 ABS# (0-10)
--- NOTE | 2024-06-17 19:02 | PC.NURSE ---
This nurse assumed care at shift change from Christi MORA.
--- NOTE | 2024-06-17 20:37 | USCV_ITS ---
Roverto Crawley Age: 79 Gender: M : 1945 Exam Date: 06/17/2024 20:17 Ordering Phys: Modesta Luke MD Technologist: ARJNU Exam Location: [facility] [place] Indication: UA hx pacer 2018 BP: 130 / 78 HR: 59 Rhythm: Sinus bradycardia Technical Quality: Adequate MEASUREMENTS (Male / Female) Normal Values 2D ECHO LV Diastolic Diameter PLAX 4.2 cm 4.2 - 5.9 / 3.9 - 5.3 cm IVS Diastolic Thickness 1.6 cm 0.6 - 1.0 / 0.6 - 0.9 cm IVS Systolic Thickness 2.1 cm LVPW Diastolic Thickness 1.2 cm 0.6 - 1.0 / 0.6 - 0.9 cm LVPW Systolic Thickness 1.4 cm LVOT Diameter 2.4 cm LV Ejection Fraction 2D Teich 60.9 % LV Ejection Fraction MOD 4C 73.0 % LV Ejection Fraction MOD 2C 56.3 % LV Ejection Fraction 2C AL 55.6 % LA Diameter 3.2 cm Aorta at Sinotubular Diameter 3.1 cm IVC Diameter 1.8 cm M-MODE LA Ao Ratio MM 1.2 AV Cusp Separation MM 2.0 cm DOPPLER AV Peak Velocity 155.0 cm/s LVOT Peak Velocity 105.0 cm/s AV Area Cont Eq vti 3.6 cm squared AV Area Cont Eq pk 3.1 cm squared MV Peak Velocity 126.0 cm/s MV Area PHT 2.7 cm squared Mitral E to A Ratio 0.9 TR Peak Velocity 223.0 cm/s TR Peak Gradient 19.9 mmHg TV Peak E Velocity 65.0 cm/s Right Atrial Pressure 3.0 mmHg Pulmonary Artery Systolic Pressu 22.9 mmHg PV Peak Velocity 72.0 cm/s FINDINGS Left Ventricle Normal left ventricular size, systolic function and wall thickness, with no regional wall motion abnormalities. Left ventricular ejection fraction is estimated at 60 %. Grade I/IV diastolic dysfunction (abnormal relaxation filling pattern), normal to mildly elevated filling pressures. Right Ventricle Catheter/pacemaker wire visualized in the right ventricle. Right Atrium The right atrium is normal in size. Left Atrium The left atrium is normal in size. Mitral Valve Structurally normal mitral valve without significant stenosis or prolapse. There is no mitral regurgitation. Aortic Valve Structurally normal aortic valve without significant sclerosis or stenosis. There is no aortic regurgitation. Tricuspid Valve Structurally normal tricuspid valve without significant stenosis or regurgitation. Pulmonary artery systolic pressure is normal. Pulmonic Valve Structurally normal pulmonic valve without significant stenosis. There is no pulmonic regurgitation. Pericardium Normal pericardium without effusion. Aorta Normal ascending aorta dimension. IVC The inferior vena cava appears normal. CONCLUSIONS Normal left ventricular size, systolic function and wall thickness, with no regional wall motion abnormalities. Left ventricular ejection fraction is estimated at 60 %. Grade I/IV diastolic dysfunction (abnormal relaxation filling pattern), normal to mildly elevated filling pressures. Catheter/pacemaker wire visualized in the right ventricle. There is no pericardial effusion. Pulmonary artery systolic pressure is within normal limits. Right atrial pressure is around 5 mm of mercury. Modesta Azul MD (Electronically Signed) Final Date: 18 June 2024 20:53 S
[2024-06-17 21:01] LABS: Glucose Point of Care 98 mg/dL (70-110)
--- NOTE | 2024-06-17 22:00 | ECG_ITS ---
[facility] Date: 2024-06-17 Pat Name: Roverto Crawley Department: Room: 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 Measurements Intervals [place] Rate: 63 P: 87 AL: 180 QRS: -79 QRSD: 145 T: 81 QT: 456 QTc: 470 Interpretive Statements ELECTRONIC ATRIAL PACEMAKER ELECTRONIC VENTRICULAR PACEMAKER ABNORMAL RHYTHM ECG Compared to ECG 06/17/2024 17:56:14 Left-axis deviation no longer present Electronically Signed On 06-21-2024 21:07:50 RECRUITING COORDINATOR by Francisco Carroll M.D. [id number]
[2024-06-17] MEDS: enoxaparin 100 mg/mL Syringe 90 MG SUBCUT (22:15)
[2024-06-17] MEDS: pantoprazole 40 mg SDV IVP (22:15)
[2024-06-17 22:32] LABS: Troponin 5 6HR 10.71 ng/L (0-15)
[2024-06-17 22:38] LABS: Troponin 5 6HR Delta -1.29 ng/L (0-12)
--- NOTE | 2024-06-17 22:53 | P.CONIM_ITS ---
Providers/Reason For Consult 2 Consulting Physician/Specialty*: KINGSLEY Carroll MD/cardiology Reason for Consult*: Unstable angina Requesting Physician: Dr. Rodgers Attending Physician: Hannah Rodgers MD Primary Care Provider: Francisco Carroll MD History of Present Illness History of Present Illness Roverto Crawley is a 79 year old male with a history of atherosclerotic heart disease and a recent abnormal Myocardial perfusion imaging, he is presenting with complaints of increasing episodes of chest pain since this afternoon. Apparently the patient has been in his baseline state of health up until this afternoon when he had episodes of chest pain starting around 2:00. He had a sharp/heavy pain in the mid substernal region, with intensity of 10/10, each episodes lasting for 1 to 2 minutes. These episodes were occurring at 5 minutes interval. After the third episode, he is took 1 sublingual nitro. The pain somewhat eased off. Since he started having the pain again, an ambulance was called in. In the ambulance, he was given 2 more sublingual nitro. By the time he came to the emergency room, most of the severe chest pain have subsided. He continues to have the tight feeling in the chest. He had the chest pain radiated to the right arm couple of times. At the time of my examination, patient is still having some tight feeling in the chest. But no sharp chest pains. He has some amount of shortness of breath. No orthopnea PND. No fever, chills or cough. No other specific complaints. This patient had a cardiac catheterization in December 2022. At that time, he had a high-grade lesion in the first diagonal branch which was intervened. Moderate disease was noted in the circumflex artery and mild disease in the other vessels. The LV ejection fraction was normal. LVEDP was 22 mmHg. He had the most recent Myocardial perfusion imaging in December of this year. The findings are as follows. This patient was having increasing episodes of chest pain lately. He is scheduled for an outpatient cardiac catheterization. But because of this acute worsening of chest pain, he has decided to come to the hospital He is known to have intermittent atrial fibrillation. He was on anticoagulation in the past. Because of the bleeding complications, it was discontinued. Review of Systems 2 Narrative: CONSTITUTIONAL: No fever or chills. [] EYES: No blurring of vision or other visual disturbances lately. [] ENT: No hoarseness of voice, auditory disturbances or sore throat. CARDIOVASCULAR: As mentioned above. RESPIRATORY: No significant cough. GASTROINTESTINAL: No hematemesis or melena. GENITOURINARY: No dysuria or hematuria. INTEGUMENTARY: No skin rashes or history of skin cancer. NEURO: No transient ischemic attacks or amaurosis. PSYCHIATRIC: No history of psychosis or major depression. HEMATOLOGIC: No bleeding disorders or significant anemia. ENDOCRINE: No history of polyuria or polydipsia. MUSCULOSKELETAL: No recent joint pain or swelling. ALLERGY/IMMUNOLOGY: As mentioned above. Medications/Allergies Home Medications Medication Instructions Recorded Confirmed Last Taken Type alendronate 70 mg tablet (Fosamax) 70 mg PO Q7D 11/04/19 06/09/24 11/28/22 09:00 History cholecalciferol (vitamin D3) 25 1,000 unit PO DAILY 11/04/19 06/09/24 12/03/22 09:00 History mcg (1,000 unit) capsule diltiazem HCl 120 mg 120 mg PO DAILY 11/04/19 06/09/24 12/04/22 05:00 History capsule,extended release 24 hr (Cardizem CD) gabapentin 300 mg capsule 300 mg PO BEDTIME 11/04/19 06/09/24 12/03/22 21:00 History hydrochlorothiazide 25 mg tablet 25 mg PO DAILY 11/04/19 06/09/24 12/04/22 05:00 History metformin 500 mg tablet 250 mg PO BID 11/04/19 06/09/24 12/04/22 05:00 History rosuvastatin 20 mg tablet 10 mg PO DAILY 11/04/19 06/09/24 12/03/22 21:00 History tamsulosin 0.4 mg capsule 0.4 mg PO DAILY 11/04/19 06/09/24 12/03/22 21:00 History benzoyl peroxide 2.5 % topical 1 applic topical TID PRN Acne 12/21/20 06/09/24 06/18/22 History cream hydrocortisone 2.5 % topical cream 1 applic topical BID PRN SCALING 12/21/20 06/09/24 12/21/20 History ON FACE OR EARS hydroxyzine HCl 10 mg tablet 10 mg PO DAILY 12/21/20 06/09/24 12/03/22 21:00 History sodium fluoride 1.1 %-potassium 1 applic dental DAILY 12/21/20 06/09/24 06/20/22 22:00 History nitrate 5 % dental paste metoprolol succinate 50 mg 100 mg PO DAILY 11/13/21 06/09/24 12/04/22 05:00 History tablet,extended release 24 hr donepezil 5 mg tablet 10 mg PO DAILY 05/14/22 06/09/24 12/03/22 21:00 History hydrocodone 5 mg-acetaminophen 325 1 tab PO Q8H PRN pain (scale score 06/11/22 06/09/24 06/24/22 Rx mg tablet 7-10) #10 tabs clopidogrel 75 mg tablet (Plavix) 75 mg PO DAILY #30 tabs 12/17/22 06/09/24 Unknown Rx finasteride 5 mg tablet 5 mg PO DAILY 01/01/23 06/09/24 Unknown History nitroglycerin 0.4 mg sublingual 0.4 mg sublingual Q5M PRN chest 12/12/23 06/09/24 Unknown Rx tablet pain 30 days #30 tabs isosorbide mononitrate 30 mg 30 mg PO DAILY #90 tabs 01/07/24 06/09/24 Unknown Rx tablet,extended release 24 hr diclofenac sodium 50 mg 50 mg PO Q12H PRN pain #20 tabs 01/14/24 06/09/24 Unknown Rx tablet,delayed release Allergies Allergy/AdvReac Type Severity Reaction Status Date / Time atorvastatin Allergy ALGY-Rash Verified 06/09/24 10:44 metronidazole Allergy ALGY-Rash Verified 06/09/24 10:44 pravastatin Allergy Unknown Verified 06/09/24 10:44 Current Medications Generic Name Dose Route Start Last Admin Trade Name Freq PRN Reason Stop Dose Admin Enoxaparin Sodium 90 mg 06/17/24 21:15 06/17/24 22:15 Enoxaparin 100 Mg/Ml Syringe 1 mg/kg (80 mg) 90 mg SUBCUT Administration Q12H IVETH Pantoprazole Sodium 40 mg 06/17/24 21:00 06/17/24 22:15 Pantoprazole 40 Mg Sdv IVP 40 mg BID IVETH Administration PFSH Acute 2 PFSH: Medical History History of nonmelanoma skin cancer BPH NOS w ur obs/LUTS Diabetes mellitus Pacemaker Hyperlipidemia Type 2 diabetes mellitus Hypertension Ureteral stricture Elevated PSA (~08/13/20) Erectile dysfunction Tachy-brandon syndrome Atrial fibrillation Surgical History H/O hernia repair H/O spinal fusion History of knee replacement Family History Mother , 80's No problems noted. Father , 80's No problems noted. Other CAD (coronary artery disease) Cancer Diabetes Stroke Social History Smoking and tobacco/nicotine status: former use of tobacco/nicotine Alcohol intake: never Substance/Drug Use: never Household members: spouse Marital status: service: Yes Current occupational status: retired Vitals/I&O/Wt Last Vital Signs Temp 98.6 F 06/17/24 16:01 Pulse 58 L 06/17/24 20:51 Resp 17 06/17/24 19:30 BP 130/78 06/17/24 20:51 Pulse Ox 96 06/17/24 20:51 O2 Del Method Room Air 06/17/24 19:30 Weight last 48 hrs Weight 195 lb 1.745 oz Weight 183 lb Physical Exam 2 Narrative: GENERAL: The patient is alert and oriented times three. Not in any acute distress. HEENT: No significant pallor, icterus or lymphadenopathy.Oral cavity: There are no mucous membrane lesions. NECK: Trachea appears to be central. No masses noted. No JVD or thyromegaly appreciated. RESPIRATORY: Chest is symmetrical. No intercostals muscle retraction or any accessory muscle activation. There is no chest wall tenderness. Breath sounds are heard bilaterally. No rales or rhonchi heard. No evidence of any consolidation. BREASTS: Deferred. HEART: The heart sounds are normal. No S3 or S4. Short systolic murmur the left sternal border. No diastolic murmurs.. No pericardial rub ABDOMEN: No vessel pulsations or distention. No tenderness. No organomegaly appreciated. Bowel sounds are normally heard. : Deferred. RECTAL: Deferred. LYMPHATIC: No lymphadenopathy noted in the neck. EXTREMITIES: No edema or cyanosis. No clubbing. MUSCULOSKELETAL: No acute joint deformities or swelling SKIN: There are no significant rashes or ecchymosis NEUROPSYCHIATRIC: The patient is alert and oriented x3. Appears to be in a good mood. No tremors or rigidity noted. Data 06/17/24 15:59 06/17/24 15:59 Other Labs: Laboratory Last Values WBC 9.63 10^3/uL (3.29-11.43) 06/17/24 15:59 RBC 4.61 10^6/uL (3.85-5.65) 06/17/24 15:59 Hgb 14.00 g/dL (11.27-16.99) 06/17/24 15:59 Hct 42.9 % (37-53) 06/17/24 15:59 MCV 93.1 fl (82-101) 06/17/24 15:59 MCH 30.4 pg (27-33) 06/17/24 15:59 MCHC 32.6 g/dL (30-55) 06/17/24 15:59 RDW 13.4 % (12.1-15.1) 06/17/24 15:59 Plt Count 208 10^3/cmm (157-399) 06/17/24 15:59 MPV 10.0 fL (7.4-10.4) 06/17/24 15:59 Neut % (Auto) 63.0 % 06/17/24 15:59 Lymph % (Auto) 23.9 % 06/17/24 15:59 [place] % (Auto) 11.3 % 06/17/24 15:59 Eos % (Auto) 0.9 % 06/17/24 15:59 Baso % (Auto) 0.3 % 06/17/24 15:59 Neut # (Auto) 6.06 10^3/uL (1.8-7.7) 06/17/24 15:59 Lymph # (Auto) 2.3 10^3/uL (0.8-4.8) 06/17/24 15:59 [place] # (Auto) 1.1 10^3/uL (0.2-0.9) H 06/17/24 15:59 Eos # (Auto) 0.1 10^3/uL (0.0-0.8) 06/17/24 15:59 Baso # (Auto) 0.0 10^3/uL (0.0-0.1) 06/17/24 15:59 Nucleated RBC % (auto) 0 % 06/17/24 15:59 Nucleated RBCs # 0.0 /100WBC 06/17/24 15:59 Sodium 145 mmol/L (136-145) 06/17/24 15:59 Potassium 4.0 mmol/L (3.5-5.1) 06/17/24 15:59 Chloride 107 mmol/L (98-107) 06/17/24 15:59 Carbon Dioxide 31 mmol/L (22-29) H 06/17/24 15:59 Anion Gap 11.0 (5-19) 06/17/24 15:59 BUN 18 mg/dL (8-23) 06/17/24 15:59 Creatinine 1.1 mg/dL (0.7-1.2) 06/17/24 15:59 GFR Calculation Not Reportable 06/17/24 15:59 Glucose 94 mg/dL (65-115) 06/17/24 15:59 POC Glucose 98 mg/dL (70-110) 06/17/24 20:57 Calculated Osmolality 302 mOsm/kg (285-295) H 06/17/24 15:59 Calcium 9.1 mg/dL (8.5-10.5) 06/17/24 15:59 Total Bilirubin 0.5 mg/dL (0.15-1.2) 06/17/24 15:59 AST 18 U/L (0-40) 06/17/24 15:59 ALT 14 U/L (0-41) 06/17/24 15:59 Alkaline Phosphatase 98 U/L (40-130) 06/17/24 15:59 Troponin T Baseline 12 ng/L (0-15) 06/17/24 15:59 Troponin T 120 Minute 10.04 ng/L (0-15) 06/17/24 17:37 Delta Troponin T -1.96 ABS# (0-10) L 06/17/24 17:37 Troponin T Hi Sens 6Hr 10.71 ng/L (0-15) 06/17/24 22:02 Troponin T Hi Sens 6Hr Delta -1.29 ng/L (0-12) L 06/17/24 22:02 Total Protein 6.6 g/dL (6.6-8.7) 06/17/24 15:59 Albumin 4.3 g/dL (3.5-5.2) 06/17/24 15:59 Globulin 2.3 g/dL (1.3-4.6) 06/17/24 15:59 Urine Color Yellow (Yellow) 06/17/24 17:19 Urine Appearance Clear (CLEAR) 06/17/24 17:19 Urine pH 6.0 (5-7) 06/17/24 17:19 Ur Specific [place] 1.022 (1.005-1.030) 06/17/24 17:19 Urine Protein Negative (Negative) 06/17/24 17:19 Urine Glucose (UA) Negative (Normal) 06/17/24 17:19 Urine Ketones Trace (Negative) 06/17/24 17:19 Urine Blood Negative (Negative) 06/17/24 17:19 Urine Nitrate Negative (Negative) 06/17/24 17:19 Urine Bilirubin Negative (Negative) 06/17/24 17:19 Urine Urobilinogen 2.0 mg/dL (Negative) H 06/17/24 17:19 Ur Leukocyte Esterase Negative (Negative) 06/17/24 17:19 Urine RBC 0-2 /hpf (0-2) 06/17/24 17:19 Urine WBC 0-5 /hpf (0-5) 06/17/24 17:19 Ur Squamous Epith Cells 0-5 /hpf (0-5) 06/17/24 17:19 Calcium Oxalate Crystal 0-4 /hpf H 06/17/24 17:19 Amorphous Sediment Not Reportable 06/17/24 17:19 Urine Bacteria None seen /hpf (NONE) 06/17/24 17:19 Hyaline Casts 8.26 /lpf 06/17/24 17:19 Other data: EKG from today A paced, V sensed rhythm. No acute ST-T changes Myocardial perfusion imaging on 12/18/2023 1. Myocardial perfusion imaging revealing moderate area of minimal to moderately decreased tracer uptake involving the inferior, inferolateral and inferoseptal regions with some reversibility, suggesting myocardial scarring with ischemia in the distribution of the right coronary artery/circumflex artery. The elevated transient ischemic dilatation ratio also may suggest endocardial ischemia. 2. Normal LV ejection fraction of 90%. 3. LV wall motion analysis revealing no gross wall motion abnormalities. 4. Normal LV volume 5. Comparison with the previous study from 09/14/2022 is difficult, because the differences in technical quality Cardiac catheterization 12-25 2. 1.? Normal left main. 2.? Mild diffuse intimal irregularities in the left and descending artery.? High-grade lesion in the mid segment of the first diagonal branch.? It appears to be a small to medium caliber vessel. 3. Moderate eccentric narrowing in the mid circumflex artery. 4.? Mild diffuse disease in the other vessels. 5.? Normal LV ejection fraction of 65%.? LVEDP of 22 mmHg. A&P Assessment and plan (1) Unstable angina: Patient symptoms suggestive of unstable angina. The EKG is unremarkable. At this point, it would be appropriate to treat him with IV heparin, p.o. Plavix, aspirin and other current medications. (2) Abnormal cardiovascular stress test: The abdomen Perfusion scan is suggestive of ischemia in the distribution of the right coronary artery/circumflex artery. For further evaluation of the patient's symptoms, he requires a cardiac catheterization. (3) Atrial fibrillation: Currently he is in a regular rhythm. Advised to continue on the current medication. He had a bleeding complication with the oral anticoagulants in the past. Qualifiers: Atrial fibrillation type: longstanding persistent Qualified Code(s): I 48.11 - Longstanding persistent atrial fibrillation (4) Hypertension: Blood pressure is elevated. Will try to optimize the antihypertensive medications. Qualifiers: Hypertension type: essential hypertension Qualified Code(s): I10 - Essential (primary) hypertension (5) Hyperlipidemia: May continue on the current medications. Qualifiers: Hyperlipidemia type: mixed hyperlipidemia Qualified Code(s): E78.2 - Mixed hyperlipidemia (6) Pacemaker: Latest pacemaker interrogation revealed normal pacing function. Continue on the current management. Plan For further evaluation of the patient's symptoms, he requires a cardiac catheterization. He may schedule this sometime tomorrow. Based on the results of the above tests and the patient's clinical progress, further recommendations will be made. Thank you for the opportunity to evaluate this patient and make these recommendations Coding Level of Care Code 20879 Diagnoses Unstable angina I20.0 Abnormal cardiovascular stress test R94.39 Longstanding persistent atrial fibrillation I48.11 Atrial fibrillation type: longstanding persistent Essential hypertension I10 Hypertension type: essential hypertension Mixed hyperlipidemia E78.2 Hyperlipidemia type: mixed hyperlipidemia Pacemaker Z95.0
[2024-06-18] VITALS (45 sets, daily range): BP systolic 124–176; BP diastolic 63–111; PULSE 60–85; RESP 10–30; O2SAT 93–97
[2024-06-18 05:12] LABS: Basophils % 0.2 %; Eosinophils # 0.1 10^3/uL (0.0-0.8); Eosinophils % 0.9 %; Hematocrit 42.7 % (37-53); Lymphocytes # 2.1 10^3/uL (0.8-4.8); Lymphocytes % 26.3 %; Mean Corpuscular HGB Conc 32.6 g/dL (30-55); Mean Corpuscular Hemoglobin 30.4 pg (27-33); Mean Corpuscular Volume 93.4 fl (82-101); Monocytes % 12.2 %; Nucleated Red Blood Cells % 0 %; Platelet Count 211 10^3/cmm (157-399); Red Blood Count 4.57 10^6/uL (3.85-5.65); Red Cell Distribution Width 13.6 % (12.1-15.1); White Blood Count 8.01 10^3/uL (3.29-11.43)
[2024-06-18 05:37] LABS: Blood Urea Nitrogen 16 mg/dL (8-23); Calcium 8.8 mg/dL (8.5-10.5); Carbon Dioxide 25 mmol/L (22-29); Chloride 110 mmol/L (98-107); Creatinine Clr Calc Pharmacy 78.1875; Glucose 90 mg/dL (65-115); Magnesium 2.1 mg/dL (1.7-2.3); Osmolality Calculated 299 mOsm/kg (285-295); Sodium 144 mmol/L (136-145)
[2024-06-18 05:38] LABS: Anion Gap 13.1 (5-19); Potassium 4.1 mmol/L (3.5-5.1)
[2024-06-18] MEDS: aspirin 81 mg EC Tablet PO (08:05)
[2024-06-18] MEDS: metoprolol succinate ER (24 HR) 50 mg Tablet 100 MG PO (08:05)
[2024-06-18] MEDS: pantoprazole 40 mg SDV IVP ×2 (08:05→18:04)
[2024-06-18] MEDS: clopidogrel 75 mg Tablet PO (08:06)
[2024-06-18 08:25] LABS: Glucose Point of Care 90 mg/dL (70-110)
--- NOTE | 2024-06-18 08:31 | PC.PHAR ---
[facility] is [facility] but carries a med list in his wallet.
--- NOTE | 2024-06-18 09:26 | PM.PN ---
Subjective Subjective: The patient is still having some chest tightness/heaviness. No palpitations. No new arrhythmias. Cardiac enzymes are negative so far for myocardial injury. Medications: Medication Review Details: Current Medications Acetaminophen (Acetaminophen 500 Mg Tablet) 500 mg PO Q4H PRN PRN Reason: fever Hydrocodone Bitart/Acetaminophen (Hydrocodone-Acetaminophen 5-325 Mg Tablet) 1 tab PO Q8H PRN PRN Reason: pain (scale score 7-10) Albuterol/Ipratropium (Ipratropium-Albuterol 3 Ml Neb) 3 ml INHALATION Q6H PRN PRN Reason: SHORTNESS OF BREATH Aspirin (Aspirin 81 Mg Ec Tablet) 81 mg PO DAILY [facility] Last Admin: 06/18/24 08:05 Dose: 81 mg Clopidogrel Bisulfate (Clopidogrel 75 Mg Tablet) 75 mg PO DAILY [facility] Last Admin: 06/18/24 08:06 Dose: 75 mg Enoxaparin Sodium (Enoxaparin 100 Mg/Ml Syringe) 90 mg 1 mg/kg (80 mg) SUBCUT Q12H [facility] Last Admin: 06/17/24 22:15 Dose: 90 mg Finasteride (Finasteride 5 Mg Tablet) 5 mg PO DAILY [facility] Glucagon (Glucagon 1 Mg/Ml Kit 1 Ml) 1 mg IM ONCE PRN; Protocol PRN Reason: Adult Acute Hypoglycemia Nursing Prot. Glucagon (Glucagon 1 Mg/Ml Kit 1 Ml) 1 mg IM ONCE PRN; Protocol PRN Reason: Adult Acute Hypoglycemia Nursing Prot. Dextrose (D5w) 500 mls @ 0 mls/hr IV ONCE PRN; Protocol PRN Reason: Adult Acute Hypoglycemia Prot Dextrose (D10w) 125 mls @ 750 mls/hr IV PRN PRN; Protocol PRN Reason: Adult Acute Hypoglycemia Nursing Protocol Dextrose (D10w) 250 mls @ 1,000 mls/hr IV PRN PRN; Protocol PRN Reason: Adult Acute Hypoglycemia Nursing Protocol Dextrose (D5w) 500 mls @ 0 mls/hr IV ONCE PRN; Protocol PRN Reason: Adult Acute Hypoglycemia Prot Dextrose (D10w) 125 mls @ 750 mls/hr IV PRN PRN; Protocol PRN Reason: Adult Acute Hypoglycemia Nursing Protocol Dextrose (D10w) 250 mls @ 1,000 mls/hr IV PRN PRN; Protocol PRN Reason: Adult Acute Hypoglycemia Nursing Protocol Insulin Human Lispro (Insulin Lispro 100 Unit/1 Ml) 0 unit SUBCUT TIDWM [facility]; Protocol Metoprolol Succinate (Metoprolol Succinate Er (24 Hr) 50 Mg Tablet) 100 mg PO DAILY [facility] Last Admin: 06/18/24 08:05 Dose: 100 mg Ondansetron HCl (Ondansetron 2 Mg/Ml Sdv 2 Ml) 4 mg IVP Q6H PRN PRN Reason: NAUSEA AND VOMITING Pantoprazole Sodium (Pantoprazole 40 Mg Sdv) 40 mg IVP BID [facility] Last Admin: 06/18/24 08:05 Dose: 40 mg Pharmacy Profile Note (Formulary Statin) 1 each PO DAILY [facility] Tamsulosin HCl (Tamsulosin 0.4 Mg Capsule) 0.4 mg PO DAILY [facility] Vitals/I&O/Wt Last Vital Signs Temp 98.6 F 06/17/24 16:01 Pulse 70 06/18/24 06:00 Resp 17 06/17/24 19:30 BP 130/78 06/17/24 20:51 Pulse Ox 96 06/17/24 20:51 O2 Del Method Room Air 06/17/24 20:47 06/17/24 06/18/24 06/18/24 22:59 06:59 14:59 Intake Total 480 / 480 Output Total 800 / 800 600 / 1400 Balance -320 / -320 -600 / -920 Weight last 48 hrs Weight 195 lb Weight 195 lb 1.745 oz Weight 183 lb Physical Exam Narrative: GENERAL: The patient is alert and oriented times three. Not in any acute distress. HEENT: No significant pallor, icterus or lymphadenopathy.Oral cavity: There are no mucous membrane lesions. NECK: Trachea appears to be central. No masses noted. No JVD or thyromegaly appreciated. RESPIRATORY: Chest is symmetrical. No intercostals muscle retraction or any accessory muscle activation. There is no chest wall tenderness. Breath sounds are heard bilaterally. No rales or rhonchi heard. No evidence of any consolidation. BREASTS: Deferred. HEART: The heart sounds are normal. No S3 or S4. Short systolic murmur the left sternal border. No diastolic murmurs.. No pericardial rub ABDOMEN: No vessel pulsations or distention. No tenderness. No organomegaly appreciated. Bowel sounds are normally heard. : Deferred. RECTAL: Deferred. LYMPHATIC: No lymphadenopathy noted in the neck. EXTREMITIES: No edema or cyanosis. No clubbing. MUSCULOSKELETAL: No acute joint deformities or swelling SKIN: There are no significant rashes or ecchymosis NEUROPSYCHIATRIC: The patient is alert and oriented x3. Appears to be in a good mood. No tremors or rigidity noted. Data 06/18/24 04:29 06/18/24 04:29 Other Labs: Laboratory Last Values WBC 8.01 10^3/uL (3.29-11.43) 06/18/24 04:29 RBC 4.57 10^6/uL (3.85-5.65) 06/18/24 04:29 Hgb 13.90 g/dL (11.27-16.99) 06/18/24 04:29 Hct 42.7 % (37-53) 06/18/24 04:29 MCV 93.4 fl (82-101) 06/18/24 04:29 MCH 30.4 pg (27-33) 06/18/24 04:29 MCHC 32.6 g/dL (30-55) 06/18/24 04:29 RDW 13.6 % (12.1-15.1) 06/18/24 04:29 Plt Count 211 10^3/cmm (157-399) 06/18/24 04:29 MPV 11.0 fL (7.4-10.4) H 06/18/24 04:29 Neut % (Auto) 60.0 % 06/18/24 04:29 Lymph % (Auto) 26.3 % 06/18/24 04:29 [place] % (Auto) 12.2 % 06/18/24 04:29 Eos % (Auto) 0.9 % 06/18/24 04:29 Baso % (Auto) 0.2 % 06/18/24 04:29 Neut # (Auto) 4.80 10^3/uL (1.8-7.7) 06/18/24 04:29 Lymph # (Auto) 2.1 10^3/uL (0.8-4.8) 06/18/24 04:29 [place] # (Auto) 1.0 10^3/uL (0.2-0.9) H 06/18/24 04:29 Eos # (Auto) 0.1 10^3/uL (0.0-0.8) 06/18/24 04:29 Baso # (Auto) 0.0 10^3/uL (0.0-0.1) 06/18/24 04:29 Nucleated RBC % (auto) 0 % 06/18/24 04:29 Nucleated RBCs # 0.0 /100WBC 06/18/24 04:29 Sodium 144 mmol/L (136-145) 06/18/24 04:29 Potassium 4.1 mmol/L (3.5-5.1) 06/18/24 04:29 Chloride 110 mmol/L (98-107) H 06/18/24 04:29 Carbon Dioxide 25 mmol/L (22-29) 06/18/24 04:29 Anion Gap 13.1 (5-19) 06/18/24 04:29 BUN 16 mg/dL (8-23) 06/18/24 04:29 Creatinine 0.7 mg/dL (0.7-1.2) 06/18/24 04:29 GFR Calculation Not Reportable 06/18/24 04:29 Glucose 90 mg/dL (65-115) 06/18/24 04:29 POC Glucose 90 mg/dL (70-110) 06/18/24 08:21 Calculated Osmolality 299 mOsm/kg (285-295) H 06/18/24 04:29 Calcium 8.8 mg/dL (8.5-10.5) 06/18/24 04:29 Magnesium 2.1 mg/dL (1.7-2.3) 06/18/24 04:29 Total Bilirubin 0.5 mg/dL (0.15-1.2) 06/17/24 15:59 AST 18 U/L (0-40) 06/17/24 15:59 ALT 14 U/L (0-41) 06/17/24 15:59 Alkaline Phosphatase 98 U/L (40-130) 06/17/24 15:59 Troponin T Baseline 12 ng/L (0-15) 06/17/24 15:59 Troponin T 120 Minute 10.04 ng/L (0-15) 06/17/24 17:37 Delta Troponin T -1.96 ABS# (0-10) L 06/17/24 17:37 Troponin T Hi Sens 6Hr 10.71 ng/L (0-15) 06/17/24 22:02 Troponin T Hi Sens 6Hr Delta -1.29 ng/L (0-12) L 06/17/24 22:02 Total Protein 6.6 g/dL (6.6-8.7) 06/17/24 15:59 Albumin 4.3 g/dL (3.5-5.2) 06/17/24 15:59 Globulin 2.3 g/dL (1.3-4.6) 06/17/24 15:59 Urine Color Yellow (Yellow) 06/17/24 17:19 Urine Appearance Clear (CLEAR) 06/17/24 17:19 Urine pH 6.0 (5-7) 06/17/24 17:19 Ur Specific [place] 1.022 (1.005-1.030) 06/17/24 17:19 Urine Protein Negative (Negative) 06/17/24 17:19 Urine Glucose (UA) Negative (Normal) 06/17/24 17:19 Urine Ketones Trace (Negative) 06/17/24 17:19 Urine Blood Negative (Negative) 06/17/24 17:19 Urine Nitrate Negative (Negative) 06/17/24 17:19 Urine Bilirubin Negative (Negative) 06/17/24 17:19 Urine Urobilinogen 2.0 mg/dL (Negative) H 06/17/24 17:19 Ur Leukocyte Esterase Negative (Negative) 06/17/24 17:19 Urine RBC 0-2 /hpf (0-2) 06/17/24 17:19 Urine WBC 0-5 /hpf (0-5) 06/17/24 17:19 Ur Squamous Epith Cells 0-5 /hpf (0-5) 06/17/24 17:19 Calcium Oxalate Crystal 0-4 /hpf H 06/17/24 17:19 Amorphous Sediment Not Reportable 06/17/24 17:19 Urine Bacteria None seen /hpf (NONE) 06/17/24 17:19 Hyaline Casts 8.26 /lpf 06/17/24 17:19 A&P Assessment and plan (1) Unstable angina: Patient symptoms suggestive of unstable angina. The EKG is unremarkable. At this point, it would be appropriate to treat him with IV heparin, p.o. Plavix, aspirin and other current medications. May continue on the current medications. Noted to further evaluate his coronary status, he requires a cardiac catheterization. This was discussed with the patient and his in detail which is understood well and consented to proceed. We may go ahead and do scheduled this procedure this afternoon. (2) Abnormal cardiovascular stress test: The abdomen Perfusion scan is suggestive of ischemia in the distribution of the right coronary artery/circumflex artery. For further evaluation of the patient's symptoms, he requires a cardiac catheterization. (3) Atrial fibrillation: Currently he is in a regular rhythm. Advised to continue on the current medication. He had a bleeding complication with the oral anticoagulants in the past. Qualifiers: Atrial fibrillation type: longstanding persistent Qualified Code(s): I48.11 - Longstanding persistent atrial fibrillation (4) Hypertension: Blood pressure is elevated. Will try to optimize the antihypertensive medications. Apparently patient did not get the diltiazem. We will go ahead and give the diltiazem at this time and watch the blood pressure closely. Qualifiers: Hypertension type: essential hypertension Qualified Code(s): I10 - Essential (primary) hypertension (5) Hyperlipidemia: May continue on the current medications. Qualifiers: Hyperlipidemia type: mixed hyperlipidemia Qualified Code(s): E78.2 - Mixed hyperlipidemia (6) Pacemaker: Latest pacemaker interrogation revealed normal pacing function. Continue on the current management. Plan Discussed in detail the risk and benefits of the cardiac catheterization. The risk of bleeding, hematoma, vascular injury, myocardial infarction, myocardial perforation, malignant cardiac arrhythmias ,CVA, renal failure and other concomitant complications were explained in detail. Patient and his family understood this well and consented to proceed. Based on the results, further recommendations will be made. Attestations Medical Necessity Statement*: Patient requires continued hospital stay for close monitoring and further management Coding Level of Care Code 48934 Diagnoses Unstable angina I20.0 Abnormal cardiovascular stress test R94.39 Longstanding persistent atrial fibrillation I48.11 Atrial fibrillation type: longstanding persistent Essential hypertension I10 Hypertension type: essential hypertension Mixed hyperlipidemia E78.2 Hyperlipidemia type: mixed hyperlipidemia Pacemaker Z95.0
[2024-06-18] MEDS: enoxaparin 100 mg/mL Syringe 90 MG SUBCUT (09:55)
[2024-06-18] MEDS: finasteride 5 mg Tablet PO (09:55)
[2024-06-18] MEDS: tamsulosin 0.4 mg Capsule PO (09:55)
[2024-06-18] MEDS: dilTIAZem ER (24HR) 300 mg Capsule PO (09:55)
[2024-06-18] MEDS: aspirin 325 mg Tablet PO (11:19)
[2024-06-18] MEDS: diphenhydrAMINE 50 mg Capsule PO (11:19)
[2024-06-18 12:06] LABS: Glucose Point of Care 81 mg/dL (70-110)
[2024-06-18] MEDS: sodium chloride 0.9% 1,000 ML 50 ML IV (13:10)
--- NOTE | 2024-06-18 15:00 | P.PN_ITS ---
Subjective 2 Subjective: Patient is planned for angiogram later this afternoon. Medications: Reviewed: Yes Medication Review Details: Current Medications Acetaminophen (Acetaminophen 500 Mg Tablet) 500 mg PO Q4H PRN PRN Reason: fever Hydrocodone Bitart/Acetaminophen (Hydrocodone-Acetaminophen 5-325 Mg Tablet) 1 tab PO Q8H PRN PRN Reason: pain (scale score 7-10) Albuterol/Ipratropium (Ipratropium-Albuterol 3 Ml Neb) 3 ml INHALATION Q6H PRN PRN Reason: SHORTNESS OF BREATH Aspirin (Aspirin 81 Mg Ec Tablet) 81 mg PO DAILY [facility] Last Admin: 06/18/24 08:05 Dose: 81 mg Clopidogrel Bisulfate (Clopidogrel 75 Mg Tablet) 75 mg PO DAILY [facility] Last Admin: 06/18/24 08:06 Dose: 75 mg Enoxaparin Sodium (Enoxaparin 100 Mg/Ml Syringe) 90 mg 1 mg/kg (80 mg) SUBCUT Q12H [facility] Last Admin: 06/17/24 22:15 Dose: 90 mg Finasteride (Finasteride 5 Mg Tablet) 5 mg PO DAILY [facility] Glucagon (Glucagon 1 Mg/Ml Kit 1 Ml) 1 mg IM ONCE PRN; Protocol PRN Reason: Adult Acute Hypoglycemia Nursing Prot. Glucagon (Glucagon 1 Mg/Ml Kit 1 Ml) 1 mg IM ONCE PRN; Protocol PRN Reason: Adult Acute Hypoglycemia Nursing Prot. Dextrose (D5w) 500 mls @ 0 mls/hr IV ONCE PRN; Protocol PRN Reason: Adult Acute Hypoglycemia Prot Dextrose (D10w) 125 mls @ 750 mls/hr IV PRN PRN; Protocol PRN Reason: Adult Acute Hypoglycemia Nursing Protocol Dextrose (D10w) 250 mls @ 1,000 mls/hr IV PRN PRN; Protocol PRN Reason: Adult Acute Hypoglycemia Nursing Protocol Dextrose (D5w) 500 mls @ 0 mls/hr IV ONCE PRN; Protocol PRN Reason: Adult Acute Hypoglycemia Prot Dextrose (D10w) 125 mls @ 750 mls/hr IV PRN PRN; Protocol PRN Reason: Adult Acute Hypoglycemia Nursing Protocol Dextrose (D10w) 250 mls @ 1,000 mls/hr IV PRN PRN; Protocol PRN Reason: Adult Acute Hypoglycemia Nursing Protocol Insulin Human Lispro (Insulin Lispro 100 Unit/1 Ml) 0 unit SUBCUT TIDWM [facility]; Protocol Metoprolol Succinate (Metoprolol Succinate Er (24 Hr) 50 Mg Tablet) 100 mg PO DAILY [facility] Last Admin: 06/18/24 08:05 Dose: 100 mg Ondansetron HCl (Ondansetron 2 Mg/Ml Sdv 2 Ml) 4 mg IVP Q6H PRN PRN Reason: NAUSEA AND VOMITING Pantoprazole Sodium (Pantoprazole 40 Mg Sdv) 40 mg IVP BID [facility] Last Admin: 06/18/24 08:05 Dose: 40 mg Pharmacy Profile Note (Formulary Statin) 1 each PO DAILY [facility] Tamsulosin HCl (Tamsulosin 0.4 Mg Capsule) 0.4 mg PO DAILY [facility] Vitals/I&O/Wt Last Vital Signs Temp 98.6 F 06/17/24 16:01 Pulse 62 06/18/24 16:00 Resp 13 06/18/24 18:01 BP 148/85 06/18/24 16:00 Pulse Ox 94 06/18/24 13:00 O2 Del Method Room Air 06/18/24 10:55 06/18/24 06/18/24 06/18/24 06:59 14:59 22:59 Output Total 600 / 1400 Balance -600 / -920 Weight last 48 hrs Weight 88.451 kg Weight 88.5 kg Weight 83.007 kg Physical Exam 2 Narrative: General: No acute distress, AO x3 HEENT: PERRLA, pupils bilaterally equal and reactive, pallors not present Chest: Normal vesicular breath sounds, no added sounds, equal good air entry bilaterally CVS: S1-S2 regular, no murmurs, no tachycardia, no gallops, no rubs Abdomen: Soft, nontender, no organomegaly, bowel sounds present Neuro: No focal deficits, no facial deformity, AO x3, power 5/5 in all limbs Data 06/18/24 04:29 06/18/24 04:29 A&P Assessment and plan (1) Chest pain: Qualifiers: Chest pain type: other chest pain Qualified Code(s): R07.89 - Other chest pain (2) Unstable angina: (3) Pacemaker: (4) Atrial fibrillation: Qualifiers: Atrial fibrillation type: longstanding persistent Qualified Code(s): I 48.11 - Longstanding persistent atrial fibrillation (5) Atherosclerotic heart disease of [place] coronary artery with other forms of angina pectoris: Plan Unstable angina Established atherosclerotic coronary disease Positive stress test To keep patient n.p.o. from midnight Dr. aCrroll consulted Patient will need an angiogram Currently on ACS protocol however troponins are not significantly high Patient symptoms are typical of angina Currently on heparin drip continue dual antiplatelet therapy History of A-fib: Continue AV katherine blocking agent Patient has a pacemaker for tachybradycardia syndrome Not on Eliquis secondary to history of bleed Only take Plavix Considering positive stress test in RCA territory and drop in blood pressure I would not give him more nitroglycerin at this point he is chest pain free I will reduce his AV katherine blocking agent down to only metoprolol for now hold Cardizem, hydrochlorothiazide, Imdur and use morphine for chest pain if he gets any recurrent symptoms overnight Dyslipidemia: Continue statins Full code N.p.o. after midnight Insulin with sliding scale on consistent carb diet until midnight then n.p.o. DVT prophylaxis covered with heparin 06/18/2024. Continue heparin drip. No current chest pain. Plan for angiogram later this afternoon. Attestations 2 Medical Necessity Statement*: Plan angiogram this afternoon. Coding Level of Care Code Acute Code for [facility] Fwd Diagnoses Other chest pain R07.89 Chest pain type: other chest pain Unstable angina I20.0 Pacemaker Z95.0 Longstanding persistent atrial fibrillation I48.11 Atrial fibrillation type: longstanding persistent Atherosclerotic heart disease of [place] coronary artery with other forms of angina pectoris I25.118
[2024-06-18 18:20] LABS: Glucose Point of Care 86 mg/dL (70-110)
[2024-06-18 22:17] LABS: Glucose Point of Care 90 mg/dL (70-110)
--- NOTE | 2024-06-18 23:19 | PC.NURSE ---
TR band removed; dressed with 2x2 gauze and bioclusive; no bleeding or hematoma at this time.
[2024-06-19] VITALS (15 sets, daily range): BP systolic 125–160; BP diastolic 71–97; PULSE 60–78; RESP 16–25; TEMP 37.1; O2SAT 91–98
[2024-06-19 05:43] LABS: Basophils % 0.4 %; Eosinophils # 0.1 10^3/uL (0.0-0.8); Eosinophils % 0.8 %; Hematocrit 44.5 % (37-53); Lymphocytes # 1.7 10^3/uL (0.8-4.8); Lymphocytes % 19.6 %; Mean Corpuscular HGB Conc 31.2 g/dL (30-55); Mean Corpuscular Hemoglobin 30.7 pg (27-33); Mean Corpuscular Volume 98.2 fl (82-101); Mean Platelet Volume 10.4 fL (7.4-10.4); Monocytes # 1.1 10^3/uL (0.2-0.9); Monocytes % 12.5 %; Neutrophils # 5.59 10^3/uL (1.8-7.7); Neutrophils % 66.2 %; Nucleated Red Blood Cells % 0 %; Platelet Count 160 10^3/cmm (157-399); Red Blood Count 4.53 10^6/uL (3.85-5.65); Red Cell Distribution Width 13.4 % (12.1-15.1); White Blood Count 8.45 10^3/uL (3.29-11.43)
[2024-06-19 06:11] LABS: Blood Urea Nitrogen 13 mg/dL (8-23); Calcium 8.3 mg/dL (8.5-10.5); Carbon Dioxide 22 mmol/L (22-29); Chloride 108 mmol/L (98-107); Creatinine Clr Calc Pharmacy 77.0329; Glucose 94 mg/dL (65-115); Osmolality Calculated 292 mOsm/kg (285-295); Sodium 141 mmol/L (136-145)
[2024-06-19 06:14] LABS: Anion Gap 14.8 (5-19); Potassium 3.8 mmol/L (3.5-5.1)
[2024-06-19] MEDS: aspirin 81 mg EC Tablet PO (08:03)
[2024-06-19] MEDS: tamsulosin 0.4 mg Capsule PO (08:03)
[2024-06-19] MEDS: dilTIAZem ER (24HR) 300 mg Capsule PO (08:03)
[2024-06-19] MEDS: clopidogrel 75 mg Tablet PO (08:03)
[2024-06-19] MEDS: finasteride 5 mg Tablet PO (08:03)
[2024-06-19] MEDS: metoprolol succinate ER (24 HR) 50 mg Tablet 100 MG PO (08:03)
[2024-06-19] MEDS: pantoprazole 40 mg SDV IVP (08:04)
[2024-06-19 08:13] LABS: Glucose Point of Care 104 mg/dL (70-110)
--- NOTE | 2024-06-19 11:14 | P.PN_ITS ---
Subjective 2 Subjective: Patient had a cardiac catheterization followed by PCI of the mid circumflex artery lesion yesterday. He had an uneventful postprocedure course. Currently he is remaining stable with no chest pain. No arrhythmias on the monitor. Medications: Medication Review Details: Current Medications Acetaminophen (Acetaminophen 500 Mg Tablet) 500 mg PO Q4H PRN PRN Reason: fever Acetaminophen (Acetaminophen 325 Mg Tablet) 650 mg PO Q6H PRN PRN Reason: MILD PAIN Hydrocodone Bitart/Acetaminophen (Hydrocodone-Acetaminophen 5-325 Mg Tablet) 1 tab PO Q4H PRN PRN Reason: MODERATE TO SEVERE PAIN Al Hydrox/Mg Hydrox/Simethicone (Tfpq-Jec-Hrrtamvcm-Salbador 30 Ml Udc) 30 ml PO Q15M PRN PRN Reason: INDIGESTION Albuterol/Ipratropium (Ipratropium-Albuterol 3 Ml Neb) 3 ml INHALATION Q6H PRN PRN Reason: SHORTNESS OF BREATH Aspirin (Aspirin 81 Mg Ec Tablet) 81 mg PO DAILY [facility] Last Admin: 06/19/24 08:03 Dose: 81 mg Atropine Sulfate (Atropine 1 Mg/Ml Sdv 1 Ml) 0.5 mg IVP PRN PRN PRN Reason: Symptomatic bradycardia Clopidogrel Bisulfate (Clopidogrel 75 Mg Tablet) 75 mg PO DAILY [facility] Last Admin: 06/19/24 07:56 Dose: Not Given Diltiazem HCl (Diltiazem Er (24hr) 300 Mg Capsule) 300 mg PO DAILY [facility] Last Admin: 06/19/24 08:03 Dose: 300 mg Fentanyl (Fentanyl 50 Mcg/Ml Inj 2ml) 50 mcg IVP PRN PRN PRN Reason: Prior to sheath removal Finasteride (Finasteride 5 Mg Tablet) 5 mg PO DAILY [facility] Last Admin: 06/19/24 08:03 Dose: 5 mg Glucagon (Glucagon 1 Mg/Ml Kit 1 Ml) 1 mg IM ONCE PRN; Protocol PRN Reason: Adult Acute Hypoglycemia Nursing Prot. Dextrose (D5w) 500 mls @ 0 mls/hr IV ONCE PRN; Protocol PRN Reason: Adult Acute Hypoglycemia Prot Dextrose (D10w) 125 mls @ 750 mls/hr IV PRN PRN; Protocol PRN Reason: Adult Acute Hypoglycemia Nursing Protocol Dextrose (D10w) 250 mls @ 1,000 mls/hr IV PRN PRN; Protocol PRN Reason: Adult Acute Hypoglycemia Nursing Protocol Insulin Human Lispro (Insulin Lispro 100 Unit/1 Ml) 0 unit SUBCUT TIDWM [facility]; Protocol Last Admin: 06/19/24 08:02 Dose: Not Given Magnesium Hydroxide (Magnesium Hydroxide 30 Ml Udc) 30 ml PO DAILY PRN PRN Reason: CONSTIPATION Metoprolol Succinate (Metoprolol Succinate Er (24 Hr) 50 Mg Tablet) 100 mg PO DAILY [facility] Last Admin: 06/19/24 08:03 Dose: 100 mg Naloxone HCl (Naloxone 0.4 Mg/Ml Sdv) 0.1 mg IVP Q2M PRN PRN Reason: RESPIRATORY RATE < 8/MIN Nitroglycerin (Nitroglycerin 0.4 Mg Sublingual Tablet) 0.4 mg SUBLINGUAL Q5M PRN PRN Reason: CHEST PAIN Ondansetron HCl (Ondansetron 2 Mg/Ml Sdv 2 Ml) 4 mg IVP Q6H PRN PRN Reason: NAUSEA AND VOMITING Pantoprazole Sodium (Pantoprazole 40 Mg Sdv) 40 mg IVP BID [facility] Last Admin: 06/19/24 08:04 Dose: 40 mg Pharmacy Profile Note (Formulary Statin) 1 each PO DAILY [facility] Tamsulosin HCl (Tamsulosin 0.4 Mg Capsule) 0.4 mg PO DAILY [facility] Last Admin: 06/19/24 08:03 Dose: 0.4 mg Temazepam (Temazepam 15 Mg Capsule) 15 mg PO BEDTIME PRN PRN Reason: INSOMNIA Vitals/I&O/Wt Last Vital Signs Temp 98.8 F 06/19/24 05:22 Pulse 68 06/19/24 07:44 Resp 16 06/19/24 07:44 BP 152/97 06/19/24 05:00 Pulse Ox 96 06/19/24 07:44 O2 Del Method Room Air 06/19/24 07:44 06/18/24 06/19/24 06/19/24 22:59 06:59 14:59 Intake Total 240 / 240 Output Total 950 / 950 400 / 1350 Balance -950 / -950 -400 / -1350 240 / 240 Weight last 48 hrs Weight 189 lb Weight 195 lb Weight 195 lb 1.745 oz Weight 183 lb Physical Exam 2 Narrative: GENERAL: The patient is alert and oriented times three. Not in any acute distress. HEENT: No significant pallor, icterus or lymphadenopathy.Oral cavity: There are no mucous membrane lesions. NECK: Trachea appears to be central. No masses noted. No JVD or thyromegaly appreciated. RESPIRATORY: Chest is symmetrical. No intercostals muscle retraction or any accessory muscle activation. There is no chest wall tenderness. Breath sounds are heard bilaterally. No rales or rhonchi heard. No evidence of any consolidation. BREASTS: Deferred. HEART: The heart sounds are normal. No S3 or S4. Short systolic murmur the left sternal border. No diastolic murmurs.. No pericardial rub ABDOMEN: No vessel pulsations or distention. No tenderness. No organomegaly appreciated. Bowel sounds are normally heard. : Deferred. RECTAL: Deferred. LYMPHATIC: No lymphadenopathy noted in the neck. EXTREMITIES: No edema or cyanosis. No clubbing. MUSCULOSKELETAL: No acute joint deformities or swelling SKIN: There are no significant rashes or ecchymosis NEUROPSYCHIATRIC: The patient is alert and oriented x3. Appears to be in a good mood. No tremors or rigidity noted. Data 06/19/24 05:15 06/19/24 05:15 Other Labs: Laboratory Last Values WBC 8.45 10^3/uL (3.29-11.43) 06/19/24 05:15 RBC 4.53 10^6/uL (3.85-5.65) 06/19/24 05:15 Hgb 13.90 g/dL (11.27-16.99) 06/19/24 05:15 Hct 44.5 % (37-53) 06/19/24 05:15 MCV 98.2 fl (82-101) 06/19/24 05:15 MCH 30.7 pg (27-33) 06/19/24 05:15 MCHC 31.2 g/dL (30-55) 06/19/24 05:15 RDW 13.4 % (12.1-15.1) 06/19/24 05:15 Plt Count 160 10^3/cmm (157-399) 06/19/24 05:15 MPV 10.4 fL (7.4-10.4) 06/19/24 05:15 Neut % (Auto) 66.2 % 06/19/24 05:15 Lymph % (Auto) 19.6 % 06/19/24 05:15 [place] % (Auto) 12.5 % 06/19/24 05:15 Eos % (Auto) 0.8 % 06/19/24 05:15 Baso % (Auto) 0.4 % 06/19/24 05:15 Neut # (Auto) 5.59 10^3/uL (1.8-7.7) 06/19/24 05:15 Lymph # (Auto) 1.7 10^3/uL (0.8-4.8) 06/19/24 05:15 [place] # (Auto) 1.1 10^3/uL (0.2-0.9) H 06/19/24 05:15 Eos # (Auto) 0.1 10^3/uL (0.0-0.8) 06/19/24 05:15 Baso # (Auto) 0.0 10^3/uL (0.0-0.1) 06/19/24 05:15 Nucleated RBC % (auto) 0 % 06/19/24 05:15 Nucleated RBCs # 0.0 /100WBC 06/19/24 05:15 Sodium 141 mmol/L (136-145) 06/19/24 05:15 Potassium 3.8 mmol/L (3.5-5.1) 06/19/24 05:15 Chloride 108 mmol/L (98-107) H 06/19/24 05:15 Carbon Dioxide 22 mmol/L (22-29) 06/19/24 05:15 Anion Gap 14.8 (5-19) 06/19/24 05:15 BUN 13 mg/dL (8-23) 06/19/24 05:15 Creatinine 0.7 mg/dL (0.7-1.2) 06/19/24 05:15 GFR Calculation Not Reportable 06/19/24 05:15 Glucose 94 mg/dL (65-115) 06/19/24 05:15 POC Glucose 104 mg/dL (70-110) 06/19/24 08:01 Calculated Osmolality 292 mOsm/kg (285-295) 06/19/24 05:15 Calcium 8.3 mg/dL (8.5-10.5) L 06/19/24 05:15 Magnesium 2.1 mg/dL (1.7-2.3) 06/18/24 04:29 Total Bilirubin 0.5 mg/dL (0.15-1.2) 06/17/24 15:59 AST 18 U/L (0-40) 06/17/24 15:59 ALT 14 U/L (0-41) 06/17/24 15:59 Alkaline Phosphatase 98 U/L (40-130) 06/17/24 15:59 Troponin T Baseline 12 ng/L (0-15) 06/17/24 15:59 Troponin T 120 Minute 10.04 ng/L (0-15) 06/17/24 17:37 Delta Troponin T -1.96 ABS# (0-10) L 06/17/24 17:37 Troponin T Hi Sens 6Hr 10.71 ng/L (0-15) 06/17/24 22:02 Troponin T Hi Sens 6Hr Delta -1.29 ng/L (0-12) L 06/17/24 22:02 Total Protein 6.6 g/dL (6.6-8.7) 06/17/24 15:59 Albumin 4.3 g/dL (3.5-5.2) 06/17/24 15:59 Globulin 2.3 g/dL (1.3-4.6) 06/17/24 15:59 Urine Color Yellow (Yellow) 06/17/24 17:19 Urine Appearance Clear (CLEAR) 06/17/24 17:19 Urine pH 6.0 (5-7) 06/17/24 17:19 Ur Specific [place] 1.022 (1.005-1.030) 06/17/24 17:19 Urine Protein Negative (Negative) 06/17/24 17:19 Urine Glucose (UA) Negative (Normal) 06/17/24 17:19 Urine Ketones Trace (Negative) 06/17/24 17:19 Urine Blood Negative (Negative) 06/17/24 17:19 Urine Nitrate Negative (Negative) 06/17/24 17:19 Urine Bilirubin Negative (Negative) 06/17/24 17:19 Urine Urobilinogen 2.0 mg/dL (Negative) H 06/17/24 17:19 Ur Leukocyte Esterase Negative (Negative) 06/17/24 17:19 Urine RBC 0-2 /hpf (0-2) 06/17/24 17:19 Urine WBC 0-5 /hpf (0-5) 06/17/24 17:19 Ur Squamous Epith Cells 0-5 /hpf (0-5) 06/17/24 17:19 Calcium Oxalate Crystal 0-4 /hpf H 06/17/24 17:19 Amorphous Sediment Not Reportable 06/17/24 17:19 Urine Bacteria None seen /hpf (NONE) 06/17/24 17:19 Hyaline Casts 8.26 /lpf 06/17/24 17:19 A&P Assessment and plan (1) Atherosclerotic heart disease of [place] coronary artery with unstable angina pectoris: Patient had the cardiac catheterization yesterday. He was found to have a high- grade lesion in the mid circumflex artery which was intervened. Mild disease in the other vessels. Will continue on the current medications. Qualifiers: [place] vs. transplanted heart: [place] heart Qualified Code(s): I25.110 - Atherosclerotic heart disease of [place] coronary artery with unstable angina pectoris (2) Atrial fibrillation: Currently he is in a regular rhythm. Advised to continue on the current medication. He had a bleeding complication with the oral anticoagulants in the past. Will continue the Plavix and aspirin Qualifiers: Atrial fibrillation type: longstanding persistent Qualified Code(s): I 48.11 - Longstanding persistent atrial fibrillation (3) Hypertension: The blood pressure seems to be getting under control. May continue on the current management. Qualifiers: Hypertension type: essential hypertension Qualified Code(s): I10 - Essential (primary) hypertension (4) Hyperlipidemia: May continue on the current medications. Qualifiers: Hyperlipidemia type: mixed hyperlipidemia Qualified Code(s): E78.2 - Mixed hyperlipidemia (5) Pacemaker: Latest pacemaker interrogation revealed normal pacing function. Continue on the current management. Plan If the patient continues remain stable, may be discharged from myocardial standpoint. Patient will be seen at [facility] in a week or so. Patient will be seen by me in 3 months Patient is advised to continue the medications as mentioned above. The importance of compliance to diet, medications and exercise were discussed. In the event of the patient developing chest pain ,unusual palpitations or any new symptoms, is advised to contact me or come to the hospital. Attestations 2 Medical Necessity Statement*: Possible discharge home today. Coding Level of Care Code 78260 Diagnoses Atherosclerosis of [place] coronary artery of [place] heart with unstable angina pectoris I25.110 [place] vs. transplanted heart: [place] heart Longstanding persistent atrial fibrillation I48.11 Atrial fibrillation type: longstanding persistent Essential hypertension I10 Hypertension type: essential hypertension Mixed hyperlipidemia E78.2 Hyperlipidemia type: mixed hyperlipidemia Pacemaker Z95.0
--- NOTE | 2024-06-19 11:21 | PM.DCS ---
Discharge Providers Date of Admission: 06/17/24 18:40 Date of Discharge: June 19, 2024 Attending Provider at Admission: Hannah Rodgers MD Attending Provider at Discharge: Erika Blanc MD Primary Care Provider: Francisco Carroll MD Diagnoses at Discharge Discharge Diagnosis (1) Atherosclerotic heart disease of [place] coronary artery with unstable angina pectoris: Status: Acute Qualifiers: [place] vs. transplanted heart: [place] heart Qualified Code(s): I25.110 - Atherosclerotic heart disease of [place] coronary artery with unstable angina pectoris (2) Atrial fibrillation: Status: Acute Qualifiers: Atrial fibrillation type: longstanding persistent Qualified Code(s): I48.11 - Longstanding persistent atrial fibrillation (3) Hypertension: Status: Acute Qualifiers: Hypertension type: essential hypertension Qualified Code(s): I10 - Essential (primary) hypertension (4) Hyperlipidemia: Status: Acute Qualifiers: Hyperlipidemia type: mixed hyperlipidemia Qualified Code(s): E78.2 - Mixed hyperlipidemia (5) Pacemaker: Status: Acute Reason for Visit Reason for Visit: chest pain Hospital Course Hospital Course Patient is an 79-year-old male presenting with tightness in the chest. The patient has a history of coronary artery disease, for which he has been medically managed. The patient recently had a stress test in December 2023 that showed evidence of ischemia in the distribution of the right coronary artery and potential circumflex artery involvement. He was subsequently prescribed isosorbide mononitrate at 30 mg daily, which initially provided relief but is now less effective. He was scheduled for an outpatient cardiac catheterization. But because of this acute worsening of chest pain, he decided to come to the hospital. he underwent cardiac catheterization on 06/18/24 and received stent to mid circumflex. he is doing well post procedure. no chest pain or arrhytmias. He is being discharged today with recommendation to follow up with cardiology out[atient in one week. Physical Exam Narrative: General: No acute distress, AO x3 HEENT: PERRLA, pupils bilaterally equal and reactive, pallors not present Chest: Normal vesicular breath sounds, no added sounds, equal good air entry bilaterally CVS: S1-S2 regular, no murmurs, no tachycardia, no gallops, no rubs Abdomen: Soft, nontender, no organomegaly, bowel sounds present Neuro: No focal deficits, no facial deformity, AO x3, power 5/5 in all limbs Discharge Data Studies Completed and Pending Completed Studies During Hospitalization Category Date Time Status XR chest 1V portable [id number] Stat Exams 06/17/24 16:00 Completed CV. echo complete* [id number] Routine Ultrasound 06/17/24 20:37 Completed Pending at discharge Category Date Time Status [facility] request for service Routine Exams 06/19/24 16:08 Ordered Radiology Impressions Chest X-Ray 06/17/24 16:00 IMPRESSION: No acute cardiopulmonary findings. Laboratory Results WBC 8.45 10^3/uL (3.29-11.43) 06/19/24 05:15 RBC 4.53 10^6/uL (3.85-5.65) 06/19/24 05:15 Hgb 13.90 g/dL (11.27-16.99) 06/19/24 05:15 Hct 44.5 % (37-53) 06/19/24 05:15 MCV 98.2 fl (82-101) 06/19/24 05:15 MCH 30.7 pg (27-33) 06/19/24 05:15 MCHC 31.2 g/dL (30-55) 06/19/24 05:15 RDW 13.4 % (12.1-15.1) 06/19/24 05:15 Plt Count 160 10^3/cmm (157-399) 06/19/24 05:15 MPV 10.4 fL (7.4-10.4) 06/19/24 05:15 Neut % (Auto) 66.2 % 06/19/24 05:15 Lymph % (Auto) 19.6 % 06/19/24 05:15 [place] % (Auto) 12.5 % 06/19/24 05:15 Eos % (Auto) 0.8 % 06/19/24 05:15 Baso % (Auto) 0.4 % 06/19/24 05:15 Neut # (Auto) 5.59 10^3/uL (1.8-7.7) 06/19/24 05:15 Lymph # (Auto) 1.7 10^3/uL (0.8-4.8) 06/19/24 05:15 [place] # (Auto) 1.1 10^3/uL (0.2-0.9) H 06/19/24 05:15 Eos # (Auto) 0.1 10^3/uL (0.0-0.8) 06/19/24 05:15 Baso # (Auto) 0.0 10^3/uL (0.0-0.1) 06/19/24 05:15 Nucleated RBC % (auto) 0 % 06/19/24 05:15 Nucleated RBCs # 0.0 /100WBC 06/19/24 05:15 Sodium 141 mmol/L (136-145) 06/19/24 05:15 Potassium 3.8 mmol/L (3.5-5.1) 06/19/24 05:15 Chloride 108 mmol/L (98-107) H 06/19/24 05:15 Carbon Dioxide 22 mmol/L (22-29) 06/19/24 05:15 Anion Gap 14.8 (5-19) 06/19/24 05:15 BUN 13 mg/dL (8-23) 06/19/24 05:15 Creatinine 0.7 mg/dL (0.7-1.2) 06/19/24 05:15 GFR Calculation Not Reportable 06/19/24 05:15 Glucose 94 mg/dL (65-115) 06/19/24 05:15 POC Glucose 104 mg/dL (70-110) 06/19/24 08:01 Calculated Osmolality 292 mOsm/kg (285-295) 06/19/24 05:15 Calcium 8.3 mg/dL (8.5-10.5) L 06/19/24 05:15 Magnesium 2.1 mg/dL (1.7-2.3) 06/18/24 04:29 Total Bilirubin 0.5 mg/dL (0.15-1.2) 06/17/24 15:59 AST 18 U/L (0-40) 06/17/24 15:59 ALT 14 U/L (0-41) 06/17/24 15:59 Alkaline Phosphatase 98 U/L (40-130) 06/17/24 15:59 Troponin T Baseline 12 ng/L (0-15) 06/17/24 15:59 Troponin T 120 Minute 10.04 ng/L (0-15) 06/17/24 17:37 Delta Troponin T -1.96 ABS# (0-10) L 06/17/24 17:37 Troponin T Hi Sens 6Hr 10.71 ng/L (0-15) 06/17/24 22:02 Troponin T Hi Sens 6Hr Delta -1.29 ng/L (0-12) L 06/17/24 22:02 Total Protein 6.6 g/dL (6.6-8.7) 06/17/24 15:59 Albumin 4.3 g/dL (3.5-5.2) 06/17/24 15:59 Globulin 2.3 g/dL (1.3-4.6) 06/17/24 15:59 Urine Color Yellow (Yellow) 06/17/24 17:19 Urine Appearance Clear (CLEAR) 06/17/24 17:19 Urine pH 6.0 (5-7) 06/17/24 17:19 Ur Specific [place] 1.022 (1.005-1.030) 06/17/24 17:19 Urine Protein Negative (Negative) 06/17/24 17:19 Urine Glucose (UA) Negative (Normal) 06/17/24 17:19 Urine Ketones Trace (Negative) 06/17/24 17:19 Urine Blood Negative (Negative) 06/17/24 17:19 Urine Nitrate Negative (Negative) 06/17/24 17:19 Urine Bilirubin Negative (Negative) 06/17/24 17:19 Urine Urobilinogen 2.0 mg/dL (Negative) H 06/17/24 17:19 Ur Leukocyte Esterase Negative (Negative) 06/17/24 17:19 Urine RBC 0-2 /hpf (0-2) 06/17/24 17:19 Urine WBC 0-5 /hpf (0-5) 06/17/24 17:19 Ur Squamous Epith Cells 0-5 /hpf (0-5) 06/17/24 17:19 Calcium Oxalate Crystal 0-4 /hpf H 06/17/24 17:19 Amorphous Sediment Not Reportable 06/17/24 17:19 Urine Bacteria None seen /hpf (NONE) 06/17/24 17:19 Hyaline Casts 8.26 /lpf 06/17/24 17:19 Vitals Last Vital Signs Temp 98.8 F 06/19/24 05:22 Pulse 68 06/19/24 07:44 Resp 16 06/19/24 07:44 BP 152/97 06/19/24 05:00 Pulse Ox 96 06/19/24 07:44 O2 Del Method Room Air 06/19/24 07:44 Discharge Plan Discharge Patient Disposition: Home Condition: Stable Prescriptions: New aspirin 81 mg Tablet,Delayed Release (Dr/Ec) 81 mg PO DAILY 30 Days Qty: 30 0RF Continued gabapentin 300 mg capsule 300 mg PO BEDTIME alendronate [Fosamax] 70 mg tablet 70 mg PO Q7D Rx Instructions: TAKE ON SATURDAY. cholecalciferol (vitamin D3) 25 mcg (1,000 unit) capsule 1,000 unit PO DAILY rosuvastatin 20 mg tablet 10 mg PO DAILY tamsulosin 0.4 mg capsule 0.4 mg PO DAILY Rx Instructions: TAKE APPROXIMATELY 30 MINUTES AFTER THE SAME MEAL EACH DAY. hydrochlorothiazide 25 mg tablet 25 mg PO QAM metformin 500 mg tablet 250 mg PO BID donepezil 5 mg tablet 10 mg PO BEDTIME finasteride 5 mg tablet 5 mg PO DAILY Plavix 75 mg tablet 75 mg PO DAILY Qty: 30 3RF nitroglycerin 0.4 mg tablet, sublingual 0.4 mg sublingual Q5M PRN (Reason: chest pain) 30 Days Qty: 30 3RF Rx Instructions: until response; do not exceed 3 doses per episode isosorbide mononitrate 30 mg tablet extended release 24 hr 30 mg PO DAILY Qty: 90 3RF hydroxyzine HCl 10 mg Tablet 10 mg PO BID PRN (Reason: Anxiety) metoprolol succinate 100 mg Tablet Extended Release 24 Hr 100 mg PO DAILY diltiazem HCl [Tiazac] 300 mg Capsule,Extended Release 24 Hr 300 mg PO QAM tramadol 50 mg Tablet 50 mg PO Q6H PRN (Reason: Pain) Discharge Orders: Discharge Order (Routine); Ordered 06/19/24 Ordered By: Erika Blanc Referrals: Blanche Nelson MD [Referring] - Kareen Song FNP [Nurse Practitioner] - 1 week Francisco Carroll MD [Primary Care Provider] - 1 month Discharge Diet: Cardiac Discharge Activity: Increase activity as tolerated Patient Instructions: Opioid Safety Discharge Attestations Time Spent in Discharge Care*: greater than 30 min Quality Metrics Clinical Quality Measures [ No reported AMI, CVA or VTE this stay] Coding Level of Care Code Acute Code for g Fwd Diagnoses Atherosclerosis of [place] coronary artery of [place] heart with unstable angina pectoris I25.110 [place] vs. transplanted heart: [place] heart Longstanding persistent atrial fibrillation I48.11 Atrial fibrillation type: longstanding persistent Essential hypertension I10 Hypertension type: essential hypertension Mixed hyperlipidemia E78.2 Hyperlipidemia type: mixed hyperlipidemia Pacemaker Z95.0
--- NOTE | 2024-06-19 11:40 | PC.SOCIAL ---
IMM Updated Updated pt on IMM. No questions voiced. Provided pt a copy. Initialed, dated, & timed a copy & placed in chart.
== END 2024-06-19 12:20 | disposition home or self-care (01) | DRG 322 ==
LOC: ER 17:41 → ICU 18:41
PROVIDERS: Internal Medicine; Internal Medicine Cardiovascular Disease; Admitting Provider Internal Medicine; Emergency Provider Family Medicine; PCP Internal Medicine Cardiovascular Disease; Visit Provider Student in an Organized Health Care Education/Training Program
PROC: 4A023N7 Measurement of Cardiac Sampling and Pressure, Left Heart, Percutaneous Approach (ICD-10-PCS; principal; 2024-06-18 16:15)
PROC: 027034Z Dilation of Coronary Artery, One Artery with Drug-eluting Intraluminal Device, Percutaneous Approach (ICD-10-PCS; 2024-06-18 16:15)
DX: I25.110 Atherosclerotic heart disease of native coronary artery with unstable angina pectoris (principal); I48.11 Longstanding persistent atrial fibrillation; N13.8 Other obstructive and reflux uropathy; I10 Essential (primary) hypertension; E78.5 Hyperlipidemia, unspecified; I49.5 Sick sinus syndrome; N40.1 Benign prostatic hyperplasia with lower urinary tract symptoms; E11.9 Type 2 diabetes mellitus without complications; I25.9 Chronic ischemic heart disease, unspecified; Z95.0 Presence of cardiac pacemaker; Z87.891 Personal history of nicotine dependence; Z85.828 Personal history of other malignant neoplasm of skin; Z79.02 Long term (current) use of antithrombotics/antiplatelets; Z79.84 Long term (current) use of oral hypoglycemic drugs
CPT/HCPCS: 36415; 36416; 71045; 80048; 80053; 81001; 82962; 83735; 84484; 85025; 93005; 93306; 93458; 96365; 96366; 96372; 99152; 99153; 99285; C1725; C1769; C1874; C1887; C1894; C9600; J1644; J1650; J2250; J2470; J3010; J3490; J7030; Q0163; Q9967

== ENCOUNTER → 2024-06-25 12:58 | Outpatient (BNVA) | payer OTHER, SELFPAY | PROVIDERS: PCP Internal Medicine Cardiovascular Disease; Visit Provider Nurse Practitioner Family | DX: I25.10 Atherosclerotic heart disease of native coronary artery without angina pectoris (principal); E78.2 Mixed hyperlipidemia; R94.39 Abnormal result of other cardiovascular function study; Z95.0 Presence of cardiac pacemaker; I10 Essential (primary) hypertension; Z87.891 Personal history of nicotine dependence | CPT/HCPCS: 36415; 80048; 85025; 99213 ==

== ENCOUNTER 2024-09-02 16:25 | Emergency (ER) | payer OTHER, MEDICARE, SELFPAY ==
--- NOTE | 2024-09-02 16:26 | XRR_ITS ---
PROCEDURE INFORMATION: Exam: XR Chest Exam date and time: 09/02/2024 5:02 PM Age: 79 years old Clinical indication: Cough TECHNIQUE: Imaging protocol: Radiologic exam of the chest. Views: 1 view. COMPARISON: CR XR chest 1V portable [id number] 06/17/2024 4:26 PM FINDINGS: Tubes, catheters and devices: Pacer device noted in the left chest wall. Lungs: Unremarkable. No consolidation. Pleural spaces: Unremarkable. No pleural effusion. No pneumothorax. Heart/Mediastinum: Unremarkable. No cardiomegaly. Bones/joints: Unremarkable. XR/XR chest 1V portable [id number] IMPRESSION: No acute findings.
[2024-09-02 16:49] VITALS: BP 148/87; PULSE 78; RESP 18; TEMP 36.7; O2SAT 92
--- NOTE | 2024-09-02 16:56 | ECG_ITS ---
[facility] [place] [facility] Date: 2024-09-02 Pat Name: Roverto Crawley Department: Room: Gender: Male [place] Planter: : 1945 Requested By: Jackeline Mcghee Order Number: [id number] Rogelio MD: Jett Rod M.D. Measurements Intervals [place] Rate: 66 P: 70 FL: 216 QRS: 76 QRSD: 103 T: -5 QT: 431 QTc: 452 Interpretive Statements ELECTRONIC ATRIAL PACEMAKER INCOMPLETE RIGHT BUNDLE BRANCH BLOCK [90+ ms QRS DURATION, TERMINAL R IN V1/V2, 40+ ms S IN I/aVL/V4/V5/V6] ABNORMAL QRS-T ANGLE [QRS-T AXIS DIFFERENCE > 60] Compared to ECG 06/17/2024 23:11:30 Incomplete right bundle-branch block now present Ventricular-paced complex(es) or rhythm no longer present Electronically Signed On 09-03-2024 11:13:50 SENIOR ENGINEERING TECHNICIAN by Jett Rod M.D. [email or web address]
--- NOTE | 2024-09-02 17:28 | ED_ITS ---
HPI - URI/Sore Throat 2 General: Chief Complaint: Upper Respiratory Infection Stated Complaint: chest conjestion Time Seen by Provider: 09/02/24 16:58 History of Present Illness: 79-year-old man with a history of moon ry artery disease status post stents on Plavix, atrial fibrillation status post pacemaker placement and no longer on anticoagulation for this as he was having bleeding issues, diabetes, hyperlipidemia, and BPH who presents to the emergency room with shortness of breath. This been going on for about 2 weeks. He has had increased cough. He was treated with amoxicillin and some [id number] meds by telemedicine doctor I think through the [place]. He says over the last few days he has developed worsening shortness of breath. He said for 3 days he has not been able to sleep flat. He is also developed increased swelling in his legs. No known history of heart failure. He has had some tightness in the center of his chest he says. No abdominal pain. No nausea or vomiting. Related Data Home Medications Medication Instructions Recorded Confirmed alendronate 70 mg tablet (Fosamax) 70 mg PO Q7D 11/04/19 06/25/24 cholecalciferol (vitamin D3) 25 1,000 unit PO DAILY 11/04/19 06/25/24 mcg (1,000 unit) capsule gabapentin 300 mg capsule 300 mg PO BEDTIME 11/04/19 06/25/24 hydrochlorothiazide 25 mg tablet 25 mg PO QAM 11/04/19 06/25/24 metformin 500 mg tablet 250 mg PO BID 11/04/19 06/25/24 rosuvastatin 20 mg tablet 10 mg PO DAILY 11/04/19 06/25/24 tamsulosin 0.4 mg capsule 0.4 mg PO DAILY 11/04/19 06/25/24 hydroxyzine HCl 10 mg tablet 10 mg PO BID PRN Anxiety 12/21/20 06/25/24 donepezil 5 mg tablet 10 mg PO BEDTIME 05/14/22 06/25/24 finasteride 5 mg tablet 5 mg PO DAILY 01/01/23 06/25/24 diltiazem HCl 300 mg capsule,24 300 mg PO QAM 06/18/24 06/25/24 hr,extended release (Tiazac) metoprolol succinate 100 mg 100 mg PO DAILY 06/18/24 06/25/24 tablet,extended release 24 hr tramadol 50 mg tablet 50 mg PO Q6H PRN Pain 06/18/24 06/25/24 Previous Rx's Medication Instructions Recorded clopidogrel 75 mg tablet (Plavix) 75 mg PO DAILY #30 tabs 12/17/22 isosorbide mononitrate 30 mg 30 mg PO DAILY #90 tabs 01/07/24 tablet,extended release 24 hr dexamethasone 6 mg tablet 6 mg PO DAILY 5 days #5 tabs 09/02/24 doxycycline monohydrate 100 mg 100 mg PO BID 10 days #20 caps 09/02/24 capsule Allergies Allergy/AdvReac Type Severity Reaction Status Date / Time atorvastatin Allergy ALGY-Rash Verified 09/02/24 16:55 metronidazole Allergy ALGY-Rash Verified 09/02/24 16:55 pravastatin Allergy Unknown Verified 09/02/24 16:55 Review of Systems 2 Narrative: Constitutional symptoms: Negative except as documented in HPI. Skin symptoms: Negative except as documented in HPI. Eye symptoms: Negative except as documented in HPI. ENMT symptoms: Negative except as documented in HPI. Respiratory symptoms: Negative except as documented in HPI. Cardiovascular symptoms: Negative except as documented in HPI. Gastrointestinal symptoms: Negative except as documented in HPI. Genitourinary symptoms: Negative except as documented in HPI. Musculoskeletal symptoms: Negative except as documented in HPI. Neurologic symptoms: Negative except as documented in HPI. Psychiatric symptoms: Negative except as documented in HPI. Endocrine symptoms: Negative except as documented in HPI. PFSH ED 2 PFSH: Medical History History of nonmelanoma skin cancer BPH NOS w ur obs/LUTS Diabetes mellitus Pacemaker Hyperlipidemia Type 2 diabetes mellitus Hypertension Ureteral stricture Elevated PSA (~08/13/20) Erectile dysfunction Tachy-brandon syndrome Atrial fibrillation Surgical History H/O hernia repair H/O spinal fusion History of knee replacement Family History Mother , 80's No problems noted. Father , 80's No problems noted. Other CAD (coronary artery disease) Cancer Diabetes Stroke Social History Smoking and tobacco/nicotine status: former use of tobacco/nicotine Alcohol intake: never Substance/Drug Use: never Household members: spouse Marital status: service: Yes Current occupational status: retired Physical Exam 2 Narrative: EXAM NARRATIVE: General: Alert, no acute distress. Skin: Warm, dry. Head: Normocephalic, atraumatic. Neck: Supple, trachea midline. Eye: Extraocular movements are intact. Ears, nose, mouth and throat: mucosa moist. Cardiovascular: Regular, Normal peripheral perfusion. Trace tibial edema Respiratory: Coarse breath sounds, no wheeze or crackles, respirations are non- labored, breath sounds are equal, Symmetrical chest wall expansion. Gastrointestinal: Soft, Nontender, Non distended Musculoskeletal: Normal ROM, no deformity. Neurological: Alert and oriented, No focal neurological deficit observed. Psychiatric: Cooperative, appropriate mood & affect. Course 2 Vital Signs: Vital signs: Vital Signs Temperature 98.0 F 09/02/24 16:49 Pulse Rate 76 09/02/24 20:00 Respiratory Rate 18 09/02/24 16:49 Blood Pressure 155/91 09/02/24 20:00 Pulse Oximetry 93 09/02/24 20:00 Oxygen Delivery Me thod Room Air 09/02/24 20:00 MDM - URI/Sore Throat Medical Decision Making Differential diagnosis for patient with shortness of breath includes but is not limited to and based on the above HPI, review of systems and physical exam: Pneumonia. Bronchitis. Asthma or COPD with acute exacerbation. Acute coronary syndrome / CO. Pulmonary embolism. Anxiety. Congestive heart failure. Viral infections including influenza and Covid-19. Atrial fibrillation. Anxiety. Pleural effusion. Pneumothorax. Orders placed to evaluate differential diagnosis based on the above differential, HPI and physical exam EKG: Time 1656. Rate 66. Normal sinus rhythm, No ST-T changes, no ectopy, paced rhythm, this was reviewed and interpreted by myself the emergency room physician at 1700 Chest x-ray: Pacemaker is in place on the left chest with wires that appear intact. No acute process. No infiltrate. No pneumothorax. This was reviewed and interpreted by myself the emergency room physician. I also reviewed the radiology report. Lab Review: Laboratory results were reviewed and interpreted by myself the emergency room physician. Lab work is unremarkable. No leukocytosis. No anemia. No renal failure. No elevation his proBNP so likely not heart failure. Also given that he does not have a cardiomegaly seems less likely as well. Very mild edema. Serial cardiac markers are negative as well. I reviewed the patient's medical record. Reexamination: Patient remained stable. No increased work of breathing. No altered mental status. No focal motor deficits. No oxygen requirements. No increased work of breathing. Assessment and plan: Bronchitis ?Doxycycline and Decadron in the emergency room - Discharged home - Discussed findings and plan with patient. Answered any questions. - All laboratory values were reviewed and interpreted personally by myself, the ER physician - All imaging was reviewed and interpreted personally by myself, the ER physician. - Evaluation and treatment of this problem were appropriate in the emergency setting Lab Data 09/02/24 18:08 09/02/24 18:08 Radiology Impressions Chest X-Ray 09/02/24 16:26 IMPRESSION: No acute findings. Laboratory Results WBC 8.49 10^3/uL (3.29-11.43) 09/02/24 18:08 RBC 4.30 10^6/uL (3.85-5.65) 09/02/24 18:08 Hgb 12.70 g/dL (11.27-16.99) 09/02/24 18:08 Hct 39.9 % (37-53) 09/02/24 18:08 MCV 92.8 fl (82-101) 09/02/24 18:08 MCH 29.5 pg (27-33) 09/02/24 18:08 MCHC 31.8 g/dL (30-55) 09/02/24 18:08 RDW 14.9 % (12.1-15.1) 09/02/24 18:08 Plt Count 274 10^3/cmm (157-399) 09/02/24 18:08 MPV 9.5 fL (7.4-10.4) 09/02/24 18:08 Neut % (Auto) 64.2 % 09/02/24 18:08 Lymph % (Auto) 22.4 % 09/02/24 18:08 Nuckolls % (Auto) 9.8 % 09/02/24 18:08 Eos % (Auto) 0.8 % 09/02/24 18:08 Baso % (Auto) 0.4 % 09/02/24 18:08 Neut # (Auto) 5.46 10^3/uL (1.8-7.7) 09/02/24 18:08 Lymph # (Auto) 1.9 10^3/uL (0.8-4.8) 09/02/24 18:08 Nuckolls # (Auto) 0.8 10^3/uL (0.2-0.9) 09/02/24 18:08 Eos # (Auto) 0.1 10^3/uL (0.0-0.8) 09/02/24 18:08 Baso # (Auto) 0.0 10^3/uL (0.0-0.1) 09/02/24 18:08 Nucleated RBC % (auto) 0 % 09/02/24 18:08 Nucleated RBCs # 0.0 /100WBC 09/02/24 18:08 Sodium 144 mmol/L (136-145) 09/02/24 18:08 Potassium 3.4 mmol/L (3.5-5.1) L 09/02/24 18:08 Chloride 106 mmol/L (98-107) 09/02/24 18:08 Carbon Dioxide 28 mmol/L (22-29) 09/02/24 18:08 Anion Gap 13.4 (5-19) 09/02/24 18:08 BUN 13 mg/dL (8-23) 09/02/24 18:08 Creatinine 0.7 mg/dL (0.7-1.2) 09/02/24 18:08 GFR Calculation Not Reportable 09/02/24 18:08 Glucose 93 mg/dL (65-115) 09/02/24 18:08 Calculated Osmolality 298 mOsm/kg (285-295) H 09/02/24 18:08 Lactic Acid 0.9 mmol/L (0.5-2.2) 09/02/24 18:08 Calcium 9.0 mg/dL (8.5-10.5) 09/02/24 18:08 Total Bilirubin 0.4 mg/dL (0.15-1.2) 09/02/24 18:08 AST 21 U/L (0-40) 09/02/24 18:08 ALT 24 U/L (0-41) 09/02/24 18:08 Alkaline Phosphatase 93 U/L (40-130) 09/02/24 18:08 Troponin T Baseline 19 ng/L (0-15) H 09/02/24 18:08 Troponin T 120 Minute 17.95 ng/L (0-15) H 09/02/24 19:24 Delta Troponin T -1.05 ABS# (0-10) L 09/02/24 19:24 NT-Pro-B Natriuret Pep 296 pg/mL (0-450) 09/02/24 18:08 Total Protein 6.2 g/dL (6.6-8.7) L 09/02/24 18:08 Albumin 3.8 g/dL (3.5-5.2) 09/02/24 18:08 Globulin 2.4 g/dL (1.3-4.6) 09/02/24 18:08 Coronavirus (PCR) Negative (Negative) 09/02/24 17:26 Influenza A (PCR) Negative (Negative) 09/02/24 17:26 Influenza Type B (PCR) Negative (Negative) 09/02/24 17:26 RSV (PCR) Negative (Negative) 09/02/24 17:26 All radiology interpretation(s) finalized by discharge Discharge Plan Discharge Patient Disposition: Home Clinical Impression: Bronchitis Condition: Stable Prescriptions: New dexamethasone 6 mg tablet 6 mg PO DAILY 5 Days Qty: 5 0RF doxycycline monohydrate 100 mg capsule 100 mg PO BID 10 Days Qty: 20 0RF No Action gabapentin 300 mg capsule 300 mg PO BEDTIME alendronate [Fosamax] 70 mg tablet 70 mg PO Q7D Rx Instructions: TAKE ON SATURDAY. cholecalciferol (vitamin D3) 25 mcg (1,000 unit) capsule 1,000 unit PO DAILY rosuvastatin 20 mg tablet 10 mg PO DAILY tamsulosin 0.4 mg capsule 0.4 mg PO DAILY Rx Instructions: TAKE APPROXIMATELY 30 MINUTES AFTER THE SAME MEAL EACH DAY. hydrochlorothiazide 25 mg tablet 25 mg PO QAM metformin 500 mg tablet 250 mg PO BID donepezil 5 mg tablet 10 mg PO BEDTIME finasteride 5 mg tablet 5 mg PO DAILY Plavix 75 mg tablet 75 mg PO DAILY Qty: 30 3RF isosorbide mononitrate 30 mg tablet extended release 24 hr 30 mg PO DAILY Qty: 90 3RF hydroxyzine HCl 10 mg Tablet 10 mg PO BID PRN (Reason: Anxiety) metoprolol succinate 100 mg Tablet Extended Release 24 Hr 100 mg PO DAILY diltiazem HCl [Tiazac] 300 mg Capsule,Extended Release 24 Hr 300 mg PO QAM tramadol 50 mg Tablet 50 mg PO Q6H PRN (Reason: Pain) Discharge Orders: Discharge ED (Routine); Ordered 09/02/24 Ordered By: Marisel Delaney Referrals: Francisco Carroll MD [Primary Care Provider] - Discharge Diet: Usual diet Discharge Activity: Increase activity as tolerated Patient Instructions: Acute Bronchitis (ED), Opioid Safety, Pain Management Activity Restrictions/Additional Instructions: Thank you for choosing [facility] for your healthcare needs today. Please realize this is an emergency room and that we are providing you with a medical screening exam and this may not be complete and all inclusive of all the testing and or work up that you may need to determine your ailment or severity of your illness. You have been screened and evaluated and felt safe for discharge. Health conditions do change or evolve sometimes and as such it is important that you follow up with your Primary Doctor to be re checked, 3-5 days is a general good time frame for follow up. You are always welcome to return to the ED for re assessment if your symptoms are worsening or you have new concerns Coding Level of Care Code ED Uniform Room Attendant for Pily Aguirre
[2024-09-02 18:16] VITALS: BP 144/83; PULSE 69; O2SAT 93
[2024-09-02 18:24] LABS: Basophils % 0.4 %; Eosinophils # 0.1 10^3/uL (0.0-0.8); Eosinophils % 0.8 %; Hematocrit 39.9 % (37-53); Lymphocytes # 1.9 10^3/uL (0.8-4.8); Lymphocytes % 22.4 %; Mean Corpuscular HGB Conc 31.8 g/dL (30-55); Mean Corpuscular Hemoglobin 29.5 pg (27-33); Mean Corpuscular Volume 92.8 fl (82-101); Mean Platelet Volume 9.5 fL (7.4-10.4); Monocytes # 0.8 10^3/uL (0.2-0.9); Monocytes % 9.8 %; Neutrophils # 5.46 10^3/uL (1.8-7.7); Neutrophils % 64.2 %; Nucleated Red Blood Cells % 0 %; Platelet Count 274 10^3/cmm (157-399); Red Cell Distribution Width 14.9 % (12.1-15.1); White Blood Count 8.49 10^3/uL (3.29-11.43)
[2024-09-02 18:46] LABS: Lactic Sepsis W/Reflex 0.9 mmol/L (0.5-2.2)
[2024-09-02 18:48] LABS: Troponin(5th) Baseline 19 ng/L (0-15)
[2024-09-02 18:57] LABS: Covid PCR NEGATIVE (Negative); Influenza A NEGATIVE (Negative); Influenza B NEGATIVE (Negative); Respiratory Syncytial Virus Ce NEGATIVE (Negative)
[2024-09-02 18:57] LABS: Alanine Aminotransferase 24 U/L (0-41); Albumin Level 3.8 g/dL (3.5-5.2); Alkaline Phosphatase 93 U/L (40-130); Aspartate Amino Transferase 21 U/L (0-40); Blood Urea Nitrogen 13 mg/dL (8-23); Carbon Dioxide 28 mmol/L (22-29); Chloride 106 mmol/L (98-107); Creatinine Clr Calc Pharmacy 75.3321; Globulin 2.4 g/dL (1.3-4.6); Glucose 93 mg/dL (65-115); NT Pro B Type Natriuretic Pept 296 pg/mL (0-450); Osmolality Calculated 298 mOsm/kg (285-295); Sodium 144 mmol/L (136-145); Total Bilirubin 0.4 mg/dL (0.15-1.2); Total Protein 6.2 g/dL (6.6-8.7)
--- NOTE | 2024-09-02 19:04 | ECG_ITS ---
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 Measurements Intervals [place] Rate: 61 P: 76 AK: 191 QRS: 62 QRSD: 109 T: -14 QT: 443 QTc: 447 Interpretive Statements ELECTRONIC ATRIAL PACEMAKER INCOMPLETE RIGHT BUNDLE BRANCH BLOCK [90+ ms QRS DURATION, TERMINAL R IN V1/V2, 40+ ms S IN I/aVL/V4/V5/V6] ABNORMAL QRS-T ANGLE [QRS-T AXIS DIFFERENCE > 60] Compared to ECG 09/02/2024 16:56:01 No significant changes Electronically Signed On 09-05-2024 13:41:43 [employer] by Jett Rod M.D. [email or web address]
[2024-09-02 19:05] LABS: Anion Gap 13.4 (5-19); Potassium 3.4 mmol/L (3.5-5.1)
[2024-09-02] MEDS: dexamethasone 10 mg/mL INJ IVP (19:21)
[2024-09-02] MEDS: doxycycline 100 MG in sodium chloride 0.9% (plus) 100 ML IV (19:22)
[2024-09-02 19:29] VITALS: BP 162/97; PULSE 60; O2SAT 94
[2024-09-02 19:30] VITALS: BP 160/93; PULSE 61; O2SAT 96
[2024-09-02 20:00] VITALS: BP 155/91; PULSE 76; O2SAT 93
[2024-09-02 20:15] LABS: Troponin 5 2HR 17.95 ng/L (0-15)
[2024-09-02 20:19] LABS: Troponin 5 2HR Delta -1.05 ABS# (0-10)
[2024-09-02 20:46] VITALS: BP 185/94; PULSE 86; O2SAT 94
== END 2024-09-02 20:46 | disposition home or self-care (01) ==
PROVIDERS: Emergency Medicine; Emergency Provider Emergency Medicine; PCP Internal Medicine Cardiovascular Disease
DX: J40 Bronchitis, not specified as acute or chronic (principal); Z11.52 Encounter for screening for COVID-19; Z87.891 Personal history of nicotine dependence; E11.9 Type 2 diabetes mellitus without complications; E78.5 Hyperlipidemia, unspecified; Z95.0 Presence of cardiac pacemaker; I25.10 Atherosclerotic heart disease of native coronary artery without angina pectoris; I10 Essential (primary) hypertension
CPT/HCPCS: 36415; 71045; 80053; 83605; 83880; 84484; 85025; 87040; 87637; 93005; 96365; 96375; 99285; J1100; J3490

== ENCOUNTER → 2024-09-16 09:31 | Outpatient (BNVA) | payer OTHER, MEDICARE, SELFPAY | PROVIDERS: PCP Internal Medicine Cardiovascular Disease; Visit Provider Internal Medicine Cardiovascular Disease | DX: Z45.018 Encounter for adjustment and management of other part of cardiac pacemaker (principal) | CPT/HCPCS: 93296 ==

== ENCOUNTER → 2024-11-26 14:06 | Outpatient (BNVA) | payer OTHER, MEDICARE, SELFPAY | PROVIDERS: PCP Family Medicine; Visit Provider Internal Medicine Cardiovascular Disease | DX: I25.110 Atherosclerotic heart disease of native coronary artery with unstable angina pectoris (principal); I48.11 Longstanding persistent atrial fibrillation; Z79.01 Long term (current) use of anticoagulants; I10 Essential (primary) hypertension; E78.2 Mixed hyperlipidemia; Z95.0 Presence of cardiac pacemaker; Z87.891 Personal history of nicotine dependence | CPT/HCPCS: 99214 ==

== ENCOUNTER 2025-01-12 11:50 | Outpatient (RCR) | payer OTHER, SELFPAY | END 2025-02-01 23:59 | disposition home or self-care (01) | LOC: SPT 11:50 | PROVIDERS: Visit Provider Family Medicine | DX: M54.50 Low back pain, unspecified (principal) | CPT/HCPCS: 97110; 97161 ==

== ENCOUNTER 2025-02-02 05:00 | Outpatient (RCR) | payer OTHER, SELFPAY | END 2025-03-04 23:59 | disposition home or self-care (01) | LOC: SPT 05:00 | PROVIDERS: Visit Provider Family Medicine | DX: M54.50 Low back pain, unspecified (principal) | CPT/HCPCS: 97110; 97140 ==

== ENCOUNTER 2025-03-05 06:30 | Outpatient (RCR) | payer OTHER, SELFPAY | END 2025-03-18 10:35 | disposition home or self-care (01) | LOC: SPT 06:30 | PROVIDERS: Visit Provider Family Medicine | DX: M54.50 Low back pain, unspecified (principal) | CPT/HCPCS: 97110 ==

== ENCOUNTER → 2025-03-24 10:33 | Outpatient (BNVA) | payer OTHER, SELFPAY | PROVIDERS: Visit Provider Internal Medicine Cardiovascular Disease | DX: Z45.018 Encounter for adjustment and management of other part of cardiac pacemaker (principal) | CPT/HCPCS: 93296 ==

== ENCOUNTER → 2025-04-19 11:27 | Outpatient (BNVA) | payer OTHER, SELFPAY | PROVIDERS: PCP Family Medicine; Visit Provider Internal Medicine Cardiovascular Disease | DX: I25.118 Atherosclerotic heart disease of native coronary artery with other forms of angina pectoris (principal); R07.9 Chest pain, unspecified; I48.11 Longstanding persistent atrial fibrillation; Z79.02 Long term (current) use of antithrombotics/antiplatelets; I10 Essential (primary) hypertension; E78.5 Hyperlipidemia, unspecified; Z95.0 Presence of cardiac pacemaker; Z98.61 Coronary angioplasty status; Z87.891 Personal history of nicotine dependence; I31.9 Disease of pericardium, unspecified; R06.02 Shortness of breath | CPT/HCPCS: 36415; 83880; 84484; 93005; 99214 ==

== ENCOUNTER 2025-06-14 12:42 | Outpatient (CLI) | payer OTHER, SELFPAY ==
--- NOTE | 2025-06-14 12:47 | CT_ITS ---
WS: [id number] CT ABDOMEN AND PELVIS NONCONTRAST HISTORY: BLADDER STONES TECHNIQUE: Imaging performed through the abdomen and pelvis. Coronal and sagittal reformats are submitted. All CT scans at [facility] use at least one of these dose optimization techniques: automated exposure control; mA and/or kV adjustment per patient size (includes targeted exams where dose is matched to clinical indication); or iterative reconstruction. DLP: 570.60 mGy.cm COMPARISON: 11/10/2018 Lower thorax: Small hiatal hernia. Stable 5 mm noncalcified nodule at the RIGHT lung base. Mild cardiomegaly. Liver: Normal size liver. No mass or bile duct dilatation. Gallbladder: Normal gallbladder. No pericholecystic fluid or cholelithiasis. No gallbladder wall thickening. Pancreas: Normal size and attenuation. Normal pancreatic duct. No pancreatitis or mass. Spleen: Normal. Adrenal glands: Normal. No mass. Right kidney: Normal size kidney with no obstruction. Low-attenuation cortical lesion 1.5 cm lower pole. Cyst noted in this location on the prior study. Left kidney: Normal size kidney with mild perinephric stranding. Cyst with wall calcification extending lateral from the kidney. Maximum diameter is 5.8 cm. The wall calcification is new since 11/10/2018. Aorta: Mild atherosclerosis abdominal aorta with no aneurysm. No free fluid, intraperitoneal air or significant lymphadenopathy. GI tract: Nondistended stomach. No small bowel obstruction. Numerous diverticula throughout the colon. No evidence for acute diverticulitis. Normal appendix. No stricture or obstruction. Abdominal wall: Tiny ventral abdominal wall hernia. Hernia contains fat only. Pelvis: Moderate size bilateral inguinal hernias containing fat only. Urinary bladder is well distended. No bladder stones are identified. Prostate is slightly enlarged. Osseous structures: T12 hemangioma. CT/CT kidney stone [id number] IMPRESSION: 1. No urinary bladder calcifications. 2. Previously described cyst in the LEFT kidney now contains wall calcificatio n with a maximum diameter of 5.8 cm. Cyst has also increased in size from 4.2 t o 5.8 cm. 3. Low-attenuation mass inferior pole RIGHT kidney with low-attenuation probab ly also a cyst with slight increase in size from 05/14/2018. 4. Diffuse colonic diverticulosis without evidence for acute diverticulitis. 5. Large bilateral fat-containing inguinal hernias.
== END 2025-06-14 12:43 | disposition home or self-care (01) ==
LOC: RAD 12:43
PROVIDERS: PCP Family Medicine; Visit Provider Nurse Practitioner Family
DX: N21.0 Calculus in bladder (principal); N28.89 Other specified disorders of kidney and ureter; N28.1 Cyst of kidney, acquired; K57.30 Diverticulosis of large intestine without perforation or abscess without bleeding; K40.30 Unilateral inguinal hernia, with obstruction, without gangrene, not specified as recurrent; K44.9 Diaphragmatic hernia without obstruction or gangrene; R91.1 Solitary pulmonary nodule; I51.7 Cardiomegaly; I70.0 Atherosclerosis of aorta; D18.09 Hemangioma of other sites
CPT/HCPCS: 74176